=== PATIENT | male | born 1980 | race American Indian/Alaskan Native ===

== ENCOUNTER 2020-12-07 10:12 | Emergency (ER) | payer OTHER, SELFPAY ==
[2020-12-07 10:48] VITALS: BP 123/83; PULSE 93; RESP 16; TEMP 37.1; O2SAT 97
--- NOTE | 2020-12-07 11:00 | ED.DENTAL ---
HPI - Dental/Oral General Chief complaint: Dental/Oral <Felipe Bruce NP - Last Filed: 12/07/20 11:07> Stated complaint: dental pain <Felipe Bruce NP - Last Filed: 12/07/20 11:07> Time Seen by Provider: 12/07/20 10:59 <Felipe Bruce NP - Last Filed: 12/07/20 11:07> Source: patient <Felipe Bruce NP - Last Filed: 12/07/20 11:07> Mode of arrival: ambulatory <Felipe Bruce NP - Last Filed: 12/07/20 11:07> Limitations: no limitations <Felipe Bruce NP - Last Filed: 12/07/20 11:07> History of Present Illness MD Complaint: tooth pain <Felipe Bruce NP - Last Filed: 12/07/20 11:07> Location: Tooth # ([id number] ) <Felipe Bruce NP - Last Filed: 12/07/20 11:07> Severity scale (1-10): 6 <Felipe Bruce NP - Last Filed: 12/07/20 11:07> Relieving factors: nothing <Felipe Bruce NP - Last Filed: 12/07/20 11:07> Context: history of dental caries <Felipe Bruce NP - Last Filed: 12/07/20 11:07> Treatment prior to arrival: none <Felipe Bruce NP - Last Filed: 12/07/20 11:07> Related Data Home medications: Previous Rx's Medication Instructions Recorded ibuprofen 800 mg PO Q8H PRN #30 tab 12/07/20 penicillin V potassium 500 mg PO Q12H 10 Days #20 tab 12/07/20 <Felipe Bruce NP - Last Filed: 12/07/20 11:07> Allergies/adverse reactions: Allergies Allergy/AdvReac Type Severity Reaction Status Date / Time No Known Allergies Allergy Unverified 07/21/20 15:05 <Felipe Bruce NP - Last Filed: 12/07/20 11:07> Review of Systems Review of Systems: Constitutional: No Weight loss, No Fever, No Chills, No Night Sweats, No Fatigue, No Malaise ENT/Mouth: As noted in HPI Eyes: No Eye Pain, No Swelling, No Redness, No Foreign Body, No Discharge, No Vision Changes Cardiovascular: No Chest Pain, No SOB, No Dyspnea on Exertion, No Orthopnea, No Edema, No Palpitations Respiratory: Negative Gastrointestinal: Negative Genitourinary: Negative Musculoskeletal: No joint pain, No Myalgias, No Joint Swelling Skin: No Skin Lesions, No rash Neuro: No Weakness, No Numbness, No Paresthesias, No Loss of Consciousness, No Dizziness, No Headache Psych: No Social Issues Heme/Lymph: Negative Endocrine: Negative <Felipe Bruce NP - Last Filed: 12/07/20 11:07> Yes all other systems are reviewed and are negative <Felipe Bruce NP - Last Filed: 12/07/20 11:07> [facility] Social History Social History: Social History Smoking Status: Current every day smoker Use of substances other than those prescribed or required for medical reasons: No Advance Directives: No Advance Directives Information Provided: No <Felipe Bruce NP - Last Filed: 12/07/20 11:07> Physical Exam Vital Signs: Vital Signs: Last Vital Signs Temp 98.8 F 12/07/20 10:48 Pulse 93 12/07/20 10:48 Resp 16 12/07/20 10:48 BP 123/83 12/07/20 10:48 Pulse Ox 97 12/07/20 10:48 Body Mass Index 20.0 Reviewed <Felipe Bruce NP - Last Filed: 12/07/20 11:07> Vital Signs: Last Vital Signs Temp 98.8 F 12/07/20 10:48 Pulse 93 12/07/20 10:48 Resp 16 12/07/20 10:48 BP 123/83 12/07/20 10:48 Pulse Ox 97 12/07/20 10:48 Body Mass Index 20.0 <Michael Alcazar MD - Last Filed: 12/07/20 11:34> Const: General: cooperative and healthy appearing; No acute distress or intoxicated appearing <Felipe Bruce NP - Last Filed: 12/07/20 11:07> Nutritional Appearance: average body habitus <Felipe Bruce NP - Last Filed: 12/07/20 11:07> Orientation/consciousness: patient oriented x3 <Felipe Bruce NP - Last Filed: 12/07/20 11:07> HENMT: Head: Yes normal to inspection <Felipe Bruce NP - Last Filed: 12/07/20 11:07> Ears: hearing grossly normal bilaterally <Felipe Bruce NP - Last Filed: 12/07/20 11:07> Eyes: General: appearance normal, both eyes and all related structures <Felipe Bruce NP - Last Filed: 12/07/20 11:07> Visual Siddiqui: normal visual siddiqui by confrontation <Felipe Bruce NP - Last Filed: 12/07/20 11:07> Neck: Neck: Yes normal visual inspection, No positive Brudzinski's sign, No positive Kernig's sign and No tender <Felipe Bruce NP - Last Filed: 12/07/20 11:07> Thyroid: Thyroid normal <Felipe Bruce NP - Last Filed: 12/07/20 11:07> Chest: Chest palpation & inspection: normal inspection of the chest <Felipe Bruce NP - Last Filed: 12/07/20 11:07> Resp: Effort & Inspection: normal respiratory effort <Felipe Bruce NP - Last Filed: 12/07/20 11:07> Neuro: General: patient oriented x3 <Felipe Bruce NP - Last Filed: 12/07/20 11:07> Extrem: General: Yes normal to inspection <Felipe Bruce NP - Last Filed: 12/07/20 11:07> Course Course Course Narrative: I have reviewed the chart <Michael Alcazar MD - Last Filed: 12/07/20 11:34> Discharge Plan Discharge Clinical Impression: Dental caries <Felipe Bruce NP - Last Filed: 12/07/20 11:07> Patient Disposition: Home, Self-Care <Felipe Bruce NP - Last Filed: 12/07/20 11:07> Instructions: Toothache (ED) <Felipe Bruce NP - Last Filed: 12/07/20 11:07> Additional Instructions: Soft foods Two on the good side Push fluids Take medication prescribed Topical Orajel [id number] Follow-up with dentist for further evaluation treatment Return if any concerns or worsening symptoms Thank you <Felipe Bruce NP - Last Filed: 02/03/21 11:07> Prescriptions: New penicillin V potassium 500 mg tablet 500 mg PO Q12H 10 Days Qty: 20 RF: 0 ibuprofen 800 mg tablet 800 mg PO Q8H PRN (Reason: pain) Qty: 30 RF: 0 <Felipe Bruce NP - Last Filed: 12/07/20 11:07> Referrals: Shawna West MD [Primary Care Provider] - 1 week ( Call dentist tomorrow) <Felipe Bruce NP - Last Filed: 12/07/20 11:07> Stand Alone Forms: Work/School Release <Felipe Bruce NP - Last Filed: 12/07/20 11:07> Interventions: ED Discharge Assessment Last Done: 12/07/20 11:31 <Felipe Bruce NP - Last Filed: 12/07/20 11:07> Discharge Date/Time: 12/07/20 11:32 <Felipe Bruce NP - Last Filed: 12/07/20 11:07>
== END 2020-12-07 11:32 | disposition home or self-care (01) ==
PROVIDERS: Emergency Provider Emergency Medicine; PCP Internal Medicine
DX: K02.9 Dental caries, unspecified (principal); K08.89 Other specified disorders of teeth and supporting structures; F17.200 Nicotine dependence, unspecified, uncomplicated
CPT/HCPCS: 99283

== ENCOUNTER 2020-12-08 14:22 | Emergency (ER) | payer OTHER, SELFPAY ==
[2020-12-08 15:43] VITALS: BP 100/70; PULSE 82; RESP 16; O2SAT 97; BMI 23.3
--- NOTE | 2020-12-08 15:47 | ED.GENADULT ---
HPI - General Adult General Chief complaint: Dental/Oral Stated complaint: dental pain Time Seen by Provider: 12/08/20 15:10 Source: patient Mode of arrival: ambulatory Limitations: no limitations History of Present Illness HPI narrative: 40 yo male here with right lower dental pain x weeks. Seen yesterday and diagnosed with dental caries/infection. Started penicillin last night and took 2 total doses. Continued pain unrelieved with OTC. No fevers/chills. Also complaining of left wrist swelling bump x month. No injury or trauma. Related Data Previous Rx's Medication Instructions Recorded ibuprofen 800 mg PO Q8H PRN #30 tab 12/07/20 penicillin V potassium 500 mg PO Q12H 10 Days #20 tab 12/07/20 Allergies Allergy/AdvReac Type Severity Reaction Status Date / Time No Known Allergies Allergy Verified 12/08/20 15:47 Review of Systems Review of Systems: Yes all other systems are reviewed and are negative Constitutional: Constitutional: Reports no additional constitutional complaints, Denies body ache(s), Denies chills, Denies fever(s), Denies headache(s) and Denies weakness Eyes: Eyes: Reports no additional eye complaints and Denies change in vision ENT: Reports system reviewed and no additional complaints, except as documented, Denies dizziness, Denies headache(s), Denies nasal congestion, Denies nasal discharge and Denies neck pain Comments: +dental pain Cardiovascular: Cardiovascular: Reports no additional cardiovascular complaints, Denies chest pain, Denies leg edema and Denies dyspnea Respiratory: Respiratory: Reports no additional respiratory complaints, Denies cough and Denies dyspnea Gastrointestinal: Gastrointestinal: Reports no additional gastrointestinal complaints, Denies abdominal pain, Denies diarrhea, Denies nausea and Denies vomiting Genitourinary: Genitourinary: Denies urinary incontinence Musculoskeletal: Musculoskeletal: Reports no additional musculoskeletal complaints, Denies back pain, Denies arthralgias, Denies joint swelling, Denies neck pain, Denies numbness and Denies tingling Integumentary/Breasts: Skin/Breast: Reports system reviewed and no additional complaints, except as docu and Denies rash Neurologic: Reports system reviewed and no additional complaints, except as documented, Denies Abnormal speech present, Denies dizziness, Denies headache(s), Denies numbness, Denies tingling and Denies weakness [facility] Past Medical History Attestation statement: The following information was validated with the patient. Source: old records reviewed and nursing notes reviewed Medical History No known health problems Social History Social History Smoking Status: Current every day smoker Advance Directives: No Advance Directives Information Provided: No Physical Exam Vital Signs: Vital Signs: Last Vital Signs Pulse 82 12/08/20 15:43 Resp 16 12/08/20 15:43 BP 100/70 12/08/20 15:43 Pulse Ox 97 12/08/20 15:43 Body Mass Index 23.3 Const: General: cooperative, healthy appearing, comfortable and no acute distress Orientation/consciousness: patient oriented x3 Limitations: no limitations HENMT: Other: no trismus Head: Yes normal to inspection Ears: hearing grossly normal bilaterally General nose exam: Normal external nose present Face and sinus: Yes normal facial exam Mouth: Normal oral and palatal mucosa present Teeth image: 1. extensive decay, caries broken tooth with surrounding erythema, swelling and tenderness Throat: Yes posterior oropharynx normal and Yes uvula midline Eyes: General: appearance normal, both eyes and all related structures Pupils: Equal, round and reactive pupils present Neck: Neck: Yes normal visual inspection Chest: Chest palpation & inspection: normal inspection of the chest Resp: Effort & Inspection: normal respiratory effort Auscultation: clear to auscultation bilaterally Cardio: Rate: regular rate Rhythm: regular rhythm Peripheral pulses: Peripheral pulses 2+ throughout GI: Inspection: Yes normal to inspection Palpation (GI): Soft to palpation and nontender Auscultation: normal bowel sounds Back/Spine/Pelvis: Thoracic/Lumbar Spine: thoracic and lumbar spine normal to inspection Skin: General skin exam: no rashes or lesions noted Neuro: General: patient oriented x3, no focal motor deficits and normal sensation to monofilament Cranial nerves: Yes Equal, round and reactive pupils present Cognition (Neuro): normal cognition Speech: No Abnormal speech present Gait exam (Neuro): Normal gait present Motor exam (neuro): 5/5 motor strength present throughout Extrem: Other: Left volar wrist ganglion cyst noted General: Yes normal to inspection Course Course Course Narrative: Dental pain, tenderness, local infection continued despite two doses of PCN. No trismus. Local infection with no obvious abscess or fluid collection. Toradol IM with improvement in the ED. Has not seen dentist or called clinic. Given list. Left wrist ganglion cyst. Given ortho referral. Reviewed worrisome signs/symptoms with patient and when to return to ED. Comfortable with discharge home. Discharge Plan Discharge Clinical Impression: Dental caries, Ganglion cyst Patient Disposition: Home, Self-Care Instructions: Toothache (ED) Additional Instructions: Salt water gargles Topical oragel See dental clinic list Prescriptions: No Action penicillin V potassium 500 mg tablet 500 mg PO Q12H 10 Days Qty: 20 RF: 0 ibuprofen 800 mg tablet 800 mg PO Q8H PRN (Reason: pain) Qty: 30 RF: 0 Referrals: Chester Daugherty MD [Physician] - 2 days Stand Alone Forms: Work/School Release
[2020-12-08] MEDS: Ketorolac Tromethamine 60 MG/2 ML VIAL IM (15:59)
== END 2020-12-08 17:02 | disposition home or self-care (01) ==
LOC: HO.ED 16:41
PROVIDERS: Emergency Provider Emergency Medicine
DX: K02.9 Dental caries, unspecified (principal); M67.48 Ganglion, other site; Z79.899 Other long term (current) drug therapy
CPT/HCPCS: 96372; 99283; 99284; J1885

== ENCOUNTER 2020-12-12 14:59 | Emergency (ER) | payer OTHER, SELFPAY ==
--- NOTE | 2020-12-12 16:53 | ED.GENADULT ---
HPI - General Adult General Stated complaint: covid symptoms Time Seen by Provider: 12/12/20 15:27 Source: patient Mode of arrival: ambulatory Limitations: no limitations History of Present Illness HPI narrative: Pt here c/o COVID symptoms x several days, seeking testing. Related Data Previous Rx's Medication Instructions Recorded ibuprofen 800 mg PO Q8H PRN #30 tab 12/07/20 penicillin V potassium 500 mg PO Q12H 10 Days #20 tab 12/07/20 Allergies Allergy/AdvReac Type Severity Reaction Status Date / Time No Known Allergies Allergy Verified 12/08/20 15:47 PENDING SALE TO [facility] Past Medical History Medical History No known health problems Social History Social History Smoking Status: Current every day smoker Advance Directives: No Advance Directives Information Provided: Yes Course Course Course Narrative: After seeing patient, he eloped from the emergency department prior to his test being completed. Well appearing, steady gait. Discharge Plan Discharge Clinical Impression: Viral syndrome Patient Disposition: Elopement Prescriptions: No Action penicillin V potassium 500 mg tablet 500 mg PO Q12H 10 Days Qty: 20 RF: 0 ibuprofen 800 mg tablet 800 mg PO Q8H PRN (Reason: pain) Qty: 30 RF: 0
== END 2020-12-12 17:00 | disposition left against medical advice (07) ==
PROVIDERS: Emergency Provider Emergency Medicine
DX: B34.9 Viral infection, unspecified (principal)

== ENCOUNTER 2021-07-13 09:50 | Emergency (ER) | payer OTHER, SELFPAY ==
[2021-07-13 10:39] VITALS: BP 126/84; PULSE 85; RESP 14; TEMP 37.6; O2SAT 98; BMI 23.3
--- NOTE | 2021-07-13 11:24 | ED.GENADULT ---
HPI - General Adult General Chief complaint: General Medical Stated complaint: SWOLLEN GLANDS Time Seen by Provider: 07/13/21 11:24 Source: patient Mode of arrival: ambulatory Limitations: no limitations History of Present Illness HPI narrative: 41 y/o male presenting to the ER with left sided throat pain for the last 1 week. He reports his entire throat hurts but it is worse on the left. Pain is worse with swallowing and touching his swollen glands in his neck. His voice feels normal and he has no trouble handling secretions. No fever or chills. He feels like the left side of this throat is swollen. No dental pain. MD complaint: sore throat Onset (ago): week(s) (1) Location: mouth Radiation: non-radiation Severity: severe Severity scale (1-10): 9 Quality: stabbing and aching Pain Consistency: constant Relieving factors: none Exacerbating factors: eating Associated symptoms: denies other symptoms Treatments prior to arrival: none Related Data Previous Rx's Medication Instructions Recorded ibuprofen 800 mg tablet 800 mg PO Q8H PRN #30 tab 12/07/20 penicillin V potassium 500 mg 500 mg PO Q12H 10 Days #20 tab 12/07/20 tablet amoxicillin 875 mg-potassium 1 tab PO BID #20 tab 07/13/21 clavulanate 125 mg tablet (Augmentin) ibuprofen 600 mg tablet 600 mg PO Q8H PRN #20 tab 07/13/21 Allergies Allergy/AdvReac Type Severity Reaction Status Date / Time No Known Allergies Allergy Verified 12/08/20 15:47 Review of Systems Review of Systems: Constitutional: No Fever, No Chills ENT/Mouth: + sore throat, No Rhinorrhea, No Swallowing Difficulty Cardiovascular: No Chest Pain, No SOB Respiratory: No Cough, No Sputum, No Wheezing, No dyspnea Gastrointestinal: + Nausea, No Vomiting, No Diarrhea, No abdominal Pain Genitourinary: No Dysuria, No Urinary Frequency, No Hematuria Musculoskeletal: No joint pain, + Myalgias Skin: No Skin Lesions, No rash Neuro: No Weakness, No Numbness, No Dizziness,+ Headache Heme/Lymph: No Bruising, No Lymphadenopathy PMFSH Past Medical History Medical History No known health problems Social History Social History Advance Directives: No Physical Exam Vital Signs: Vital Signs: Last Vital Signs Temp 99.6 F 07/13/21 10:39 Pulse 85 07/13/21 10:39 Resp 14 07/13/21 10:39 BP 126/84 07/13/21 10:39 Pulse Ox 98 07/13/21 10:39 Body Mass Index 23.3 Appearance: Alert. Oriented X3. No acute distress. Eyes: Pupils equal, round and reactive to light. ENT: Pharynx with moist mucus membranes. bilateral tonsillar swelling and erythema, uvula midline. handling secretions normally. Neck: Normal inspection. Left sided lymphadenopathy in the submandibular areas and anterior cervical chains CVS: Normal heart rate and rhythm. Pulses normal. Respiratory: No respiratory distress. Breath sounds normal. Speaking in complete sentences Skin: Skin warm and dry. Normal skin color. Normal skin turgor. No rashes. Extremities: No lower extremity edema. Neuro: Oriented X 3. nonfocal Course Course Course Narrative: 41 y/o male presents with 1 week of sore throat L>R. No evidence of peritonsillar or RP abscess. He is afebrile and appears well. He has LAD in his neck that is tender. Strep is positive. Will treat with 10 days of abx and NSAIDs. Stable for d/c home. Medical Decision Making Lab Data Labs: Lab Results 07/13/21 Range/Units 11:59 S. pyogenes GrpA YULI Positive A (Negative) Critical Care Time Critical Care Time Critical Care Time: No Discharge Plan Discharge Clinical Impression: Acute streptococcal pharyngitis Patient Disposition: Home, Self-Care Instructions: Strep Throat (ED) Additional Instructions: Take the prescribed antibiotic as directed. Use warm salt water gargles several times per day. Take the prescribed anti-inflammatory medication as needed for pain. Recommend over the counter Chloraseptic spray to help with throat pain. Follow up with your doctor as needed. Prescriptions: New amoxicillin-pot clavulanate [Augmentin] 875-125 mg tablet 1 tab PO BID Qty: 20 RF: 0 ibuprofen 600 mg tablet 600 mg PO Q8H PRN (Reason: pain) Qty: 20 RF: 0 No Action penicillin V potassium 500 mg tablet 500 mg PO Q12H 10 Days Qty: 20 RF: 0 ibuprofen 800 mg tablet 800 mg PO Q8H PRN (Reason: pain) Qty: 30 RF: 0 Stand Alone Forms: Work/School Release Interventions: ED Discharge Assessment Last Done: 07/13/21 12:49 Discharge Date/Time: 07/13/21 12:49
[2021-07-13] MEDS: Amoxicillin/Potassium Clav 875 MG TABLET PO (12:29)
[2021-07-13] MEDS: Ibuprofen 800 MG TABLET PO (12:29)
[2021-07-13] MEDS: dexAMETHasone 2 MG TABLET 10 MG PO (12:29)
[2021-07-13 12:32] LABS: Strep A Nucleic Acid Positive (Negative)
== END 2021-07-13 12:49 | disposition home or self-care (01) ==
PROVIDERS: Emergency Provider Emergency Medicine
DX: J02.0 Streptococcal pharyngitis (principal)
CPT/HCPCS: 36415; 87651; 99283; J8540

== ENCOUNTER 2021-08-02 11:59 | Outpatient (REF) | payer OTHER, SELFPAY | END 2021-08-02 12:00 | disposition home or self-care (01) | LOC: HO.LAB 11:59 | PROVIDERS: Visit Provider Internal Medicine | DX: Z20.822 Contact with and (suspected) exposure to COVID-19 (principal) | CPT/HCPCS: C9803; U0003; U0005 ==

== ENCOUNTER 2021-09-28 12:02 | Emergency (ER) | payer OTHER, SELFPAY ==
--- NOTE | ~2021-09-28 | XR_ITS ---
EXAMINATION: XR SHOULDER, LEFT CLINICAL INFORMATION: Left shoulder pain x5 months. COMPARISON: None TECHNIQUE: AP external rotation, Grashey, scapular Y, and axillary views of the left shoulder. FINDINGS: The bones and soft tissues are normal. No fracture. Glenohumeral and acromioclavicular alignment is anatomic with normal joint space. No abnormal soft tissue calcifications. XR/XR shoulder LT min 2V IMPRESSION: Normal left shoulder.
[2021-09-28 12:05] VITALS: BP 135/83; PULSE 89; RESP 18; TEMP 36.8; O2SAT 99; BMI 23.3
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
[2021-09-28] MEDS: Ketorolac Tromethamine 60 MG/2 ML VIAL IM (12:48)
== END 2021-09-28 12:52 | disposition home or self-care (01) ==
PROVIDERS: Emergency Provider Emergency Medicine
DX: M25.512 Pain in left shoulder (principal); Z79.899 Other long term (current) drug therapy
CPT/HCPCS: 73030; 96372; 99283; 99284; J1885

== ENCOUNTER 2021-10-19 08:40 | Emergency (ER) | payer OTHER, SELFPAY ==
[2021-10-19 08:48] VITALS: BP 139/96; PULSE 77; RESP 18; TEMP 37; O2SAT 98; BMI 23.3
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
== END 2021-10-19 09:51 | disposition home or self-care (01) ==
PROVIDERS: Emergency Provider Emergency Medicine
DX: K08.89 Other specified disorders of teeth and supporting structures (principal); K02.9 Dental caries, unspecified; K03.81 Cracked tooth
CPT/HCPCS: 99283

== ENCOUNTER 2023-07-13 16:43 | Emergency (ER) | payer OTHER, SELFPAY ==
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
[2023-07-13 18:35] VITALS: BP 133/101; PULSE 97; RESP 18; TEMP 37.4; O2SAT 99; BMI 22.8
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
[2023-07-13 20:31] VITALS: BP 143/89; PULSE 92; RESP 20; O2SAT 99
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
--- NOTE | 2023-07-13 21:49 | PC.NURSE ---
t/n observed pt ambulating oob. this nurse again encouraged call read use. pt stated that he didnt know how to use urinal. escorted pt back into room. urinal used- call read within reach
== END 2023-07-13 22:10 | disposition home or self-care (01) ==
PROVIDERS: Emergency Provider Emergency Medicine
DX: S06.0XAA Concussion with loss of consciousness status unknown, initial encounter (principal); S60.221A Contusion of right hand, initial encounter; S80.02XA Contusion of left knee, initial encounter; S00.81XA Abrasion of other part of head, initial encounter; S80.212A Abrasion, left knee, initial encounter; Y04.2XXA Assault by strike against or bumped into by another person, initial encounter; R51.9 Headache, unspecified; F17.200 Nicotine dependence, unspecified, uncomplicated; Y93.9 Activity, unspecified; Y92.9 Unspecified place or not applicable; Y99.9 Unspecified external cause status; Z79.899 Other long term (current) drug therapy
CPT/HCPCS: 70450; 70486; 72125; 73110; 73130; 99283; 99284

== ENCOUNTER 2023-07-15 14:43 | Emergency (ER) | payer OTHER, SELFPAY ==
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
[2023-07-15 14:57] VITALS: BP 140/79; PULSE 90; RESP 18; TEMP 36.7; O2SAT 98; BMI 26.6
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
[2023-07-15] MEDS: Ketorolac Tromethamine 15 MG/ML VIAL 30 MG IM (18:05)
[2023-07-15 18:28] LABS: MANUAL DIFF FLAG NO
[2023-07-15 18:41] LABS: Lactic Acid 1.1 mmol/L (0.5-2.0)
[2023-07-15 18:50] LABS: Alanine Aminotransferase 20 U/L (0-40); Albumin Level 4.6 g/dL (3.5-5.0); Alkaline Phosphatase 67 U/L (39-117); Aspartate Amino Transferase 28 U/L (5-37); Bilirubin Total 1.7 mg/dL (0.0-1.0); Blood Urea Nitrogen 4 mg/dL (9-16); C Reactive Protein 0.84 mg/dL (< or = 0.50); Calcium 9.6 mg/dL (8.4-10.2); Carbon Dioxide 26 mmol/L (22-29); Chloride 107 mmol/L (96-108); Creatinine Clr Calc Pharmacy 105.7; Estimated Glomerular Filt Rate > 60; Glucose Random 87 mg/dL (60-115); Magnesium 2.2 mg/dL (1.6-2.6); Potassium 3.5 mmol/L (3.3-5.1); Sodium 142 mmol/L (135-145); Total Protein 7.9 g/dL (6.5-8.0)
[2023-07-15 18:51] LABS: Anion Gap 13 (12-20)
[2023-07-15 18:54] LABS: Basophils Percent Auto 0.3 % (0-2); Eosinophils Absolute Auto 0.1 X10*3/uL (0.0-0.4); Hematocrit 49.5 % (42.0-52.0); Hemoglobin 17.1 g/dl (14.0-18.0); Imm Gran Abs Auto 0.03 X10*3/uL (0.00-0.03); Imm Gran Pct Auto 0.3 % (0.0-0.4); Lymphocytes Absolute Auto 0.9 X10*3/uL (1.2-4.9); Lymphocytes Percent Auto 8.7 % (20-40); Mean Corpuscular HGB Conc 34.5 g/dl (31.0-36.0); Mean Corpuscular Hemoglobin 32.6 pg (27.0-33.0); Mean Corpuscular Volume 94.5 fL (80.0-98.0); Mean Platelet Volume 9.8 fL (9.4-12.4); Monocytes Absolute Auto 0.8 X10*3/uL (0.1-1.2); Monocytes Percent Auto 7.1 % (2-11); Neutrophils Absolute Auto 8.9 x10*3/uL (2.0-8.3); Neutrophils Percent Auto 82.6 % (45-73); Platelet Count 374 X10*3/uL (160-400); Red Blood Count 5.24 X10*6/uL (4.60-5.80); Red Cell Distribution Width 12.4 % (11.0-16.0); White Blood Count 10.8 X10*3/uL (4.8-10.8)
[2023-07-15 19:31] LABS: Erythrocyte Sedimentation Rate 2 MM/HR (0-15)
== END 2023-07-15 20:26 | disposition home or self-care (01) ==
PROVIDERS: Physician Assistant; Emergency Provider Emergency Medicine
DX: S89.92XA Unspecified injury of left lower leg, initial encounter (principal); M25.562 Pain in left knee; Y04.2XXA Assault by strike against or bumped into by another person, initial encounter; Y93.9 Activity, unspecified; Y92.9 Unspecified place or not applicable; Y99.9 Unspecified external cause status; Z79.899 Other long term (current) drug therapy
CPT/HCPCS: 36415; 73564; 80053; 83605; 83735; 85025; 85652; 86140; 87040; 96372; 99283; 99284; J1885

== ENCOUNTER 2023-09-09 10:26 | Emergency (ER) | payer OTHER, SELFPAY ==
[2023-09-09 10:38] VITALS: BP 130/95; PULSE 83; RESP 18; TEMP 36.9; O2SAT 98; BMI 25.0
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
[2023-09-09 11:57] LABS: Appearance Urine Clear; Color Urine Yellow; Glucose Urine UA Negative (Negative); Leukocyte Esterase Urine Trace (Negative); Nitrite Urine Negative (Negative); UMIC TRIGGER UACC YES; Urine Blood Negative (Negative); Urine Ketones Negative (Negative); Urine Protein Negative (Neg-Trace)
[2023-09-09 12:00] LABS: Bacteria Urine None Seen (None Seen); Hyaline Casts Urine 0-2 /LPF (0-2); RBC Urine 0-2 /HPF (0-2); UACC Culture Trigger YES
[2023-09-09] MEDS: Doxycycline Monohydrate 100 MG CAPSULE PO (12:06)
[2023-09-09] MEDS: cefTRIAXone sodium 500 MG, Lidocaine HCl 1 % MPF 1 ML IM (12:06)
[2023-09-09 12:46] LABS: CT PCR DETECTED (Not Detect.); NG PCR NOT DETECTED (Not Detect.)
== END 2023-09-09 12:22 | disposition home or self-care (01) ==
PROVIDERS: Physician Assistant; Emergency Provider Emergency Medicine
DX: A74.9 Chlamydial infection, unspecified (principal); Z20.2 Contact with and (suspected) exposure to infections with a predominantly sexual mode of transmission; F17.200 Nicotine dependence, unspecified, uncomplicated; Z71.6 Tobacco abuse counseling; Z79.899 Other long term (current) drug therapy
CPT/HCPCS: 0353U; 81001; 87086; 96372; 99284; J0696

== ENCOUNTER 2023-11-06 17:14 | Emergency (ER) | payer OTHER, SELFPAY ==
[2023-11-06 17:33] VITALS: BP 160/88; PULSE 100; RESP 18; TEMP 37.3; O2SAT 97; BMI 22.4
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
== END 2023-11-06 21:31 | disposition left against medical advice (07) ==
PROVIDERS: Emergency Provider Emergency Medicine
DX: R07.9 Chest pain, unspecified (principal); R06.02 Shortness of breath; J02.9 Acute pharyngitis, unspecified; Z20.822 Contact with and (suspected) exposure to COVID-19; Z20.828 Contact with and (suspected) exposure to other viral communicable diseases
CPT/HCPCS: 0241U; 80048; 80076; 83690; 84484; 85025; 93005; 99283

== ENCOUNTER → 2023-11-06 17:16 | Outpatient (BNV) | payer OTHER, SELFPAY | PROVIDERS: Emergency Provider Emergency Medicine; Visit Provider Internal Medicine Cardiovascular Disease | DX: R07.9 Chest pain, unspecified (principal) | CPT/HCPCS: 93010 ==

== ENCOUNTER 2023-11-07 03:06 | Emergency (ER) | payer OTHER, SELFPAY ==
[2023-11-07 03:11] VITALS: BP 134/75; PULSE 110; RESP 18; TEMP 37.6; O2SAT 95; BMI 26.3
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
== END 2023-11-07 07:48 | disposition home or self-care (01) ==
PROVIDERS: Emergency Provider Internal Medicine; PCP Student in an Organized Health Care Education/Training Program
DX: J10.1 Influenza due to other identified influenza virus with other respiratory manifestations (principal); R05.9 Cough, unspecified
CPT/HCPCS: 0241U; 71045; 96372; 99284; J1885

== ENCOUNTER 2023-11-07 20:07 | Emergency (ER) | payer OTHER, SELFPAY ==
[2023-11-07 20:24] VITALS: BP 103/80; PULSE 118; RESP 20; TEMP 38.1; O2SAT 97; BMI 25.0
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
[2023-11-07 22:17] VITALS: TEMP 37
== END 2023-11-07 22:23 | disposition home or self-care (01) ==
PROVIDERS: Emergency Provider Emergency Medicine; PCP Student in an Organized Health Care Education/Training Program
DX: J10.1 Influenza due to other identified influenza virus with other respiratory manifestations (principal); R05.9 Cough, unspecified
CPT/HCPCS: 99283

== ENCOUNTER 2023-11-08 07:35 | Emergency (ER) | payer OTHER, SELFPAY ==
[2023-11-08 07:43] VITALS: BP 122/74; PULSE 86; RESP 16; TEMP 37.1; O2SAT 95; BMI 25.0
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
== END 2023-11-08 09:59 | disposition home or self-care (01) ==
PROVIDERS: Emergency Provider Student in an Organized Health Care Education/Training Program
DX: Z20.2 Contact with and (suspected) exposure to infections with a predominantly sexual mode of transmission (principal); Z79.899 Other long term (current) drug therapy
CPT/HCPCS: 0353U; 99282; 99283

== ENCOUNTER 2023-11-22 16:34 | Emergency (ER) | payer OTHER, SELFPAY ==
--- NOTE | ~2023-11-22 | XR_ITS ---
EXAMINATION: XR CHEST CLINICAL INFORMATION: Chest pain COMPARISON: Chest 11/07/2023 TECHNIQUE: 2 views of the chest were obtained. FINDINGS: No significant abnormality is noted involving the heart, lungs, mediastinum, bony thorax or soft tissues. XR/XR chest 2V IMPRESSION: Unremarkable chest chest examination.. No change from previous study 11/07/2023.
[2023-11-22 16:47] VITALS: BP 140/99; PULSE 76; O2SAT 98
--- NOTE | 2023-11-22 16:49 | ECG_ITS ---
Test Reason : CHEST PAIN Blood Pressure : / mmHG Vent. Rate : 084 BPM Atrial Rate : 084 BPM P-R Int : 122 ms QRS Dur : 084 ms QT Int : 366 ms P-R-T Axes : 058 052 034 degrees QTc Int : 432 ms Normal sinus rhythm with sinus arrhythmia Normal ECG When compared with ECG of 06-NOV-2023 17:22, No significant change was found Referred By: Sofía Mullins Electronically Signed By:MAGDY LEYVA
[2023-11-22 17:05] VITALS: BP 132/95; PULSE 76; RESP 16; TEMP 36.5; O2SAT 98; BMI 23.3
[2023-11-22 17:28] LABS: MANUAL DIFF FLAG NO
[2023-11-22 17:29] LABS: Basophils Percent Auto 0.3 % (0-2); Eosinophils Absolute Auto 0.2 X10*3/uL (0.0-0.4); Eosinophils Percent Auto 1.8 % (0-4); Hematocrit 44.6 % (42.0-52.0); Hemoglobin 15.4 g/dl (14.0-18.0); Imm Gran Abs Auto 0.02 X10*3/uL (0.00-0.03); Imm Gran Pct Auto 0.2 % (0.0-0.4); Lymphocytes Absolute Auto 1.9 X10*3/uL (1.2-4.9); Lymphocytes Percent Auto 19.7 % (20-40); Mean Corpuscular HGB Conc 34.5 g/dl (31.0-36.0); Mean Corpuscular Hemoglobin 32.7 pg (27.0-33.0); Mean Corpuscular Volume 94.7 fL (80.0-98.0); Mean Platelet Volume 9.3 fL (9.4-12.4); Monocytes Percent Auto 10.5 % (2-11); Neutrophils Absolute Auto 6.4 x10*3/uL (2.0-8.3); Neutrophils Percent Auto 67.5 % (45-73); Platelet Count 451 X10*3/uL (160-400); Red Blood Count 4.71 X10*6/uL (4.60-5.80); Red Cell Distribution Width 12.1 % (11.0-16.0); White Blood Count 9.4 X10*3/uL (4.8-10.8)
[2023-11-22 17:34] LABS: INTERNATIONAL NORM RATIO 1.1 (0.9-1.1); Prothrombin Time 12.9 SEC (11.1-13.3)
[2023-11-22 17:47] LABS: Alanine Aminotransferase 19 U/L (0-40); Albumin Level 4.4 g/dL (3.5-5.0); Alkaline Phosphatase 62 U/L (39-117); Anion Gap 11 (12-20); Aspartate Amino Transferase 26 U/L (5-37); Bilirubin Total 0.5 mg/dL (0.0-1.0); Blood Urea Nitrogen 12 mg/dL (9-16); Calcium 9.7 mg/dL (8.4-10.2); Carbon Dioxide 28 mmol/L (22-29); Chloride 107 mmol/L (96-108); Creatinine Clr Calc Pharmacy 117.4; Estimated Glomerular Filt Rate > 60; Glucose Random 76 mg/dL (60-115); Lipase 162 U/L (8-78); Magnesium 2.3 mg/dL (1.6-2.6); Potassium 3.7 mmol/L (3.3-5.1); Sodium 142 mmol/L (135-145); Total Protein 7.4 g/dL (6.5-8.0)
[2023-11-22 17:56] LABS: Troponin-I High Sensitivity 4.4 ng/L (<3.5-35.0)
== END 2023-11-22 22:58 | disposition left against medical advice (07) ==
PROVIDERS: Physician Assistant Medical; Emergency Provider Emergency Medicine
DX: R07.9 Chest pain, unspecified (principal)
CPT/HCPCS: 36415; 71046; 80053; 83690; 83735; 84484; 85025; 85610; 93005; 99283

== ENCOUNTER → 2023-11-22 16:49 | Outpatient (BNV) | payer OTHER, SELFPAY | PROVIDERS: Emergency Provider Emergency Medicine; Visit Provider Internal Medicine | DX: R07.9 Chest pain, unspecified (principal) | CPT/HCPCS: 93010 ==

== ENCOUNTER 2023-11-24 02:44 | Emergency (ER) | payer OTHER, SELFPAY ==
--- NOTE | 2023-11-24 | ECG_ITS ---
Test Reason : CHEST PAIN Blood Pressure : / mmHG Vent. Rate : 079 BPM Atrial Rate : 079 BPM P-R Int : 128 ms QRS Dur : 086 ms QT Int : 396 ms P-R-T Axes : 060 046 036 degrees QTc Int : 454 ms Normal sinus rhythm Normal ECG When compared with ECG of 22-NOV-2023 17:43, No significant change was found Referred By: Generic ED Physician Electronically Signed By:MAGDY LEYVA
[2023-11-24 03:03] VITALS: BP 115/71; PULSE 89; RESP 18; TEMP 36.2; O2SAT 96; BMI 21.6
[2023-11-24 03:24] LABS: IDNOW Serial# 08D9AD1C; Strep A Nucleic Acid Negative (Negative)
[2023-11-24 03:32] LABS: COVID-19 Test Negative (Negative); IDNOW Serial# 9DB6401D
[2023-11-24 03:42] LABS: IDNOW Serial# 152EDE1D; Influenza A Negative (Negative); Influenza B2 Negative (Negative)
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
[2023-11-24 04:15] LABS: MANUAL DIFF FLAG NO
[2023-11-24 04:23] LABS: Basophils Percent Auto 0.2 % (0-2); Eosinophils Absolute Auto 0.2 X10*3/uL (0.0-0.4); Eosinophils Percent Auto 2.2 % (0-4); Hematocrit 41.4 % (42.0-52.0); Hemoglobin 14.1 g/dl (14.0-18.0); Imm Gran Abs Auto 0.03 X10*3/uL (0.00-0.03); Imm Gran Pct Auto 0.4 % (0.0-0.4); Lymphocytes Absolute Auto 1.9 X10*3/uL (1.2-4.9); Lymphocytes Percent Auto 23.6 % (20-40); Mean Corpuscular HGB Conc 34.1 g/dl (31.0-36.0); Mean Corpuscular Hemoglobin 31.8 pg (27.0-33.0); Mean Corpuscular Volume 93.5 fL (80.0-98.0); Mean Platelet Volume 9.2 fL (9.4-12.4); Monocytes Absolute Auto 0.5 X10*3/uL (0.1-1.2); Monocytes Percent Auto 6.5 % (2-11); Neutrophils Absolute Auto 5.5 x10*3/uL (2.0-8.3); Neutrophils Percent Auto 67.1 % (45-73); Platelet Count 416 X10*3/uL (160-400); Red Blood Count 4.43 X10*6/uL (4.60-5.80); Red Cell Distribution Width 12.2 % (11.0-16.0); White Blood Count 8.2 X10*3/uL (4.8-10.8)
[2023-11-24 04:30] LABS: Anion Gap 16 (12-20); Blood Urea Nitrogen 8 mg/dL (9-16); Calcium 9.2 mg/dL (8.4-10.2); Carbon Dioxide 24 mmol/L (22-29); Chloride 108 mmol/L (96-108); Estimated Glomerular Filt Rate > 60; Glucose Random 76 mg/dL (60-115); Potassium 3.6 mmol/L (3.3-5.1); Sodium 144 mmol/L (135-145)
[2023-11-24 04:34] VITALS: BP 112/79; PULSE 64; RESP 14; O2SAT 96
[2023-11-24 04:39] LABS: Troponin-I High Sensitivity 3.4 ng/L (<3.5-35.0)
[2023-11-24 06:11] VITALS: BP 114/74; PULSE 83; RESP 14; TEMP 36.9; O2SAT 97
[2023-11-24 07:24] LABS: Lipase 67 U/L (8-78)
== END 2023-11-24 07:47 | disposition home or self-care (01) ==
PROVIDERS: Emergency Provider Emergency Medicine
DX: R07.89 Other chest pain (principal); J02.9 Acute pharyngitis, unspecified; Z11.52 Encounter for screening for COVID-19; Z79.899 Other long term (current) drug therapy
CPT/HCPCS: 36415; 80048; 83690; 84484; 85025; 87502; 87635; 87651; 93005; 99284

== ENCOUNTER → 2023-11-24 03:00 | Outpatient (BNV) | payer OTHER, SELFPAY | PROVIDERS: Emergency Provider Emergency Medicine; Visit Provider Internal Medicine | DX: R07.9 Chest pain, unspecified (principal) | CPT/HCPCS: 93010 ==

== ENCOUNTER 2024-08-06 11:37 | Emergency (ER) | payer OTHER, SELFPAY ==
--- NOTE | ~2024-08-06 | XR_ITS ---
EXAMINATION: XR CHEST CLINICAL INFORMATION: Cough COMPARISON: X-ray 11/22/2023 TECHNIQUE: 2 views of the chest were obtained. FINDINGS: The cardiomediastinal silhouette is within normal limits. The lungs are well expanded. There is no focal consolidation, edema, or effusion. No pneumothorax. No acute osseous abnormality. XR/XR chest 2V IMPRESSION: No focal consolidation. No significant interval change from prior. Electronically signed by: Kirk Mota MD 08/06/2024 02:28 PM EDT
[2024-08-06 11:58] VITALS: BP 140/92; PULSE 95; RESP 16; TEMP 36.8; O2SAT 96; BMI 25.0
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
[2024-08-06 12:26] LABS: IDNOW Serial# 58CA691E; Strep A Nucleic Acid Negative (Negative)
[2024-08-06 12:56] LABS: Influenza A PCR NEGATIVE (Negative); Influenza B PCR NEGATIVE (Negative); Resp Syncy Virus RNA Qual PCR NEGATIVE (Negative); SARS COV2 PCR INHOUSE NEGATIVE (Negative)
[2024-08-06] MEDS: methylPREDNISolone Sod Succ 125 MG/2 ML VIAL 60 MG IM (12:56)
[2024-08-06 14:44] VITALS: BP 128/85; PULSE 90; RESP 16; TEMP 36.9; O2SAT 98
[2024-08-06 14:47] VITALS: BP 128/85; PULSE 90; RESP 16; TEMP 36.9; O2SAT 98
== END 2024-08-06 14:51 | disposition home or self-care (01) ==
PROVIDERS: Physician Assistant; Emergency Provider Student in an Organized Health Care Education/Training Program
DX: J06.9 Acute upper respiratory infection, unspecified (principal); F17.210 Nicotine dependence, cigarettes, uncomplicated; R05.9 Cough, unspecified; R51.9 Headache, unspecified; M79.10 Myalgia, unspecified site; Z03.818 Encounter for observation for suspected exposure to other biological agents ruled out
CPT/HCPCS: 0241U; 71046; 87651; 96372; 99284; J2919

== ENCOUNTER 2024-08-24 09:41 | Inpatient (IN) | payer OTHER, SELFPAY ==
--- NOTE | ~2024-08-24 | CT_ITS ---
EXAMINATION: CT CHEST ANGIOGRAPHY WITH IV CONTRAST CLINICAL INFORMATION: Pleuritic chest pain, Rt cavitary lesion. COMPARISON: XR Chest 2 Views 08/24/2024 and 08/06/2024 . TECHNIQUE: Prior to contrast administration, noncontrast localization images were obtained. Subsequently, multidetector volumetric imaging was performed from the thoracic inlet to the pubic symphysis through the chest, abdomen, and pelvis following the administration of 65 cc Omnipaque 350 intravenous contrast. No contrast reaction reported Sagittal, coronal, and MIP oblique sagittal (through the chest only) reformatted images were obtained on the CT workstation, uploaded to PACS, and reviewed. This CT examination was performed using dose optimization techniques as appropriate, variously including the following: *Automated exposure control *Adjustment of mA and/or kV according to patient size (this includes techniques or standardized protocols for targeted exams where dose is matched to indication/reason for exam; i.e. extremities or head) *Use of iterative reconstruction technique Total exam dose-length product: 185 mGy-cm FINDINGS: QUALITY OF STUDY/CONTRAST BOLUS: Satisfactory. PULMONARY ARTERIES: No central or segmental pulmonary emboli. CORONARY ARTERY CALCIUM: None THORACIC AORTA: No aneurysm or dissection. LUNG: There is a 2.5 x 2.2 x 2.8 cm cavitary mass in the right apex abutting the posterior pleural surface. There is an adjacent 5 mm pleural-based nodule (7:82). No other lung masses are seen. No consolidations. PLEURA: No pleural effusion or pneumothorax. MEDIASTINUM: Normal heart size. No pericardial effusion. There is mediastinal and right hilar lymphadenopathy seen. Some of the larger nodes are in the right hilum measuring 2.0 x 1.8 x 1.7 cm (7:182) as well as in the subcarinal region. A left paratracheal node measures 1.8 cm in short axis dimension (5:15). No evidence of septal bowing or right heart strain. CHEST WALL/AXILLA: No axillary or internal mammary lymphadenopathy. OSSEOUS STRUCTURES: No acute or suspicious osseous abnormality. VISUALIZED ABDOMEN: No significant findings in the upper abdomen. CT/CT angio chest PE protocol IMPRESSION: 1. No evidence of pulmonary emboli. 2. Cavitary mass in the right apex with mediastinal and right hilar lymphadenopathy. Differential diagnosis would include a cavitary pneumonia versus a cavitary neoplasm. VTE: negative. Fleischner guidelines were followed. Electronically signed by: Michael Fam MD 08/24/2024 03:13 PM EDT RP
--- NOTE | ~2024-08-24 | XR_ITS ---
EXAMINATION: XR CHEST 2 VIEW CLINICAL INFORMATION: Chest pain COMPARISON: 08/06/2024 TECHNIQUE: PA and lateral views of the chest obtained. FINDINGS: In the right upper lobe, there is a 2.9 cm thick-walled cavitary nodule. The left lung is clear. No pleural effusions are evident. The cardiomediastinal silhouette is stable. XR/XR chest 2V IMPRESSION: Right upper lobe 0.[address] of the chest with contrast is recommended for further evaluation. Differential considerations include both infectious processes such as abscess, fungal disease, and tuberculosis; and cavitary neoplasm. Electronically signed by: Jensen Moyer MD 08/24/2024 10:32 AM EDT
--- NOTE | 2024-08-24 09:43 | ECG_ITS ---
Test Reason : CHEST PAIN Blood Pressure : / mmHG Vent. Rate : 072 BPM Atrial Rate : 072 BPM P-R Int : 132 ms QRS Dur : 086 ms QT Int : 376 ms P-R-T Axes : 051 036 025 degrees QTc Int : 411 ms Normal sinus rhythm Minimal voltage criteria for LVH, may be normal variant ( Sokolow-Rosado ) Borderline ECG When compared with ECG of 24-NOV-2023 03:00, No significant change was found Referred By: Generic ED Physician Electronically Signed By:Jeramie Birmingham
[2024-08-24 09:47] VITALS: BP 135/88; PULSE 83; RESP 16; TEMP 36.5; O2SAT 98; BMI 23.3
[2024-08-24 10:16] LABS: MANUAL DIFF FLAG NO
[2024-08-24 10:26] LABS: Basophils Percent Auto 0.3 % (0-2); Eosinophils Absolute Auto 0.4 X10*3/uL (0.0-0.4); Eosinophils Percent Auto 3.8 % (0-4); Hematocrit 43.3 % (42.0-52.0); Hemoglobin 14.3 g/dl (14.0-18.0); Imm Gran Abs Auto 0.04 X10*3/uL (0.00-0.03); Imm Gran Pct Auto 0.4 % (0.0-0.4); Lymphocytes Absolute Auto 1.7 X10*3/uL (1.2-4.9); Lymphocytes Percent Auto 17.8 % (20-40); Mean Corpuscular Hemoglobin 31.5 pg (27.0-33.0); Mean Corpuscular Volume 95.4 fL (80.0-98.0); Mean Platelet Volume 9.1 fL (9.4-12.4); Monocytes Absolute Auto 0.8 X10*3/uL (0.1-1.2); Monocytes Percent Auto 8.4 % (2-11); Neutrophils Absolute Auto 6.7 x10*3/uL (2.0-8.3); Neutrophils Percent Auto 69.3 % (45-73); Platelet Count 442 X10*3/uL (160-400); Red Blood Count 4.54 X10*6/uL (4.60-5.80); Red Cell Distribution Width 12.2 % (11.0-16.0); White Blood Count 9.7 X10*3/uL (4.8-10.8)
[2024-08-24 10:36] LABS: Anion Gap 11 (12-20); Blood Urea Nitrogen 10 mg/dL (9-16); Calcium 9.8 mg/dL (8.4-10.2); Carbon Dioxide 28 mmol/L (22-29); Chloride 105 mmol/L (96-108); Estimated Glomerular Filt Rate > 60; Glucose Random 105 mg/dL (60-115); Potassium 3.9 mmol/L (3.3-5.1); Sodium 140 mmol/L (135-145)
[2024-08-24 10:55] LABS: Troponin-I High Sensitivity < 2.7 ng/L (<3.5-35.0)
[2024-08-24 11:08] VITALS: BP 109/77; PULSE 71; RESP 18; TEMP 36.7; O2SAT 96
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
[2024-08-24] MEDS: iohexoL 350 MG/ML 100 ML INFUS..BTL IV (12:52)
[2024-08-24 14:15] VITALS: BP 114/85; PULSE 70; RESP 20; O2SAT 97
[2024-08-24 14:23] LABS: Alanine Aminotransferase 19 U/L (0-40); Albumin Level 4.2 g/dL (3.5-5.0); Alkaline Phosphatase 74 U/L (39-117); Aspartate Amino Transferase 27 U/L (5-37); Bilirubin Direct 0.2 mg/dL (0.0-0.5); Bilirubin Total 0.6 mg/dL (0.0-1.0); C Reactive Protein 0.67 mg/dL (< or = 0.50); Lipase 21 U/L (8-78); Total Protein 7.7 g/dL (6.5-8.0)
[2024-08-24 14:55] LABS: Erythrocyte Sedimentation Rate 23 MM/HR (0-15)
--- NOTE | 2024-08-24 15:34 | PC.NURSE ---
Pt reports chest pains left sided X3 weeks worsening, sharp and aching, worsens with breathing and movement. Also reports intermittent cough, quit smoking 5 days ago. Alert and oriented, breathing even and unlabored. NSR on bedside cardiac montior. Denies other symptoms at this time
[2024-08-24 17:10] LABS: Lactic Acid 0.7 mmol/L (0.5-2.0)
[2024-08-24] MEDS: Piperacillin Sodium/Tazobactam 4.5 GM in 0.9 % Sodium Chloride 100 ML IV (17:14)
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
--- NOTE | 2024-08-24 17:41 | PHA.MEDREC ---
Addendum entered by Lilly Fisher RPh 08/24/24 18:34: Reviewed by [facility] Original Note: Pharmacy Consult ? Medication Reconciliation Pharmacy has completed the medication reconciliation. Spoke to patient and he had on hand a bottle with 2 pills left in it of Benzonate 100mg tabs taking 1 tab BID as needed for cough and states I took one this morning and I can breath better since taking it but claims since taking it hes been getting chest pains that wont subside. He also asked if he has any updates or if anything happens to him to call his friend Melissa @[phone] she lives in [place] and claims its his home girl but can answer questions about him if needed he stated.
[2024-08-24 19:52] VITALS: BP 97/75; PULSE 96; RESP 20; TEMP 36.8; O2SAT 95
[2024-08-24 22:51] VITALS: BP 113/83; PULSE 95; RESP 17; TEMP 36.3; O2SAT 95
[2024-08-24] MEDS: Doxycycline Hyclate 100 MG in 0.9 % Sodium Chloride 250 ML 166.67 MG IV (22:56)
[2024-08-25] MEDS: Piperacillin Sodium/Tazobactam 3.375 GM in 0.9 % Sodium Chloride 50 ML IV ×5 (00:40→23:40)
[2024-08-25] MEDS: 0.9 % Sodium Chloride Flush 3 ML SYRINGE IVFLUSH ×4 (01:08→23:50)
[2024-08-25] MEDS: LORazepam 2 MG/ML VIAL 1 MG IVPUSH (02:10)
--- NOTE | 2024-08-25 02:17 | PC.NURSE ---
patient was getting very agitated and complaining he couldn't sleep due to chest pain. Dr. Borjas notified and ordered a 1x dose IV push Ativan 1mg.
[2024-08-25 03:50] VITALS: BP 109/69; PULSE 82; RESP 18; TEMP 36.2; O2SAT 96
[2024-08-25 08:00] VITALS: BP 106/65; PULSE 84; RESP 12; TEMP 37.3; O2SAT 94
[2024-08-25] MEDS: Doxycycline Hyclate 100 MG in 0.9 % Sodium Chloride 250 ML 166.67 MG IV (08:18)
[2024-08-25] MEDS: Enoxaparin Sodium 40 MG/0.4 ML SYRINGE SUBCUT (08:18)
[2024-08-25 08:29] LABS: MRSA Nasal PCR NEGATIVE (Negative); SA Nasal PCR POSITIVE (Negative)
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
[2024-08-25 15:45] VITALS: BP 119/76; PULSE 91; RESP 14; TEMP 36.5; O2SAT 96
[2024-08-25] MEDS: Acetaminophen 325 MG TABLET 650 MG PO (17:25)
[2024-08-25 19:42] VITALS: BP 132/92; PULSE 88; RESP 18; TEMP 36.7
[2024-08-25] MEDS: traMADoL HCL 50 MG TABLET 25 MG PO (21:48)
--- NOTE | 2024-08-25 21:56 | PC.NURSE ---
patient was complaining of 10/10 pain and saying Tylenol didn't help him earlier and was requesting something different. Dr. Borjas notified and ordered Tramadol 25mg PO Q4H PRN.
[2024-08-25] MEDS: Calcium Carbonate 750 MG TAB.CHEW PO (23:49)
[2024-08-26 02:19] VITALS: BP 123/76; PULSE 82; RESP 18; TEMP 37.2; O2SAT 96
--- NOTE | 2024-08-26 02:27 | ECG_ITS ---
Test Reason : CP Blood Pressure : / mmHG Vent. Rate : 076 BPM Atrial Rate : 076 BPM P-R Int : 134 ms QRS Dur : 088 ms QT Int : 384 ms P-R-T Axes : 057 060 046 degrees QTc Int : 432 ms Normal sinus rhythm Normal ECG When compared with ECG of 26-AUG-2024 02:27, No significant change was found Referred By: Marilou Barth Electronically Signed By:Jeramie Birmingham
[2024-08-26] MEDS: Magnesium Hydrox/Alum Hydrox 30 ML ORAL.SUSP PO (02:39)
--- NOTE | 2024-08-26 02:40 | PC.NURSE ---
Pt c/o chest tightness and pain along with heartburn, tiger text to Dr. Borjas, EKG ordered and done, vitals stable, one time dose of Maalox ordered and administered. Will continue to monitor.
[2024-08-26] MEDS: Piperacillin Sodium/Tazobactam 3.375 GM in 0.9 % Sodium Chloride 50 ML IV ×4 (05:49→23:56)
[2024-08-26 07:52] VITALS: BP 114/66; PULSE 85; RESP 14; TEMP 37.1; O2SAT 95
[2024-08-26] MEDS: 0.9 % Sodium Chloride Flush 3 ML SYRINGE IVFLUSH ×2 (08:11→17:10)
[2024-08-26] MEDS: traMADoL HCL 50 MG TABLET 25 MG PO ×2 (08:11→23:56)
[2024-08-26] MEDS: Enoxaparin Sodium 40 MG/0.4 ML SYRINGE SUBCUT (08:11)
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
--- NOTE | 2024-08-26 14:16 | MHC.CM.PN ---
per rounds pt not ready for dc diagnosis remains pending
[2024-08-26] MEDS: Omeprazole 20 MG CAPSULE.DR PO (14:19)
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
[2024-08-26 15:55] VITALS: BP 130/84; PULSE 85; RESP 12; TEMP 37.1; O2SAT 95
[2024-08-26] MEDS: guaiFENesin DM 200/20/10 ML 10 ML SYRUP PO ×2 (17:10→21:05)
[2024-08-26 19:08] VITALS: BP 106/52; PULSE 98; RESP 16; TEMP 37.2; O2SAT 95
[2024-08-26 20:04] LABS: TS Negative Control Passed; TS Panel A 0; TS Panel B 0; TS Positive Control Passed; TSpotTB Negative (Negative)
[2024-08-26] MEDS: Melatonin 3 MG TABLET 6 MG PO (23:57)
[2024-08-27] MEDS: 0.9 % Sodium Chloride Flush 3 ML SYRINGE IVFLUSH ×4 (00:49→23:55)
[2024-08-27 03:26] VITALS: BP 109/70; PULSE 83; RESP 14; TEMP 36.4; O2SAT 95
[2024-08-27] MEDS: traMADoL HCL 50 MG TABLET 25 MG PO ×4 (03:54→20:58)
[2024-08-27] MEDS: Piperacillin Sodium/Tazobactam 3.375 GM in 0.9 % Sodium Chloride 50 ML IV ×4 (05:48→23:55)
[2024-08-27] MEDS: Omeprazole 20 MG CAPSULE.DR PO (05:49)
[2024-08-27 07:43] VITALS: BP 112/60; PULSE 86; RESP 16; TEMP 36.3; O2SAT 95
[2024-08-27] MEDS: Enoxaparin Sodium 40 MG/0.4 ML SYRINGE SUBCUT (07:56)
[2024-08-27] MEDS: guaiFENesin DM 200/20/10 ML 10 ML SYRUP PO ×4 (07:56→20:59)
[2024-08-27 08:24] LABS: HIV AB/AG Nonreactive (Nonreactive); HIV Num 1 0.08 S/CO (0.00-0.99)
[2024-08-27] MEDS: Acetaminophen 325 MG TABLET 650 MG PO ×2 (09:29→20:59)
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
[2024-08-27 15:25] VITALS: BP 119/75; PULSE 83; RESP 16; TEMP 36; O2SAT 96
[2024-08-27 19:16] VITALS: BP 112/77; PULSE 80; RESP 14; TEMP 37.1; O2SAT 96
[2024-08-27] MEDS: Zolpidem Tartrate 5 MG TABLET PO (22:14)
[2024-08-27] MEDS: Calcium Carbonate 750 MG TAB.CHEW PO (22:14)
[2024-08-28 03:12] VITALS: BP 119/73; PULSE 81; RESP 16; TEMP 37.1; O2SAT 96
[2024-08-28] MEDS: Omeprazole 20 MG CAPSULE.DR PO (05:41)
[2024-08-28] MEDS: Piperacillin Sodium/Tazobactam 3.375 GM in 0.9 % Sodium Chloride 50 ML IV (05:41)
[2024-08-28 07:53] VITALS: BP 113/68; PULSE 76; RESP 16; TEMP 36.4; O2SAT 94
[2024-08-28] MEDS: Enoxaparin Sodium 40 MG/0.4 ML SYRINGE SUBCUT (08:25)
[2024-08-28] MEDS: Amoxicillin/Potassium Clav 875 MG TABLET PO (08:25)
[2024-08-28] MEDS: 0.9 % Sodium Chloride Flush 3 ML SYRINGE IVFLUSH (08:25)
[2024-08-28] MEDS: guaiFENesin DM 200/20/10 ML 10 ML SYRUP PO (08:25)
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
--- NOTE | 2024-08-28 09:56 | MHC.CM.PN ---
Addendum entered by Caterina Griffin 08/28/24 12:31: NEW PT PCP APPT SCHEDULED FOR PT AT [facility] [place] WITH HARSHA HOFFMANN FOR 09/09/24 AT 0915 HOURS PT IS AWARE HE WILL NEED TO CALL HIS INSURANCE COMPANY PRIOR TO THAT DATE TO CHANGE HIS PLAN TO AN [facility], [facility] OR [facility] PT PROVIDED WITH THE NUMBER TO CALL AND UNDERSTANDS IF THE POLICY IS NOT CHANGED, HE WILL NOT BE ABLE TO SEE THIS PROVIDER HE REPORTS BEING AGREEABLE TO POLICY CHANGE AND FOLLOW UP PLAN Original Note: PT TO DC HOME TODAY WITH NO SERVICES
[2024-08-29 11:43] LABS: Strep Pneumo Ag urine Not Detected (Not Detected)
[2024-08-30 02:29] LABS: Legionella Ag Urine Not Detected (Not Detected)
== END 2024-08-28 12:57 | disposition home or self-care (01) | DRG 139 ==
LOC: HO.ED 17:04 → HO.EDOVER 17:35 → HO.S3 19:15
PROVIDERS: Physician Assistant Medical; Admitting Provider Internal Medicine; Emergency Provider Emergency Medicine; Visit Provider Hospitalist
DX: J18.9 Pneumonia, unspecified organism (principal); J98.4 Other disorders of lung; Z87.891 Personal history of nicotine dependence
CPT/HCPCS: 36415; 71046; 71275; 80048; 80076; 83605; 83690; 84484; 85025; 85652; 86140; 86403; 86481; 87040; 87070; 87116; 87118; 87205; 87206; 87389; 87449; 87640; 87641; 87899; 93005; 99285; J1650; J2060; J2543; Q9967

== ENCOUNTER → 2024-08-24 09:43 | Outpatient (BNV) | payer OTHER, SELFPAY | PROVIDERS: Emergency Provider Emergency Medicine; Visit Provider Internal Medicine Cardiovascular Disease | DX: R07.9 Chest pain, unspecified (principal) | CPT/HCPCS: 93010 ==

== ENCOUNTER 2024-08-24 17:31 | Outpatient (BNV) | payer OTHER, SELFPAY | END 2024-08-26 02:27 | PROVIDERS: Admitting Provider Internal Medicine; Emergency Provider Emergency Medicine; Visit Provider Internal Medicine Cardiovascular Disease | DX: R07.9 Chest pain, unspecified (principal) | CPT/HCPCS: 93010 ==

== ENCOUNTER → 2024-08-24 17:31 | Outpatient (BNV) | payer OTHER, SELFPAY | PROVIDERS: Admitting Provider Internal Medicine; Emergency Provider Emergency Medicine; Visit Provider Internal Medicine | DX: J98.4 Other disorders of lung (principal); Z87.891 Personal history of nicotine dependence | CPT/HCPCS: 99222; 99232; 99239 ==

== ENCOUNTER → 2024-08-24 17:31 | Outpatient (BNV) | payer OTHER, SELFPAY | PROVIDERS: Admitting Provider Internal Medicine; Emergency Provider Emergency Medicine; Visit Provider Internal Medicine | DX: J98.4 Other disorders of lung (principal) | CPT/HCPCS: 99222 ==

== ENCOUNTER 2024-10-17 20:26 | Emergency (ER) | payer OTHER, SELFPAY ==
--- NOTE | 2024-10-17 | ECG_ITS ---
Test Reason : cp Blood Pressure : / mmHG Vent. Rate : 107 BPM Atrial Rate : 107 BPM P-R Int : 118 ms QRS Dur : 084 ms QT Int : 336 ms P-R-T Axes : 057 045 042 degrees QTc Int : 448 ms Sinus tachycardia Moderate voltage criteria for LVH, may be normal variant ( Sokolow-Rosado , Jose Antonio product ) Borderline ECG When compared with ECG of 26-AUG-2024 02:27, No significant change was found Referred By: Generic ED Physician Electronically Signed By:NICOLE CALDEORN MD
--- NOTE | ~2024-10-17 | XR_ITS ---
EXAMINATION: XR CHEST CLINICAL INFORMATION: cough COMPARISON: CT angiogram of the chest 08/24/2024. Chest radiograph 08/24/2024. TECHNIQUE: 2 views of the chest were obtained. FINDINGS: Airspace opacity is present in the right lower pulmonary lobe this region demonstrates a sharp lateral margin which may represent atelectasis of the major fissure. No effusions or pneumothoraces noted. They density is present in the right upper lung zone may correspond to residual density related to the previous cavitary lesion in this region noted on the 08/24/2024 examination. Cardiac silhouette is normal in size. Punctate densities project over the right upper abdominal quadrant could relate to prior cholecystectomy. Findings are unchanged compared to 08/24/2024. No suspicious skeletal abnormalities. XR/XR chest 2V IMPRESSION: *Right lower lobe atelectasis and/or consolidation. Findings are new compared to 08/24/2024. *The previously noted right upper lobe cavitary lesion (chest radiograph 08/24/2024) is no longer visualized. Vague density is present in this region on the current examination and may represent residual scarring related to this prior lesion. Electronically signed by: Chan Omalley MD 10/18/2024 12:16 AM [facility]
[2024-10-17 20:33] VITALS: BP 115/79; PULSE 96; RESP 18; TEMP 36.4; O2SAT 93; BMI 20.6
--- NOTE | 2024-10-17 20:46 | MHC.EDTECH ---
Patient brought into triage area,EKG taken per order and signed by provider,labs and sars/flu/rsv obtained and sent to lab
[2024-10-17 20:51] LABS: MANUAL DIFF FLAG NO
[2024-10-17 20:53] LABS: Basophils Percent Auto 0.3 % (0-2); Eosinophils Absolute Auto 0.2 X10*3/uL (0.0-0.4); Eosinophils Percent Auto 1.2 % (0-4); Hematocrit 42.4 % (42.0-52.0); Hemoglobin 14.7 g/dl (14.0-18.0); Imm Gran Abs Auto 0.05 X10*3/uL (0.00-0.03); Imm Gran Pct Auto 0.4 % (0.0-0.4); Lymphocytes Absolute Auto 2.1 X10*3/uL (1.2-4.9); Lymphocytes Percent Auto 16.1 % (20-40); Mean Corpuscular HGB Conc 34.7 g/dl (31.0-36.0); Mean Corpuscular Hemoglobin 31.4 pg (27.0-33.0); Mean Corpuscular Volume 90.6 fL (80.0-98.0); Mean Platelet Volume 8.8 fL (9.4-12.4); Monocytes Absolute Auto 0.8 X10*3/uL (0.1-1.2); Monocytes Percent Auto 5.8 % (2-11); Neutrophils Absolute Auto 9.9 x10*3/uL (2.0-8.3); Neutrophils Percent Auto 76.2 % (45-73); Platelet Count 493 X10*3/uL (160-400); Red Blood Count 4.68 X10*6/uL (4.60-5.80); Red Cell Distribution Width 12.1 % (11.0-16.0); White Blood Count 12.9 X10*3/uL (4.8-10.8)
--- NOTE | 2024-10-17 21:04 | PC.NURSE ---
pt to ED from home. multiple complaints - chest pain x2-3 days non radiating. Pt gestures to his whole abd and chest and says it hurts all over . He is vague about when the symptoms started but reports at least a couple of days. pt also states that he has been coughing up blood for months every morning and today there was a large blood clot that he coughed up. Pt states that he has had SOB for awhile - when asked to elaborate he says for about 30 minutes whenever he goes outside in the cold. He denies N/V/D. He endorses some small amount of alcohol use this evening. Denies drug use. Sinus tach on tele. labs and ekg done. 20g iv left ac. waiting for ed provider
[2024-10-17 21:06] LABS: Alanine Aminotransferase 21 U/L (0-40); Albumin Level 4.2 g/dL (3.5-5.0); Alkaline Phosphatase 66 U/L (39-117); Anion Gap 15 (12-20); Aspartate Amino Transferase 29 U/L (5-37); Bilirubin Total 0.3 mg/dL (0.0-1.0); Blood Urea Nitrogen 9 mg/dL (9-16); Calcium 8.7 mg/dL (8.4-10.2); Carbon Dioxide 23 mmol/L (22-29); Chloride 110 mmol/L (96-108); Creatinine Clr Calc Pharmacy 93.2; Estimated Glomerular Filt Rate > 60; Glucose Random 105 mg/dL (60-115); Potassium 3.5 mmol/L (3.3-5.1); Sodium 144 mmol/L (135-145); Total Protein 7.8 g/dL (6.5-8.0)
[2024-10-17 21:13] LABS: Troponin-I High Sensitivity 4.4 ng/L (<3.5-35.0)
[2024-10-17 21:28] LABS: Influenza A PCR NEGATIVE (Negative); Influenza B PCR NEGATIVE (Negative); Resp Syncy Virus RNA Qual PCR NEGATIVE (Negative); SARS COV2 PCR INHOUSE NEGATIVE (Negative)
[2024-10-17 21:51] VITALS: BP 123/88; PULSE 83; RESP 18; TEMP 37.1; O2SAT 96
[2024-10-17 22:59] LABS: Troponin-I High Sensitivity 3.9 ng/L (<3.5-35.0)
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
[2024-10-17 23:20] VITALS: BP 128/93; PULSE 104; RESP 16; TEMP 37.9; O2SAT 95
[2024-10-17 23:39] LABS: D Dimer High Sensitivity < 150 NG/ML
[2024-10-17] MEDS: cefTRIAXone sodium 2 GM VIAL IVPUSH (23:41)
[2024-10-17] MEDS: Ketorolac Tromethamine 15 MG/ML VIAL IVPUSH (23:43)
[2024-10-17] MEDS: 0.9 % Sodium Chloride 1,000 ML 999 ML IV (23:43)
[2024-10-17] MEDS: Acetaminophen 325 MG TABLET 975 MG PO (23:43)
--- NOTE | 2024-10-18 00:08 | PC.NURSE ---
this rn assumed care of pt @ 2300 sepsis alert at called @ 2318 per [place] weight based IVF not required due to stable BPs. propellant charge zone assembler made aware pt medicated according to mar
[2024-10-18 00:23] VITALS: BP 127/88; PULSE 94; RESP 24; TEMP 37.2; O2SAT 95
[2024-10-18 00:23] LABS: Influenza A PCR NEGATIVE (Negative); Influenza B PCR NEGATIVE (Negative); Resp Syncy Virus RNA Qual PCR NEGATIVE (Negative); SARS COV2 PCR INHOUSE NEGATIVE (Negative)
[2024-10-18] MEDS: Amoxicillin/Potassium Clav 875 MG TABLET PO (00:35)
[2024-10-18 00:52] VITALS: BP 125/89; PULSE 100; RESP 16; TEMP 36.9; O2SAT 96
[2024-10-18 01:02] VITALS: BP 137/90; PULSE 96; RESP 20; TEMP 37.3; O2SAT 96
[2024-10-18] MEDS: Ondansetron ODT 4 MG TAB.RAPDIS TRANSLINGU (01:02)
--- NOTE | 2024-10-18 01:16 | PC.NURSE ---
pt placed up for discharge iv fluids completed @ 0048 pt states ride has arrived and needs to leave. this rn made hemodialysis charge nurse aware per hemodialysis charge nurse pt okay to discharge as long as two bp documented post ivf completion. VS documented
[2024-10-18 01:19] VITALS: BP 137/90; PULSE 96; RESP 20; TEMP 37.3; O2SAT 96
== END 2024-10-18 01:21 | disposition home or self-care (01) ==
PROVIDERS: Physician Assistant Medical; Emergency Provider Emergency Medicine
DX: J18.9 Pneumonia, unspecified organism (principal); Z03.818 Encounter for observation for suspected exposure to other biological agents ruled out; R05.9 Cough, unspecified; R07.9 Chest pain, unspecified; Z87.891 Personal history of nicotine dependence
CPT/HCPCS: 0241U; 36415; 71046; 80053; 83605; 84484; 85025; 85379; 87040; 93005; 96361; 96374; 96375; 99284; 99285; J0696; J1885

== ENCOUNTER → 2024-10-17 20:32 | Outpatient (BNV) | payer OTHER, SELFPAY | PROVIDERS: Emergency Provider Emergency Medicine; Visit Provider Internal Medicine Cardiovascular Disease | DX: R07.9 Chest pain, unspecified (principal) | CPT/HCPCS: 93010 ==

== ENCOUNTER 2024-10-26 17:23 | Inpatient (IN) | payer OTHER, SELFPAY ==
[2024-10-26] VITALS (20 sets, daily range): BP systolic 121–150; BP diastolic 71–104; PULSE 100–132; RESP 20–37; TEMP 36.9–38.4; O2SAT 94–99; BMI 22.0
--- NOTE | 2024-10-26 | ECG_ITS ---
Test Reason : TACHYCARDIA Blood Pressure : / mmHG Vent. Rate : 124 BPM Atrial Rate : 124 BPM P-R Int : 112 ms QRS Dur : 080 ms QT Int : 290 ms P-R-T Axes : 000 138 138 degrees QTc Int : 416 ms Suspect limb leads reversal Sinus tachycardia Right axis deviation Abnormal ECG When compared with ECG of 17-OCT-2024 20:32, QRS axis Shifted right Please repeat after fixing the leads. Referred By: Generic ED Physician Electronically Signed By:Jeramie [place]
--- NOTE | ~2024-10-26 | XR_ITS ---
EXAMINATION: XR CHEST CLINICAL INFORMATION: pna/lobar colapse COMPARISON: None available. TECHNIQUE: 2 views of the chest were obtained. FINDINGS: The cardiac, hilar, and mediastinal contours are normal. Redemonstration of right lower lobar collapse. No change in this finding. There is a suprahilar oval mass in the right lung measuring approximately 3.1 x 2.4 cm. The left lung appears clear. No definite left effusion. Cannot exclude right effusion. No pneumothorax. There is no focal osseous or soft tissue abnormality. XR/XR chest 2V IMPRESSION: 1. Persistent right lower lobar collapse. 2. Oval masslike opacity right upper lobe region measuring 3.1 x 2.4 cm. Electronically signed by: Christiano Guardado MD 10/29/2024 09:19 AM [facility]
--- NOTE | ~2024-10-26 | CT_ITS ---
EXAMINATION: CT ANGIOGRAM OF THE CHEST WITH AND WITHOUT CONTRAST (CT PULMONARY ANGIOGRAM FOR PE) CLINICAL INFORMATION: hemoptysis COMPARISON: CTPA 08/24/2024 TECHNIQUE: Prior to contrast administration, noncontrast localization images were obtained. Subsequently, multidetector volumetric imaging was performed from the thoracic inlet to below the diaphragms following the administration of 65 mL Omnipaque 350 intravenous contrast. No contrast reaction reported. Sagittal, coronal, and MIP oblique sagittal reformatted images were obtained on the CT workstation, uploaded to PACS, and reviewed. Total exam dose-length product 264 mGy-cm FINDINGS: QUALITY OF STUDY/CONTRAST BOLUS: Satisfactory. PULMONARY ARTERIES: No central or segmental pulmonary emboli. THORACIC AORTA: No aneurysm or dissection. LUNG: The previously cavitary lesion in the right upper lobe is now solid measuring 2.4 x 2 cm. Collapse of the right lower lobe. Endobronchial material filling the right lower lobe bronchus. PLEURA: No pleural effusion or pneumothorax. MEDIASTINUM: The heart is normal in size. Subcarinal lymph node has increased in size now measuring 3.6 x 6.62 m, and exerting mass effect on the esophagus and left main stem bronchus. Progressive mediastinal and hilar lymphadenopathy, greater on the right. CHEST WALL/AXILLA: No axillary or internal mammary lymphadenopathy. OSSEOUS STRUCTURES: No acute or suspicious osseous abnormality. UPPER ABDOMEN: Unremarkable. No reflux of contrast into the hepatic veins to suggest elevated right heart pressures. CT/CT angio chest PE protocol IMPRESSION: 1. No pulmonary embolus. 2. Collapse of the right lower lobe with endobronchial material filling the right lower lobe bronchus. Correlate for aspiration, although an endobronchial tumor could have a similar appearance. 3. Progressive mediastinal and hilar lymphadenopathy. 4. The previously cavitary lesion in the right upper lobe is now solid measuring 2.4 x 2 cm. VTE: negative. Electronically signed by: Davis Varghese MD 10/26/2024 08:49 PM [facility]
--- NOTE | ~2024-10-26 | XR_ITS ---
EXAMINATION: XR CHEST CLINICAL INFORMATION: hemoptysis COMPARISON: CTA chest August 24, 2024, chest radiograph October 17, 2024 TECHNIQUE: Frontal view of the chest was obtained. FINDINGS: The previously noted cavitary right upper lobe lesion is not well visualized on this study, and appears replaced by a vague density similar to prior exam.] For lobe atelectasis. No pleural effusion. The heart is normal in size. No pneumothorax. XR/XR chest 1V IMPRESSION: The previously noted cavitary right upper lobe lesion is not well visualized on this study, and appears replaced by a vague density similar to prior exam. Electronically signed by: Davis Vargehse MD 10/26/2024 07:50 PM EST
--- NOTE | ~2024-10-26 | CT_ITS ---
EXAM: CT NECK SOFT TISSUE WITH IV CONTRAST COMPARISON: CT cervical spine from 07/13/2023. INDICATION: Right neck mass TECHNIQUE: Axial CT imaging of the soft tissues of the neck was acquired following uneventful intravenous administration of 60 mL of Omnipaque 350. All CT exams at this location are performed using dose optimization techniques as appropriate to a performed exam including at least one of the following: * Automated exposure control * Adjustment of the mA and/or kV according to patient size (this includes techniques or standardized protocols for targeted exams where dose is matched to indication / reason for exam; i/e/ extremities or head) * Use of iterative reconstructive technique DLP: 364 mGy-cm FINDINGS: Enlarged lymph nodes are seen in the bilateral level 2 anterior cervical chains. Largest lymph node on the right measures 1.9 x 1.6 cm, previously measuring 1.5 x 1.1 cm. Largest lymph node on the left measures 2.0 x 1.6 cm, previously measuring 1.9 x 1.2 cm. The skin and subcutaneous fat of the neck is normal in appearance. The musculature of the neck is symmetric. The vasculature of the neck demonstrates normal course and caliber. The salivary glands and thyroid gland are normal in appearance. The mucosa of the aerodigestive tract is normal in appearance. The imaged intracranial structures are unremarkable. The skull base foramina are symmetric. The osseous structures are unremarkable. There is a subpleural mass in the right upper lobe measuring 2.4 x 1.[address] cm[address] refer to CT of the chest performed on the same day for further details CT/CT soft tissue neck w IV con IMPRESSION: 1. Enlarged lymph nodes in the bilateral level 2 anterior cervical chains. Largest lymph node on the right measures 1.9 x 1.6 cm, previously measuring 1.5 x 1.1 cm. Largest lymph node on the left measures 2.0 x 1.6 cm, previously measuring 1.9 x 1.2 cm. 2. Subpleural mass in the right upper lobe measuring 2.4 x 1.9 cm. Electronically signed by: Davidson Brady MD 10/26/2024 09:19 PM [facility]
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
[2024-10-26] MEDS: 0.9 % Sodium Chloride 1,800 ML 1800 ML IV (18:26)
[2024-10-26] MEDS: Piperacillin Sodium/Tazobactam 3.375 GM in 0.9 % Sodium Chloride 50 ML IV (18:27)
[2024-10-26] MEDS: Acetaminophen 1,000 MG/100 ML PIGGYBACK 400 MG IV (18:34)
[2024-10-26 18:35] LABS: MANUAL DIFF FLAG NO
[2024-10-26 18:37] LABS: Basophils Percent Auto 0.2 % (0-2); Eosinophils Percent Auto 0.1 % (0-4); Hematocrit 41.7 % (42.0-52.0); Hemoglobin 14.6 g/dl (14.0-18.0); Imm Gran Abs Auto 0.15 X10*3/uL (0.00-0.03); Imm Gran Pct Auto 0.7 % (0.0-0.4); Lymphocytes Absolute Auto 0.8 X10*3/uL (1.2-4.9); Lymphocytes Percent Auto 3.3 % (20-40); Mean Corpuscular Hemoglobin 31.4 pg (27.0-33.0); Mean Corpuscular Volume 89.7 fL (80.0-98.0); Mean Platelet Volume 8.6 fL (9.4-12.4); Monocytes Absolute Auto 1.5 X10*3/uL (0.1-1.2); Monocytes Percent Auto 6.6 % (2-11); Neutrophils Percent Auto 89.1 % (45-73); Platelet Count 472 X10*3/uL (160-400); Red Blood Count 4.65 X10*6/uL (4.60-5.80); Red Cell Distribution Width 12.5 % (11.0-16.0); White Blood Count 22.4 X10*3/uL (4.8-10.8)
[2024-10-26 18:48] LABS: INTERNATIONAL NORM RATIO 1.3 (0.9-1.1); Prothrombin Time 15.2 SEC (10.9-12.4)
[2024-10-26 18:51] LABS: Alanine Aminotransferase 15 U/L (0-40); Alkaline Phosphatase 83 U/L (39-117); Anion Gap 11 (12-20); Aspartate Amino Transferase 26 U/L (5-37); Bilirubin Total 0.8 mg/dL (0.0-1.0); Blood Urea Nitrogen 8 mg/dL (9-16); Carbon Dioxide 24 mmol/L (22-29); Chloride 103 mmol/L (96-108); Creatinine Clr Calc Pharmacy 100.8; Estimated Glomerular Filt Rate > 60; Glucose Random 115 mg/dL (60-115); Potassium 4.4 mmol/L (3.3-5.1); Sodium 134 mmol/L (135-145); Total Protein 7.9 g/dL (6.5-8.0)
[2024-10-26 19:07] LABS: IDNOW Serial# 58CA691E; Strep A Nucleic Acid Positive (Negative)
[2024-10-26 19:14] LABS: Influenza A PCR NEGATIVE (Negative); Influenza B PCR NEGATIVE (Negative); Resp Syncy Virus RNA Qual PCR NEGATIVE (Negative); SARS COV2 PCR INHOUSE NEGATIVE (Negative)
[2024-10-26] MEDS: vancomycin HCL 1,500 MG in 0.9 % Sodium Chloride 500 ML 333.33 MG IV (19:28)
[2024-10-26] MEDS: iohexoL 350 MG/ML 100 ML INFUS..BTL IV (19:33)
--- NOTE | 2024-10-26 19:35 | PC.NURSE ---
Patient returned from radiology for imaging. Vancomycin hung and infusing as ordered. Patient is coughing regularly, tachycardic 110s-120s on grain receiver. Sepsis protocol in place. Sepsis alert signs hung at bedside. Care ongoing.
[2024-10-26 20:22] LABS: Appearance Urine Clear; Color Urine Yellow; Glucose Urine UA Negative (Negative); Leukocyte Esterase Urine Negative (Negative); Nitrite Urine Negative (Negative); Specific Gravity - Urine >= 1.030 (1.005-1.025); Urine Blood Negative (Negative); Urine Ketones Negative (Negative); Urine Protein Negative (Neg-Trace)
[2024-10-26 20:25] LABS: Bacteria Urine None Seen (None Seen); Hyaline Casts Urine 0-2 /LPF (0-2); RBC Urine 0-2 /HPF (0-2); Squamous Epithelial Cell Urine 0-2 /HPF (0-2); WBC Urine 0-5 /HPF (0-5)
[2024-10-26] MEDS: Ketorolac Tromethamine 30 MG/ML VIAL IVPUSH (21:47)
--- NOTE | 2024-10-26 21:59 | PC.NURSE ---
LEONEL Olivera at bedside for evaluation. Plan for admission. Oxygen flowing at 4 LPM via nasal cannula. Remains tachycardic on monitor. Alert & oriented.
--- NOTE | 2024-10-26 22:15 | PHA.MEDREC ---
Addendum entered by Dave Goldsmith RPh 10/26/24 22:17: Reviewed by [facility]. Original Note: Pharmacy Consult ? Medication Reconciliation Pharmacy has completed the medication reconciliation. Patient states he isn't taking any medications. took off Amoxicillin-Clavulanate 875-125 mg, last filled 10/18/24 for 14 days.
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
[2024-10-26 22:33] LABS: Procalcitonin 0.13 ng/mL
[2024-10-26] MEDS: Melatonin 3 MG TABLET 6 MG PO (23:00)
--- NOTE | 2024-10-26 23:02 | PHA.PROG ---
Admission Date/Time: October 26, 2024 22:22 Indication: Respiratory Weight in k kg Serum Creatinine - Last 168 Hours 10/26/24 18:25 Creatinine 0.81 Estimated CrCl and GFR - Last 168 Hours 10/26/24 18:25 Estim Creat Clear Calc 100.8 Estimated GFR > 60 Vancomycin Loading Dose: 1500 Current Vancomycin Dosing Regimen: 750mg q8h Vancomycin Monitoring using AUC goal of 400 - 600 range with trough as surrogate marker: 571, predicted trough 18.7 Date and Time for next Vancomycin Level to be drawn: 10/27 @ 1700 Pharmacist Comments on Vancomycin Plan: Vancomycin dosing will take advantage of [employer] as a clinical decision support tool that uses Bayesian modeling to calculate individual patient's pharmacokinetic parameters and forecast the patient's drug concentration time course with the target goal AUC 24 range of 400 - 600 mg/L/hr.
--- NOTE | 2024-10-26 23:53 | PC.NURSE ---
Patient called assistance to bedside. Sitting upright, coughing up multiple clots of blood. Spitting clots into emesis bag. LEONEL Benoit notified, who notified . Dr. Rodriguez came to bedside to evaluate and speak with the patient. Plan for admission to med/telemetry.
[2024-10-27] VITALS (8 sets, daily range): BP systolic 90–138; BP diastolic 58–85; PULSE 87–120; RESP 16–20; TEMP 36.5–38.1; O2SAT 91–100; BMI 21.3
[2024-10-27] MEDS: Piperacillin Sodium/Tazobactam 3.375 GM in 0.9 % Sodium Chloride 50 ML IV ×3 (00:17→11:15)
[2024-10-27] MEDS: 0.9 % Sodium Chloride Flush 3 ML SYRINGE IVFLUSH ×4 (00:17→21:55)
--- NOTE | 2024-10-27 01:37 | PC.NURSE ---
Patient requesting medication for persistent cough. Dr. Rodriguez aware and ordering Robitussion-Codeine to help with cough and discomfort. Report given to Nya AGUILAR. Nya aware of request & incoming medication orders.
[2024-10-27] MEDS: guaiFEN/Codeine SF 200/20/10ML 10 ML LIQUID 5 ML PO ×2 (03:01→08:43)
[2024-10-27] MEDS: vancomycin HCL 750 MG in 0.9 % Sodium Chloride 250 ML 265 MG IV ×2 (03:01→11:14)
[2024-10-27] MEDS: Ketorolac Tromethamine 30 MG/ML VIAL IVPUSH ×2 (05:55→14:09)
[2024-10-27 06:27] LABS: Hematocrit 34.6 % (42.0-52.0); Mean Corpuscular HGB Conc 34.7 g/dl (31.0-36.0); Mean Corpuscular Hemoglobin 31.4 pg (27.0-33.0); Mean Corpuscular Volume 90.6 fL (80.0-98.0); Platelet Count 407 X10*3/uL (160-400); Red Blood Count 3.82 X10*6/uL (4.60-5.80); Red Cell Distribution Width 12.7 % (11.0-16.0); White Blood Count 20.4 X10*3/uL (4.8-10.8)
[2024-10-27 06:43] LABS: Anion Gap 12 (12-20); Blood Urea Nitrogen 10 mg/dL (9-16); Calcium 8.2 mg/dL (8.4-10.2); Carbon Dioxide 21 mmol/L (22-29); Chloride 108 mmol/L (96-108); Creatinine Clr Calc Pharmacy 106.6; Estimated Glomerular Filt Rate > 60; Glucose Random 109 mg/dL (60-115); Sodium 137 mmol/L (135-145)
[2024-10-27] MEDS: Acetaminophen 325 MG TABLET 650 MG PO ×2 (08:44→23:54)
[2024-10-27 09:25] LABS: Lactate Dehydrogenase 244 U/L (118-273)
--- NOTE | 2024-10-27 10:28 | MHC.CM.PN ---
Pt said he is staying with his cousin, he does not have a PCP, an appt. was made for him aftert last hosp stay in Aug., but he did not go. He does not have home health services or DME. CM will follow up with pt. to determine if he has transport home at [place], as pt. falling asleep at time of assessment. CM to follow for DC needs.
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
--- NOTE | 2024-10-27 12:16 | P.PNIM_ITS ---
Subjective Subjective Date of Service: 10/27/24 Interval History: c/o cough, dyspnea febrile to 100.5 overnight c/o chills, sweats Review of Systems Review of Systems: Yes all other systems are reviewed and are negative Physical Exam 2 Vital Signs: Vital Signs: Last Vital Signs Temp 97.7 F 10/27/24 11:07 Pulse 87 10/27/24 11:07 Resp 20 10/27/24 11:07 BP 110/65 10/27/24 11:07 Pulse Ox 98 10/27/24 11:07 O2 Del Method Nasal Cannula 10/27/24 11:07 O2 Flow Rate 4 10/27/24 11:07 Oxygen Flow Rate 4 10/26/24 21:51 BMI result Body Mass Index 21.3 Gen: in no acute distress HEENT: sclera anicteric, moist mucus membranes Neck: tender anterior cervical lymph nodes bilaterally Lungs: dimimished R side Heart: regular rate and rhythm, no murmurs Abd: soft, non-tender, non-distended Ext: no edema Skin: warm/well-perfused Neuro: alert and oriented x3, no focal findings Psych: appropriate affect Objective Data Active Medications Acetaminophen (Acetaminophen 325 Mg Tablet) 650 mg PO Q6H PRN PRN Reason: Pain, Mild 1-3,fever,headache Last Admin: 10/27/24 08:44 Dose: 650 mg Documented By: VILMA Calcium Carbonate (Calcium Carbonate 750 Mg Tab.Chew) 750 mg PO Q4H PRN PRN Reason: Heartburn Guaifenesin/Codeine Phosphate (Guaifen/Codeine Sf 200/20/10ml 10 Ml Liquid) 5 ml PO Q6H PRN PRN Reason: Cough Last Admin: 10/27/24 08:43 Dose: 5 ml Documented By: VILMA Piperacillin Sod/Tazobactam (Sod 3.375 gm/ Sodium Chloride) 50 mls @ 100 mls/hr IV Q6H [facility] Last Infusion: 10/27/24 11:47 Dose: Infused Documented By: VILMA Vancomycin HCl 750 mg/ Sodium (Chloride) 265 mls @ 265 mls/hr IV Q8H [facility] Last Admin: 10/27/24 11:14 Dose: 265 mls/hr Documented By: VILMA Influenza Virus Vaccine (Flu Vacc [id number](6mos Up)/Pf 0.5 Ml Syringe) 0.5 ml IM .ONCE ONE Stop: 10/30/24 08:26 Ketorolac Tromethamine (Ketorolac Tromethamine 30 Mg/Ml Vial) 30 mg IVPUSH Q6H PRN PRN Reason: Pain, Moderate(Pain Scale 4-6) Stop: 10/31/24 22:21 Last Admin: 10/27/24 05:55 Dose: 30 mg Documented By: ERROL Magnesium Hydroxide (Milk Of Magnesia 30 Ml Oral.Susp) 30 ml PO DAILY PRN PRN Reason: Constipation Melatonin (Melatonin 3 Mg Tablet) 6 mg PO BEDTIME PRN PRN Reason: Insomnia Last Admin: 10/26/24 23:00 Dose: 6 mg Documented By: MARTINEZ Ondansetron HCl (Ondansetron Hcl 4 Mg/2 Ml Vial) 4 mg IVPUSH Q8H PRN PRN Reason: Nausea and Vomiting Pharmacy Consult (Consult Rx Vancomycin Dosing) 1 each MISCELLANE DAILY PRN PRN Reason: Consult order Sodium Chloride (0.9 % Sodium Chloride Flush 3 Ml Syringe) [facility] Last Admin: 10/27/24 08:44 Dose: 3 ml Documented By: VILMA Labs 10/27/24 06:04 10/27/24 06:04 Labs: Laboratory Results - last 24 hr 10/26/24 10/26/24 10/26/24 18:25 18:29 18:53 MCV 89.7 MCH 31.4 MCHC 35.0 RDW 12.5 Plt Count 472 H MPV 8.6 L Immature Gran % (Auto) 0.7 H Neut % (Auto) 89.1 H Lymph % (Auto) 3.3 L [place] % (Auto) 6.6 Eos % (Auto) 0.1 Baso % (Auto) 0.2 Lymph # (Auto) 0.8 L [place] # (Auto) 1.5 H Eos # (Auto) 0.0 Baso # (Auto) 0.0 Abs Immat Gran (auto) 0.15 H Absolute Neuts (auto) 20.0 H Absolute Nucleated RBC 0.000 Nucleated RBC % (auto) 0.0 PT 15.2 H INR 1.3 H Anion Gap 11 L Estim Creat Clear Calc 100.8 Estimated GFR > 60 Random Glucose 115 Lactic Acid Calcium 9.0 Total Bilirubin 0.8 AST 26 ALT 15 Alkaline Phosphatase 83 Lactate Dehydrogenase Troponin I High Sens 15.0 D Total Protein 7.9 Albumin 4.0 Procalcitonin 0.13 Urine Color Urine Appearance Urine pH Ur Specific [place] Urine Protein Urine Glucose (UA) Urine Ketones Urine Blood Urine Nitrite Ur Leukocyte Esterase Urine RBC Urine WBC Ur Squamous Epith Cells Urine Bacteria Hyaline Casts Influenza Type A (PCR) NEGATIVE Influenza Type B (PCR) NEGATIVE RSV RNA Qual (PCR) NEGATIVE SARS-CoV-2 RNA (RT-PCR) NEGATIVE S. pyogenes GrpA YULI Positive A 10/26/24 10/26/24 10/27/24 19:01 20:16 06:04 MCV 90.6 MCH 31.4 MCHC 34.7 RDW 12.7 Plt Count 407 H MPV 9.0 L Immature Gran % (Auto) Neut % (Auto) Lymph % (Auto) [place] % (Auto) Eos % (Auto) Baso % (Auto) Lymph # (Auto) [place] # (Auto) Eos # (Auto) Baso # (Auto) Abs Immat Gran (auto) Absolute Neuts (auto) Absolute Nucleated RBC 0.000 Nucleated RBC % (auto) 0.0 PT INR Anion Gap 12 Estim Creat Clear Calc 106.6 Estimated GFR > 60 Random Glucose 109 Lactic Acid 1.0 Calcium 8.2 L D Total Bilirubin AST ALT Alkaline Phosphatase Lactate Dehydrogenase 244 Troponin I High Sens Total Protein Albumin Procalcitonin Urine Color Yellow Urine Appearance Clear Urine pH 6.0 Ur Specific [place] >= 1.030 H Urine Protein Negative Urine Glucose (UA) Negative Urine Ketones Negative Urine Blood Negative Urine Nitrite Negative Ur Leukocyte Esterase Negative Urine RBC 0-2 Urine WBC 0-5 Ur Squamous Epith Cells 0-2 Urine Bacteria None Seen Hyaline Casts 0-2 Influenza Type A (PCR) Influenza Type B (PCR) RSV RNA Qual (PCR) SARS-CoV-2 RNA (RT-PCR) S. pyogenes GrpA YULI Assessment and Plan (1) Pulmonary abscess: Status: Acute Plan d2, 44yo M with recent pulmonary MAC with RUL cavitating mass, 15 pack-year smoking hx, presenting with fever, cough, and hemoptysis, along with neck pain and sore throat. Recently treated with amoxicillin-clavulalante for RUL cavitary pneumonia, started re-treatment after recent ED visit 10/17/24. Admitted for hypoxia and RLL collapse/obstruction AHRF and sepsis due to pneumonia, RLL collapse/obstruction - Pulm consulted, ordered CPT + NAC - ID consult pending, continue vancomycin + pip-mika - HIV pending though was negative in Aug 2024 - follow routine + AFB blood cultures - hx MRSA positivity, remains on anti-MRSA coverage - wean O2 as tolerated Group A strep pharyngitis - on ABX as above VTE ppx - SCDs, hold enoxaparin given hemoptysis dispo - eventual home In my clinical judgment, the patient requires continued inpatient hospitalization for the following reasons: hypoxia, IV ABX Total time managing care of this patient today: 45 minutes. Quality Stroke Does the patient have a stroke diagnosis?: No VTE Prior VTE?: No VTE Risk Level:: Medical - moderate - high VTE Device Contraindication: N/A - Device Ordered VTE Drug Contraindication: Treatment Not Indicated
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
[2024-10-27] MEDS: cefTRIAXone sodium 2 GM VIAL IVPUSH (14:08)
[2024-10-27 17:37] LABS: Vancomycin Trough 12.7 mcg/mL (10.0-20.0)
[2024-10-27] MEDS: Acetylcysteine 10 % 400 MG/4 ML VIAL INHALE (19:35)
[2024-10-27] MEDS: Albuterol Sulfate (0.083%) 2.5 MG/3 ML VIAL.NEB INHALE (19:35)
[2024-10-27] MEDS: Melatonin 3 MG TABLET 6 MG PO (23:54)
[2024-10-28] VITALS (10 sets, daily range): BP systolic 91–119; BP diastolic 60–81; PULSE 94–111; RESP 16–20; TEMP 36.7–37.8; O2SAT 96–100
[2024-10-28] MEDS: guaiFEN/Codeine SF 200/20/10ML 10 ML LIQUID 5 ML PO ×4 (00:01→23:04)
--- NOTE | 2024-10-28 06:11 | PC.NURSE ---
Patient very upset in the evening about NPO status for tentative bronchoscopy as evidenced by swearing at staff when educated on diet after asking for food. Discussed plan with covering Dr. Rodriguez who gave verbal order during rounding on unit that pt could eat a pudding and some [id number] as pt requested, as long as NPO at midnight. Pt was agreeable to this plan, has been NPO since midnight. Febrile x1, MD made aware and prn tylenol given with +effect (see provider notification for full details). Plan of care continues.
[2024-10-28] MEDS: Ketorolac Tromethamine 30 MG/ML VIAL IVPUSH ×3 (06:43→19:45)
[2024-10-28 07:18] LABS: Hematocrit 34.5 % (42.0-52.0); Mean Corpuscular HGB Conc 34.8 g/dl (31.0-36.0); Mean Corpuscular Hemoglobin 31.5 pg (27.0-33.0); Mean Corpuscular Volume 90.6 fL (80.0-98.0); Mean Platelet Volume 8.9 fL (9.4-12.4); Platelet Count 421 X10*3/uL (160-400); Red Blood Count 3.81 X10*6/uL (4.60-5.80); Red Cell Distribution Width 12.5 % (11.0-16.0); White Blood Count 17.7 X10*3/uL (4.8-10.8)
[2024-10-28 07:44] LABS: Alanine Aminotransferase 9 U/L (0-40); Albumin Level 3.1 g/dL (3.5-5.0); Alkaline Phosphatase 65 U/L (39-117); Anion Gap 13 (12-20); Aspartate Amino Transferase 24 U/L (5-37); Bilirubin Total 0.6 mg/dL (0.0-1.0); Blood Urea Nitrogen 11 mg/dL (9-16); Calcium 8.4 mg/dL (8.4-10.2); Carbon Dioxide 23 mmol/L (22-29); Chloride 106 mmol/L (96-108); Creatinine Clr Calc Pharmacy 106.6; Estimated Glomerular Filt Rate > 60; Glucose Random 106 mg/dL (60-115); Potassium 3.6 mmol/L (3.3-5.1); Sodium 138 mmol/L (135-145); Total Protein 6.5 g/dL (6.5-8.0)
[2024-10-28] MEDS: Albuterol Sulfate (0.083%) 2.5 MG/3 ML VIAL.NEB INHALE ×2 (08:18→19:50)
[2024-10-28] MEDS: Acetylcysteine 10 % 400 MG/4 ML VIAL INHALE ×2 (08:18→19:50)
[2024-10-28 08:57] LABS: Procalcitonin 2.26 ng/mL
[2024-10-28] MEDS: 0.9 % Sodium Chloride Flush 3 ML SYRINGE IVFLUSH ×3 (09:54→19:50)
[2024-10-28] MEDS: Acetaminophen 325 MG TABLET 650 MG PO ×3 (10:01→23:05)
--- NOTE | 2024-10-28 12:28 | HO.PM.IMPN ---
Subjective Subjective Date of Service: 10/28/24 Interval History: coughing short of breath fever has resolved ongoing sore throat Review of Systems Review of Systems: Yes all other systems are reviewed and are negative Physical Exam Vital Signs: Vital Signs: Last Vital Signs Temp 98.9 F 10/28/24 11:01 Pulse 105 H 10/28/24 11:01 Resp 20 10/28/24 11:01 BP 97/62 10/28/24 11:01 Pulse Ox 96 10/28/24 11:01 O2 Del Method Room Air 10/28/24 11:01 O2 Flow Rate 4 10/28/24 07:13 Oxygen Flow Rate 4 10/26/24 21:51 BMI result Body Mass Index 21.3 Gen: in no acute distress HEENT: sclera anicteric, moist mucus membranes Neck: tender anterior cervical lymph nodes bilaterally Lungs: dimimished R side Heart: regular rate and rhythm, no murmurs Abd: soft, non-tender, non-distended Ext: no edema Skin: warm/well-perfused Neuro: alert and oriented x3, no focal findings Psych: appropriate affect Objective Data Active Medications Acetaminophen (Acetaminophen 325 Mg Tablet) 650 mg PO Q6H PRN PRN Reason: Pain, Mild 1-3,fever,headache Last Admin: 10/28/24 10:01 Dose: 650 mg Documented By: MARGRET Acetylcysteine (Acetylcysteine 10 % 400 Mg/4 Ml Vial) 400 mg [facility] Last Admin: 10/28/24 08:18 Dose: 400 mg Documented By: FIGUEROA Albuterol Sulfate (Albuterol Sulfate (0.083%) 2.5 Mg/3 Ml Vial.[facility]) 2.5 mg [facility] Last Admin: 10/28/24 08:18 Dose: 2.5 mg Documented By: FIGUEROA Calcium Carbonate (Calcium Carbonate 750 Mg Tab.Chew) 750 mg PO Q4H PRN PRN Reason: Heartburn Ceftriaxone Sodium (Ceftriaxone Sodium 2 Gm Vial) 2 gm IVPUSH Q24H [facility] Last Admin: 10/27/24 14:08 Dose: 2 gm Documented By: VILMA Guaifenesin/Codeine Phosphate (Guaifen/Codeine Sf 200/20/10ml 10 Ml Liquid) 5 ml PO Q6H PRN PRN Reason: Cough Last Admin: 10/28/24 10:01 Dose: 5 ml Documented By: MARGRET Influenza Virus Vaccine (Flu Vacc [id number](6mos Up)/Pf 0.5 Ml Syringe) 0.5 ml IM .ONCE ONE Stop: 10/30/24 08:26 Ketorolac Tromethamine (Ketorolac Tromethamine 30 Mg/Ml Vial) 30 mg IVPUSH Q6H PRN PRN Reason: Pain, Moderate(Pain Scale 4-6) Stop: 10/31/24 22:21 Last Admin: 10/28/24 06:43 Dose: 30 mg Documented By: LICO Magnesium Hydroxide (Milk Of Magnesia 30 Ml Oral.Susp) 30 ml PO DAILY PRN PRN Reason: Constipation Melatonin (Melatonin 3 Mg Tablet) 6 mg PO BEDTIME PRN PRN Reason: Insomnia Last Admin: 10/27/24 23:54 Dose: 6 mg Documented By: LICO Ondansetron HCl (Ondansetron Hcl 4 Mg/2 Ml Vial) 4 mg IVPUSH Q8H PRN PRN Reason: Nausea and Vomiting Sodium Chloride (0.9 % Sodium Chloride Flush 3 Ml Syringe) 3 ml IVFLUSH [facility] Last Admin: 10/28/24 09:54 Dose: 3 ml Documented By: MARGRET Labs 10/28/24 07:10 10/28/24 07:10 Labs: Laboratory Results - last 24 hr 10/27/24 10/28/24 17:13 07:10 MCV 90.6 MCH 31.5 MCHC 34.8 RDW 12.5 Plt Count 421 H MPV 8.9 L Absolute Nucleated RBC 0.000 Nucleated RBC % (auto) 0.0 Anion Gap 13 Estim Creat Clear Calc 106.6 Estimated GFR > 60 Random Glucose 106 Calcium 8.4 Total Bilirubin 0.6 AST 24 ALT 9 Alkaline Phosphatase 65 Total Protein 6.5 Albumin 3.1 L Procalcitonin 2.26 Vancomycin Trough 12.7 Microbiology Microbiology Results: Microbiology 10/27/24 23:52 Gram Stain - Final Sputum - Expectorated 10/26/24 18:25 Blood Culture - Preliminary Blood - Venous No growth after 24 hours. 10/26/24 18:24 Blood Culture - Preliminary Blood - Venous No growth after 24 hours. Assessment and Plan (1) Pulmonary abscess: Status: Acute Plan d3 for 44yo M with recent pulmonary BRIAN with RUL cavitating mass, 15 pack-year smoking hx, presenting with fever, cough, and hemoptysis, along with neck pain and sore throat. Recently treated with amoxicillin-clavulalante for RUL cavitary pneumonia, started re-treatment after recent ED visit 10/17/24. Admitted for hypoxia and RLL collapse/obstruction. Prior cavitary lesion is now solid. AHRF and sepsis due to pneumonia, RLL collapse/obstruction - Pulm consulted, ordered CPT + NAC. Repeat CXR tomorrow AM to see if bronchoscopy indicated. - ID consulted, changed vancomycin and piperacillin-tazobactam to ceftriaxone 10/27 - HIV pending though was negative in Aug 2024 - follow routine blood culture, trend PCT - wean O2 as tolerated Group A strep pharyngitis/lymphadenitis - covered by ceftriaxone as above VTE ppx - SCDs, hold enoxaparin given hemoptysis dispo - eventual home In my clinical judgment, the patient requires continued inpatient hospitalization for the following reasons: hypoxia, IV ABX, possible need for bronchoscopy Total time managing care of this patient today: 45 minutes. Quality Stroke Does the patient have a stroke diagnosis?: No VTE Prior VTE?: No VTE Risk Level:: Medical - moderate - high VTE Device Contraindication: N/A - Device Ordered VTE Drug Contraindication: Treatment Not Indicated
[2024-10-28] MEDS: cefTRIAXone sodium 2 GM VIAL IVPUSH (13:36)
[2024-10-28] MEDS: Melatonin 3 MG TABLET 6 MG PO (23:06)
[2024-10-29] VITALS (9 sets, daily range): BP systolic 101–121; BP diastolic 58–83; PULSE 86–113; RESP 16–20; TEMP 36.1–37.2; O2SAT 92–98
[2024-10-29] MEDS: Ketorolac Tromethamine 30 MG/ML VIAL IVPUSH ×2 (03:11→21:11)
[2024-10-29 06:16] LABS: Hematocrit 35.9 % (42.0-52.0); Hemoglobin 11.9 g/dl (14.0-18.0); Mean Corpuscular HGB Conc 33.1 g/dl (31.0-36.0); Mean Corpuscular Hemoglobin 30.6 pg (27.0-33.0); Mean Corpuscular Volume 92.3 fL (80.0-98.0); Mean Platelet Volume 9.3 fL (9.4-12.4); Platelet Count 466 X10*3/uL (160-400); Red Blood Count 3.89 X10*6/uL (4.60-5.80); Red Cell Distribution Width 12.6 % (11.0-16.0); White Blood Count 14.8 X10*3/uL (4.8-10.8)
[2024-10-29 06:32] LABS: Creatinine Clr Calc Pharmacy 109.6; Estimated Glomerular Filt Rate > 60
[2024-10-29] MEDS: Acetylcysteine 10 % 400 MG/4 ML VIAL INHALE ×2 (07:29→19:51)
[2024-10-29] MEDS: Albuterol Sulfate (0.083%) 2.5 MG/3 ML VIAL.NEB INHALE ×2 (07:29→19:51)
--- NOTE | 2024-10-29 08:15 | PC.RT ---
RT taught pt how to use flutter valve / acapella. Pt has good effort, with a strong, dry and non-productive cough. Instructed to use 10 times an hour. Will check in and assure use as scheduled TID.
[2024-10-29] MEDS: guaiFEN/Codeine SF 200/20/10ML 10 ML LIQUID 5 ML PO ×2 (12:17→21:10)
[2024-10-29] MEDS: 0.9 % Sodium Chloride Flush 3 ML SYRINGE IVFLUSH ×2 (12:31→14:20)
[2024-10-29] MEDS: oxyCODONE HCl Immed Release 5 MG TABLET 10 MG PO ×2 (12:46→21:14)
[2024-10-29 14:14] LABS: HIV AB/AG Nonreactive (Nonreactive); HIV Num 1 0.05 S/CO (0.00-0.99)
[2024-10-29] MEDS: cefTRIAXone sodium 2 GM VIAL IVPUSH (14:20)
--- NOTE | 2024-10-29 14:55 | P.PNPL_ITS ---
Subjective Subjective Date of Service: 10/29/24 Interval history: Reports improved dyspnea and cough. Though, still has small volume of hemoptysis. Objective Data Labs 10/29/24 05:48 10/29/24 05:48 Labs: Laboratory Results - last 24 hr 10/27/24 10/29/24 06:04 05:48 WBC 14.8 H RBC 3.89 L Hgb 11.9 L Hct 35.9 L MCV 92.3 MCH 30.6 MCHC 33.1 RDW 12.6 Plt Count 466 H MPV 9.3 L Absolute Nucleated RBC 0.000 Nucleated RBC % (auto) 0.0 Creatinine 0.72 Estim Creat Clear Calc 109.6 Estimated GFR > 60 HIV 1&2 Ab/P24 Ag 4thGn Nonreactive Microbiology Microbiology Results: Microbiology 10/27/24 23:52 Sputum - Expectorated Gram Stain - Final 10/27/24 23:52 Sputum - Expectorated Sputum Culture - Preliminary Culture in progress. 10/26/24 18:25 Blood - Venous Blood Culture - Preliminary No growth after 48 hours. 10/26/24 18:24 Blood - Venous Blood Culture - Preliminary No growth after 48 hours. Physical Exam 2 Vital Signs: Vital Signs: Last Vital Signs Temp 98.9 F 10/29/24 10:59 Pulse 113 H 10/29/24 10:59 Resp 20 10/29/24 10:59 BP 121/71 10/29/24 10:59 Pulse Ox 95 10/29/24 10:59 O2 Del Method Room Air 10/29/24 10:59 O2 Flow Rate 4 10/29/24 06:58 Oxygen Flow Rate 4 10/26/24 21:51 BMI result Body Mass Index 21.3 Const: General: no acute distress, alert and awake Eyes: Sclerae: sclerae normal EOM: EOMs intact bilaterally Neck: Neck: Yes no lymphadenopathy, Yes trachea midline and Yes supple Resp: Effort & Inspection: normal respiratory effort and no respiratory distress Auscultation: clear to auscultation bilaterally Cardio: Rate: tachycardic Rhythm: regular rhythm Heart sounds: no gallops, no murmurs and no rubs GI: Palpation (GI): Soft to palpation and Other GI palpation findings present ( Nontender) Auscultation: normal bowel sounds Extrem: General: Yes no pedal edema, No clubbing and No cyanosis Procedures Date of Service Date of Service: 10/29/24 Assessment and Plan Assessment and plan (1) Acute respiratory failure with hypoxia: Status: Acute (2) Pulmonary atelectasis: Status: Acute (3) Pulmonary abscess: Status: Acute Plan Impression: 42-year-old gentleman admitted with pneumonic in pharyngitis symptoms MSSA/strep. No significant changes in x-ray, but clinically improving. Recommendation: Agree with current antibiotic regimen. Would consider total off four-week of antibiotics. Will require outpatient pulmonary follow-up. Time Spent With Patient Time: Total time managing care of this patient today ____ minutes. Progress Note: Quality Stroke Does the patient have a stroke diagnosis?: No
--- NOTE | 2024-10-29 17:13 | HO.PM.IMPN ---
Subjective Subjective Date of Service: 10/29/24 Interval History: Notes overall improvement since admission. Appreciate pulmonary input Review of Systems Denies chest pain Denies shortness of breath Denies Nausea vomiting diarrhea Denies fever chills Physical Exam Vital Signs: Vital Signs: Last Vital Signs Temp 98.2 F 10/29/24 16:00 Pulse 102 H 10/29/24 16:00 Resp 19 10/29/24 16:00 BP 121/83 10/29/24 16:00 Pulse Ox 92 10/29/24 16:00 O2 Del Method Room Air 10/29/24 16:00 O2 Flow Rate 4 10/29/24 06:58 Oxygen Flow Rate 4 10/26/24 21:51 BMI result Body Mass Index 21.3 Const: Other: No acute distress Resp: Other: Diminished but clears no rales rhonchi or wheezing Cardio: Other: No S4; positive S1-S2; no S3 murmurs rubs or gallops GI: Other: Soft nontender nondistended normoactive bowel sounds Extrem: Other: No edema bilaterally Objective Data Active Medications Acetaminophen (Acetaminophen 325 Mg Tablet) 650 mg PO Q6H PRN PRN Reason: Pain, Mild 1-3,fever,headache Last Admin: 10/28/24 23:05 Dose: 650 mg Documented By: MAHAMED Acetylcysteine (Acetylcysteine 10 % 400 Mg/4 Ml Vial) 400 mg [facility] Last Admin: 10/29/24 07:29 Dose: 400 mg Documented By: RC Albuterol Sulfate (Albuterol Sulfate (0.083%) 2.5 Mg/3 Ml Vial.[facility]) 2.5 mg [facility] Last Admin: 10/29/24 07:29 Dose: 2.5 mg Documented By: RC Calcium Carbonate (Calcium Carbonate 750 Mg Tab.Chew) 750 mg PO Q4H PRN PRN Reason: Heartburn Ceftriaxone Sodium (Ceftriaxone Sodium 2 Gm Vial) 2 gm IVPUSH Q24H [facility] Last Admin: 10/29/24 14:20 Dose: 2 gm Documented By: ASHWINI Guaifenesin/Codeine Phosphate (Guaifen/Codeine Sf 200/20/10ml 10 Ml Liquid) 5 ml PO Q6H PRN PRN Reason: Cough Last Admin: 10/29/24 12:17 Dose: 5 ml Documented By: ASHWINI Influenza Virus Vaccine (Flu Vacc [id number](6mos Up)/Pf 0.5 Ml Syringe) 0.5 ml IM .ONCE ONE Stop: 10/30/24 08:26 Ketorolac Tromethamine (Ketorolac Tromethamine 30 Mg/Ml Vial) 30 mg IVPUSH Q6H PRN PRN Reason: Pain, Moderate(Pain Scale 4-6) Stop: 10/31/24 22:21 Last Admin: 10/29/24 03:11 Dose: 30 mg Documented By: MAHAMED Magnesium Hydroxide (Milk Of Magnesia 30 Ml Oral.Susp) 30 ml PO DAILY PRN PRN Reason: Constipation Melatonin (Melatonin 3 Mg Tablet) 6 mg PO BEDTIME PRN PRN Reason: Insomnia Last Admin: 10/28/24 23:06 Dose: 6 mg Documented By: MAHAMED Ondansetron HCl (Ondansetron Hcl 4 Mg/2 Ml Vial) 4 mg IVPUSH Q8H PRN PRN Reason: Nausea and Vomiting Oxycodone HCl (Oxycodone Hcl Immed Release 5 Mg Tablet) 10 mg PO Q4H PRN PRN Reason: Pain, Moderate(Pain Scale 4-6) Last Admin: 10/29/24 12:46 Dose: 10 mg Documented By: ASHWINI Sodium Chloride (0.9 % Sodium Chloride Flush 3 Ml Syringe) 3 ml IVFLUSH [facility] Last Admin: 10/29/24 14:20 Dose: 3 ml Documented By: ASHWINI Labs 10/29/24 05:48 10/29/24 05:48 Labs: Laboratory Results - last 24 hr 10/27/24 10/29/24 06:04 05:48 MCV 92.3 MCH 30.6 MCHC 33.1 RDW 12.6 Plt Count 466 H MPV 9.3 L Absolute Nucleated RBC 0.000 Nucleated RBC % (auto) 0.0 Estim Creat Clear Calc 109.6 Estimated GFR > 60 HIV 1&2 Ab/P24 Ag 4thGn Nonreactive Microbiology Microbiology Results: Microbiology 10/27/24 23:52 Gram Stain - Final Sputum - Expectorated Sputum Culture - Preliminary Culture in progress. 10/26/24 18:25 Blood Culture - Preliminary Blood - Venous No growth after 48 hours. 10/26/24 18:24 Blood Culture - Preliminary Blood - Venous No growth after 48 hours. Assessment and Plan (1) Acute respiratory failure with hypoxia: Status: Acute (2) Pneumonia: Status: Inactive Plan d3 for 44yo M with recent pulmonary BRIAN with RUL cavitating mass, 15 pack-year smoking hx, presenting with fever, cough, and hemoptysis, along with neck pain and sore throat. Recently treated with amoxicillin-clavulalante for RUL cavitary pneumonia, started re-treatment after recent ED visit 10/17/24. Admitted for hypoxia and RLL collapse/obstruction. Prior cavitary lesion is now solid. 1. Acute hypoxic respiratory failure/ pneumonia, RLL collapse/obstruction -chest x-ray without acute changes; pulmonary recommends no changes at this time -ceftriaxone 2 g IV daily (3 ) -as per ID; switch to Ceftin when appropriate 2.Group A strep pharyngitis/lymphadenitis - covered by ceftriaxone as above Pneumatics Full code Requires ongoing hospitalization for IV antibiotics to treat pneumonia Quality Stroke Does the patient have a stroke diagnosis?: No VTE Prior VTE?: No VTE Risk Level:: Medical - moderate - high VTE Device Contraindication: N/A - Device Ordered VTE Drug Contraindication: Treatment Not Indicated
[2024-10-29] MEDS: ondansetron HCL 4 MG/2 ML VIAL IVPUSH (21:10)
[2024-10-29] MEDS: Acetaminophen 325 MG TABLET 650 MG PO (21:10)
[2024-10-29] MEDS: Melatonin 3 MG TABLET 6 MG PO (21:19)
[2024-10-30] VITALS (8 sets, daily range): BP systolic 114–121; BP diastolic 64–85; PULSE 97–109; RESP 16–20; TEMP 36.3–37.7; O2SAT 94–96
[2024-10-30] MEDS: Calcium Carbonate 750 MG TAB.CHEW PO
[2024-10-30] MEDS: guaiFEN/Codeine SF 200/20/10ML 10 ML LIQUID 5 ML PO (05:54)
--- NOTE | 2024-10-30 06:00 | PC.NURSE ---
This RN administered IV toradol for pain scale of 4-6 despite his pain intensity rating an 8 out of 10. Patient stated that 10mg of oxycodone and the iv medication he received earlier worked well for him. After pain medication was administered, patient stated that both pain medications were effective.
[2024-10-30 06:45] LABS: MANUAL DIFF FLAG NO
[2024-10-30 07:05] LABS: Alanine Aminotransferase 33 U/L (0-40); Albumin Level 3.1 g/dL (3.5-5.0); Alkaline Phosphatase 80 U/L (39-117); Anion Gap 12 (12-20); Aspartate Amino Transferase 36 U/L (5-37); Bilirubin Total 0.2 mg/dL (0.0-1.0); Blood Urea Nitrogen 10 mg/dL (9-16); Calcium 8.6 mg/dL (8.4-10.2); Carbon Dioxide 24 mmol/L (22-29); Chloride 105 mmol/L (96-108); Estimated Glomerular Filt Rate > 60; Glucose Fasting 106 mg/dL (60-99); Potassium 3.9 mmol/L (3.3-5.1); Sodium 137 mmol/L (135-145); Total Protein 6.5 g/dL (6.5-8.0)
[2024-10-30 07:09] LABS: Basophils Percent Auto 0.3 % (0-2); Eosinophils Absolute Auto 0.4 X10*3/uL (0.0-0.4); Eosinophils Percent Auto 3.5 % (0-4); Hemoglobin 12.2 g/dl (14.0-18.0); Imm Gran Abs Auto 0.13 X10*3/uL (0.00-0.03); Imm Gran Pct Auto 1.1 % (0.0-0.4); Lymphocytes Absolute Auto 1.7 X10*3/uL (1.2-4.9); Lymphocytes Percent Auto 14.7 % (20-40); Mean Corpuscular HGB Conc 33.9 g/dl (31.0-36.0); Mean Corpuscular Volume 91.4 fL (80.0-98.0); Mean Platelet Volume 9.1 fL (9.4-12.4); Monocytes Absolute Auto 1.1 X10*3/uL (0.1-1.2); Monocytes Percent Auto 9.8 % (2-11); Neutrophils Absolute Auto 8.1 x10*3/uL (2.0-8.3); Neutrophils Percent Auto 70.6 % (45-73); Platelet Count 476 X10*3/uL (160-400); Red Blood Count 3.94 X10*6/uL (4.60-5.80); Red Cell Distribution Width 12.5 % (11.0-16.0); White Blood Count 11.5 X10*3/uL (4.8-10.8)
[2024-10-30] MEDS: Acetylcysteine 10 % 400 MG/4 ML VIAL INHALE ×2 (08:24→19:44)
[2024-10-30] MEDS: Albuterol Sulfate (0.083%) 2.5 MG/3 ML VIAL.NEB INHALE ×2 (08:27→19:44)
[2024-10-30] MEDS: oxyCODONE HCl Immed Release 5 MG TABLET 10 MG PO ×2 (11:31→20:48)
[2024-10-30] MEDS: Benzonatate 100 MG CAPSULE 200 MG PO ×2 (11:31→20:48)
--- NOTE | 2024-10-30 13:08 | MHC.CM.PN ---
EMR REVIEWED, PT W/ASP PNA W/SEPSIS, PT REMAINS ON IV ABX, NO PLAN FOR DC AT THIS TIME, CM WILL CONT TO FOLLOW DC NEEDS.
[2024-10-30] MEDS: cefTRIAXone sodium 2 GM VIAL IVPUSH (14:57)
--- NOTE | 2024-10-30 16:02 | P.PNIM_ITS ---
Subjective Subjective Date of Service: 10/30/24 Interval History: Continues to improve; now with productive cough Review of Systems Denies chest pain Denies shortness of breath Denies Nausea vomiting diarrhea Denies fever chills Physical Exam 2 Vital Signs: Vital Signs: Last Vital Signs Temp 99.8 F 10/30/24 15:32 Pulse 101 H 10/30/24 15:32 Resp 20 10/30/24 15:32 BP 118/85 10/30/24 15:32 Pulse Ox 94 10/30/24 15:32 O2 Del Method Room Air 10/30/24 15:32 O2 Flow Rate 4 10/29/24 06:58 Oxygen Flow Rate 4 10/26/24 21:51 BMI result Body Mass Index 21.3 Const: Other: No acute distress Resp: Other: Improved aeration at bases. Continues with scattered expiratory wheezes and rhonchi Cardio: Other: No S4; positive S1-S2; no S3 murmurs rubs or gallops GI: Other: Soft nontender nondistended normoactive bowel sounds Extrem: Other: No edema bilaterally Objective Data Active Medications Acetaminophen (Acetaminophen 325 Mg Tablet) 650 mg PO Q6H PRN PRN Reason: Pain, Mild 1-3,fever,headache Last Admin: 10/29/24 21:10 Dose: 650 mg Documented By: ERROL Acetylcysteine (Acetylcysteine 10 % 400 Mg/4 Ml Vial) 400 mg [facility] Last Admin: 10/30/24 08:24 Dose: 400 mg Documented By: RUSSELL Albuterol Sulfate (Albuterol Sulfate (0.083%) 2.5 Mg/[address]) 2.5 mg [facility] Last Admin: 10/30/24 08:27 Dose: 2.5 mg Documented By: RUSSELL Benzonatate (Benzonatate 100 Mg Capsule) 200 mg PO TID PRN PRN Reason: Cough Last Admin: 10/30/24 11:31 Dose: 200 mg Documented By: SCOTTIE Calcium Carbonate (Calcium Carbonate 750 Mg Tab.Chew) 750 mg PO Q4H PRN PRN Reason: Heartburn Last Admin: 10/30/24 00:00 Dose: 750 mg Documented By: ERROL Ceftriaxone Sodium (Ceftriaxone Sodium 2 Gm Vial) 2 gm IVPUSH Q24H [facility] Last Admin: 10/30/24 14:57 Dose: 2 gm Documented By: SCOTTIE Guaifenesin/Codeine Phosphate (Guaifen/Codeine Sf 200/20/10ml 10 Ml Liquid) 5 ml PO Q6H PRN PRN Reason: Cough Last Admin: 10/30/24 05:54 Dose: 5 ml Documented By: ERROL Ketorolac Tromethamine (Ketorolac Tromethamine 30 Mg/Ml Vial) 30 mg IVPUSH Q6H PRN PRN Reason: Pain, Moderate(Pain Scale 4-6) Stop: 10/31/24 22:21 Last Admin: 10/29/24 21:11 Dose: 30 mg Documented By: ERROL Magnesium Hydroxide (Milk Of Magnesia 30 Ml Oral.Susp) 30 ml PO DAILY PRN PRN Reason: Constipation Melatonin (Melatonin 3 Mg Tablet) 6 mg PO BEDTIME PRN PRN Reason: Insomnia Last Admin: 10/29/24 21:19 Dose: 6 mg Documented By: ERROL Ondansetron HCl (Ondansetron Hcl 4 Mg/2 Ml Vial) 4 mg IVPUSH Q8H PRN PRN Reason: Nausea and Vomiting Last Admin: 10/29/24 21:10 Dose: 4 mg Documented By: ERROL Oxycodone HCl (Oxycodone Hcl Immed Release 5 Mg Tablet) 10 mg PO Q4H PRN PRN Reason: Pain, Moderate(Pain Scale 4-6) Last Admin: 10/30/24 11:31 Dose: 10 mg Documented By: SCOTTIE Sodium Chloride (0.9 % Sodium Chloride Flush 3 Ml Syringe) 3 ml IVFLUSH QSHIFT [facility] Last Admin: 10/30/24 11:35 Dose: Not Given Documented By: SCOTTIE Non-Admin Reason: Previously Administered Labs 10/30/24 06:37 10/30/24 06:37 Labs: Laboratory Results - last 24 hr 10/30/24 06:37 MCV 91.4 MCH 31.0 MCHC 33.9 RDW 12.5 Plt Count 476 H MPV 9.1 L Immature Gran % (Auto) 1.1 H Neut % (Auto) 70.6 Lymph % (Auto) 14.7 L Faulkner % (Auto) 9.8 Eos % (Auto) 3.5 Baso % (Auto) 0.3 Lymph # (Auto) 1.7 Faulkner # (Auto) 1.1 Eos # (Auto) 0.4 Baso # (Auto) 0.0 Abs Immat Gran (auto) 0.13 H Absolute Neuts (auto) 8.1 Absolute Nucleated RBC 0.000 Nucleated RBC % (auto) 0.0 Anion Gap 12 Estim Creat Clear Calc 116.0 Estimated GFR > 60 Fasting Glucose 106 H Calcium 8.6 Total Bilirubin 0.2 AST 36 ALT 33 Alkaline Phosphatase 80 Total Protein 6.5 Albumin 3.1 L Microbiology Microbiology Results: Microbiology 10/27/24 23:52 Gram Stain - Final Sputum - Expectorated Sputum Culture - Final Assessment and Plan (1) Acute respiratory failure with hypoxia: Status: Acute (2) Aspiration pneumonia: Status: Acute Plan d3 for 44yo M with recent pulmonary BRIAN with RUL cavitating mass, 15 pack-year smoking hx, presenting with fever, cough, and hemoptysis, along with neck pain and sore throat. Recently treated with amoxicillin-clavulalante for RUL cavitary pneumonia, started re-treatment after recent ED visit 10/17/24. Admitted for hypoxia and RLL collapse/obstruction. Prior cavitary lesion is now solid. 1. Acute hypoxic respiratory failure/ pneumonia, RLL collapse/obstruction -ceftriaxone 2 g IV daily (4 ) -slowly improving -as per ID; switch to Ceftin when appropriate 2.Group A strep pharyngitis/lymphadenitis - covered by ceftriaxone as above Pneumatics Full code Requires ongoing hospitalization for IV antibiotics to treat pneumonia Quality Stroke Does the patient have a stroke diagnosis?: No VTE Prior VTE?: No VTE Risk Level:: Medical - moderate - high VTE Device Contraindication: N/A - Device Ordered VTE Drug Contraindication: Treatment Not Indicated
[2024-10-30] MEDS: Melatonin 3 MG TABLET 6 MG PO (20:48)
[2024-10-30] MEDS: 0.9 % Sodium Chloride Flush 3 ML SYRINGE IVFLUSH (20:52)
[2024-10-31 04:00] VITALS: BP 113/73; PULSE 94; RESP 17; TEMP 37; O2SAT 95
[2024-10-31] MEDS: oxyCODONE HCl Immed Release 5 MG TABLET 10 MG PO ×3 (04:39→13:35)
[2024-10-31 07:20] LABS: Creatinine Clr Calc Pharmacy 93.9; Estimated Glomerular Filt Rate > 60
[2024-10-31 08:00] VITALS: BP 106/71; PULSE 93; RESP 18; TEMP 36.4; O2SAT 97
[2024-10-31] MEDS: Benzonatate 100 MG CAPSULE 200 MG PO (08:24)
[2024-10-31] MEDS: 0.9 % Sodium Chloride Flush 3 ML SYRINGE IVFLUSH (08:25)
[2024-10-31] MEDS: Albuterol Sulfate (0.083%) 2.5 MG/3 ML VIAL.NEB INHALE (08:45)
[2024-10-31] MEDS: Acetylcysteine 10 % 400 MG/4 ML VIAL INHALE (08:46)
[2024-10-31 08:47] VITALS: PULSE 91; RESP 17; O2SAT 98
[2024-10-31 11:14] VITALS: BP 107/74; PULSE 98; RESP 18; TEMP 36.7; O2SAT 97
--- NOTE | 2024-10-31 13:24 | PM.DS ---
DS: Providers Provider Date of Service: 10/31/24 Date of admission: 10/26/24 22:22 Date of discharge: 10/31/24 Primary care physician: None Physician Consults: 10/26/24 22:47 Consult to Infectious Diseases Routine Consulting Provider: [facility] Reason for consultation: Recurrent pneumonia, previous MAC+ Consult to Pulmonology Routine Consulting Provider: [facility] Reason for consultation: ?Bronchoscopy tomorrow DS: Diagnosis Discharge Diagnosis (1) Acute respiratory failure with hypoxia: Status: Acute (2) Aspiration pneumonia: Status: Acute DS: Summary Hospital Course Hospital Course: 44-year-old male with a PMH significant for 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 Patient reports symptoms are so severe that he can barely walk a few steps without having to rest. Also complains of chest pain and tightness associated with cough and deep inspiration. Reports that his chest ?feels like a truck hit me?. Patient also has been experiencing swelling to the right side of his neck, sore throat, and difficulty swallowing. Reports having 5-6 episodes of vomiting a few nights ago while trying to sleep. Symptoms have significantly worsened since then. Patient has a complicated recent PMH where he was recently admitted to the hospital on 08/24/2024 and treated for right upper lobe lesion likely cavitary pneumonia. Had negative workup at that time for TB but sputum was positive for mycobacterium avium complex. Patient tested negative for HIV. Was seen by ID and discharged on 14 day course of Augmentin. Patient then re-presented to the hospital 9 days ago for similar symptoms and discharged on Augmentin times 14 days. Patient reports was compliant with all medications. ED Course In the ED pt was febrile up to 101.2, tachycardic up to 132, tachypneic up to 37, and hypertensive as high as 149/89, desatting to 86% on RA. Labs were significant for testing positive for strep, leukocytosis 22.4, and mild hyponatremia of 134, otherwise grossly unremarkable and baseline for patient. Negative for COVID, flu, RSV. UA negative for UTI. CXR showed previous cavitary right upper lobe lesion not well visualized and apparently replaced by vague density. Soft tissue neck CT found enlarged lymph nodes and subpleural mass in right upper lobe measuring 2.4 x 1.9 cm. Chest CTA negative for pulmonary embolus, but showed collapse of the right lower lobe with endobronchial material filling the right lower lobe bronchus concerning for aspiration vs endobronchial tumor. Also showed progressive mediastinal and hilar lymphadenopathy and previously cavitary lesion in RUL now solid. Pt was treated with IVF, acetaminophen, ketorolac, vancomycin, and Zosyn. Pt will be admitted to the hospital for treatment and further evaluation of acute hypoxic respiratory failure secondary to sepsis in the setting of strep throat versus aspiration pneumonia. Hospital Course Patient admitted to telemetry where monitor failed to demonstrate any acute dysrhythmias. Patient was seen in consultation by Infectious Disease who recommended IV ceftriaxone 2 g daily until proved/no O2 requirement then complete a 10 day course of Ceftin as outpatient. Patient was also seen in consultation by pulmonology who felt medical management was appropriate at this time. ID did not feel this was related to past MAC. He will be discharged home to clean it complete a 10 day course of Ceftin and follow up with PCP next available Time Attestation Discharge Coordination Time (in mins): 35 Quality: Safe Use of Opioids Does Pt have an Active Cancer Diagnosis on the Problem List?: No Quality: Stroke Does the patient have a stroke diagnosis?: No Physical Exam Vital Signs: Vital Signs: Last Vital Signs Temp 98.1 F 10/31/24 11:14 Pulse 98 10/31/24 11:14 Resp 18 10/31/24 11:14 BP 107/74 10/31/24 11:14 Pulse Ox 97 10/31/24 11:14 O2 Del Method Room Air 10/31/24 11:14 O2 Flow Rate 4 10/29/24 06:58 Oxygen Flow Rate 4 10/26/24 21:51 BMI result Body Mass Index 21.3 Const: Other: No acute distress Resp: Other: Improved aeration at bases. Continues with scattered expiratory wheezes and rhonchi Cardio: Other: No S4; positive S1-S2; no S3 murmurs rubs or gallops GI: Other: Soft nontender nondistended normoactive bowel sounds Extrem: Other: No edema bilaterally DS: Data Data Completed and Pending Labs on day of discharge: Laboratory Results - last 24 hr 10/31/24 06:48 Hold Purple Top SEE NOTE Creatinine 0.84 Estim Creat Clear Calc 93.9 Estimated GFR > 60 Preliminary micro results at discharge 10/26/24 18:25 Blood Culture - Preliminary Blood - Venous No growth after 48 hours. 10/26/24 18:24 Blood Culture - Preliminary Blood - Venous No growth after 48 hours. Discharge Plan Discharge Anticipated Discharge Date/Time: 10/31/24 13:18 Patient Disposition: Home, Self-Care Discharge Diagnosis: Aspiration pneumonia Referrals: Physician,None [Primary Care Provider] - 1 Week Discharge Medications: New benzonatate 100 mg Capsule 200 mg PO TID PRN (Reason: Cough) Qty: 30 1RF cefuroxime axetil 500 mg tablet 500 mg PO BID 10 Days Qty: 20 0RF oxycodone 10 mg tablet 10 mg PO Q6H PRN (Reason: pain) Qty: 20 0RF Rx Instructions: Partial Fill upon patient request. Discharge Orders: Discharge Order (Routine); Ordered 10/31/24 Ordered By: Papi Ramirez Diet: Advance to usual diet Activity on Discharge: As tolerated Stand Alone Forms: Patient Portal Discharge page Print Language: Cypriot Care Plan Goals: Complete a 10 day course of Ceftin 500 mg twice daily. Use Tessalon Perles 3 times a day as needed for cough. Oxycodone as needed for pain Health Concerns: You need to follow up with your PCP next available Plan of Treatment: Continue to use Acapella device at home Assessment: See discharge summary
[2024-10-31] MEDS: cefTRIAXone sodium 2 GM VIAL IVPUSH (13:34)
--- NOTE | 2024-10-31 13:41 | MHC.CM.PN ---
Pt has been medically cleared for DC, he will go home via private transport, plan is self care.
== END 2024-10-31 15:18 | disposition home or self-care (01) | DRG 720 ==
LOC: HO.ED 21:53 → HO.EDOVER 22:30 → HO.IMC 10-27 00:13
PROVIDERS: Family Medicine; Physician Assistant; Admitting Provider Student in an Organized Health Care Education/Training Program; Emergency Provider Emergency Medicine; Visit Provider Hospitalist
DX: A41.9 Sepsis, unspecified organism (principal); J96.01 Acute respiratory failure with hypoxia; J69.0 Pneumonitis due to inhalation of food and vomit; J98.19 Other pulmonary collapse; E87.1 Hypo-osmolality and hyponatremia; J02.0 Streptococcal pharyngitis; Z86.14 Personal history of Methicillin resistant Staphylococcus aureus infection; Z87.891 Personal history of nicotine dependence; Z79.899 Other long term (current) drug therapy
CPT/HCPCS: 0241U; 36415; 70491; 71045; 71046; 71275; 80048; 80053; 80202; 81001; 82565; 83605; 83615; 84145; 84484; 85025; 85027; 85610; 87040; 87070; 87116; 87205; 87389; 87651; 93005; 94640; 99285; J0131; J0696; J1885; J2405; J2543; J3370; J3371; Q9967

== ENCOUNTER → 2024-10-26 17:51 | Outpatient (BNV) | payer OTHER, SELFPAY | PROVIDERS: Admitting Provider Student in an Organized Health Care Education/Training Program; Emergency Provider Emergency Medicine; Visit Provider Internal Medicine Cardiovascular Disease | DX: R00.0 Tachycardia, unspecified (principal); R94.31 Abnormal electrocardiogram [ECG] [EKG] | CPT/HCPCS: 93010 ==

== ENCOUNTER 2024-10-26 22:22 | Outpatient (BNV) | payer OTHER, SELFPAY | END 2024-10-29 08:00 | PROVIDERS: Admitting Provider Student in an Organized Health Care Education/Training Program; Emergency Provider Emergency Medicine; Visit Provider Radiology Diagnostic Radiology | DX: J98.4 Other disorders of lung (principal) | CPT/HCPCS: 71046 ==

== ENCOUNTER → 2024-10-26 22:22 | Outpatient (BNV) | payer OTHER, SELFPAY | PROVIDERS: Admitting Provider Student in an Organized Health Care Education/Training Program; Emergency Provider Emergency Medicine; Visit Provider Internal Medicine | DX: J96.01 Acute respiratory failure with hypoxia (principal); J02.0 Streptococcal pharyngitis; J85.2 Abscess of lung without pneumonia | CPT/HCPCS: 99222 ==

== ENCOUNTER → 2024-10-26 22:22 | Outpatient (BNV) | payer OTHER, SELFPAY | PROVIDERS: Admitting Provider Student in an Organized Health Care Education/Training Program; Emergency Provider Emergency Medicine; Visit Provider Family Medicine | DX: J96.01 Acute respiratory failure with hypoxia (principal); J69.0 Pneumonitis due to inhalation of food and vomit | CPT/HCPCS: 99239 ==

== ENCOUNTER → 2024-10-26 22:22 | Outpatient (BNV) | payer OTHER, SELFPAY | PROVIDERS: Admitting Provider Student in an Organized Health Care Education/Training Program; Emergency Provider Emergency Medicine; Visit Provider Internal Medicine Pulmonary Disease | DX: J96.01 Acute respiratory failure with hypoxia (principal); J98.11 Atelectasis; J85.2 Abscess of lung without pneumonia | CPT/HCPCS: 99222; 99232 ==

== ENCOUNTER 2024-11-04 21:29 | Inpatient (IN) | payer OTHER, SELFPAY ==
[2024-11-04] VITALS (18 sets, daily range): BP systolic 107–157; BP diastolic 65–103; PULSE 80–120; RESP 13–30; TEMP 36.4–37.3; O2SAT 81–99; BMI 22.7
--- NOTE | 2024-11-04 | ECG_ITS ---
Test Reason : SOB Blood Pressure : / mmHG Vent. Rate : 085 BPM Atrial Rate : 085 BPM P-R Int : 136 ms QRS Dur : 084 ms QT Int : 380 ms P-R-T Axes : 053 032 031 degrees QTc Int : 452 ms Sinus rhythm with marked sinus arrhythmia Otherwise normal ECG When compared with ECG of 26-OCT-2024 17:51, QRS axis Shifted left Referred By: Generic ED Physician Electronically Signed By:NICOLE CALDERON MD
--- NOTE | ~2024-11-04 | XR_ITS ---
CLINICAL HISTORY: Intubated Right CVC placement 1 view chest x-ray Comparison: CT/SR - CT CHEST W IV CON - 11/22/24 16:[address] - CT CHEST W IV CON - 11/22/24 16:04 EST Findings: Near-complete opacification of the right hemithorax. Known small right-sided pneumothorax. Cardiomediastinal silhouette is partly obscured. No acute fracture. Known nonspecific metallic artifact in the lower right anterior chest wall. IMPRESSION: 1. Endotracheal tube tip is roughly 3 cm from the carinal bifurcation. 2. Right central line tip projects over the expected location of the superior vena cava. This document has been electronically signed by: Melissa Leung DO on 11/22/2024 20:58:05
--- NOTE | ~2024-11-04 | CT_ITS ---
CLINICAL HISTORY: Please Assess R Lung Pathology, ?Hemothorax CT CHEST WITH CONTRAST Comparison: CT/SR - CT CHEST W IV CON - 11/14/24 16:04 EST Findings: The heart size is normal. Normal caliber thoracic aorta. Again seen is a soft tissue density in the right mainstem bronchus extending into the bifurcation and distal trachea. Again seen is a soft tissue density splaying the davion measures 4.7 x 4.6 x 5.6 cm. A distinct fascial plane between the mediastinal mass and right mainstem bronchus is not seen. Redemonstration of aortopulmonary window lymphadenopathy that measures 2.9 x 2.6 cm. The thyroid gland is homogeneous. Redemonstration of a moderate to large right pleural effusion with multifocal compressive atelectatic changes throughout the right lung. There is active contrast extravasation posteriorly that appears with in the pleural space axial images 18- 40 series 3. Adjacent soft tissue densities are suggestive of a hematoma, axial images 31-46 series 3. There is a right-sided pneumothorax with a volume of roughly 71 mL. The visualized upper abdomen is unremarkable. No grossly destructive osseous lesion. IMPRESSION: 1. Active contrast extravasation in the right hemithorax appears to be within the pleural space is consistent with an active bleed. Likely adjacent hematoma formation in the mid to lower right hemithorax posteriorly. 2. Roughly 30 percent right-sided pneumothorax. 3. Additional findings as above. This document has been electronically signed by: Melissa Leung DO on 11/22/2024 17:22:26
--- NOTE | ~2024-11-04 | XR_ITS ---
CLINICAL HISTORY: sob 1 view chest x-ray Comparison: CR - XR CHEST 1V - 11/10/24 04:58 EST Findings: Consolidation within the right lower lung, slightly improved since the prior study. The left lung remains clear. The endotracheal tube and nasogastric tube has been removed. Heart size is normal. No acute fracture. IMPRESSION: Consolidation within the right lower lung with slight interval improvement. Soft tissue fullness within the subcarina and narrowing of the right mainstem bronchus without change. This document has been electronically signed by: Ashley Tolliver MD on 11/11/2024 16:21:43
--- NOTE | ~2024-11-04 | XR_ITS ---
CLINICAL HISTORY: hypoxemia 1 view chest x-ray Comparison: CR/SR - XR CHEST 1V - 11/09/24 08:48 EST Findings: Bibasilar patchy opacities, improved on the left and worsened on the right. Persistent small right layering effusion. No pneumothorax. ETT tip terminates 4cm above davion. Enteric tube courses below the diaphragm, tip not seen. Heart size is normal. No acute fracture. IMPRESSION: 1. ETT tip terminates 4cm above davion. 2. Bibasilar patchy opacities, improved on the left and worsened on the right. 3. Persistent small right layering effusion. This document has been electronically signed by: Riaz Dodson MD on 11/10/2024 06:09:31
--- NOTE | ~2024-11-04 | CT_ITS ---
CLINICAL HISTORY: infection, recent M. avium CT chest with contrast Comparison: Comparison is made to chest radiograph examination dated 11/04/2024 and prior report from CT angiography examination of the chest dated 10/26/2024. Findings: Normal heart,size. No significant pericardial effusion. No thoracic aorta aneurysm. The left lung is clear. There is right-sided volume loss with mild endoluminal irregularity near the proximal aspect of the right mainstem bronchus on axial image number 177 of series 5. The right mainstem bronchus appears obliterated distally. There appears to be a lobulated slightly low-attenuation density over the expected location of the subcarinal region, measuring up to 4.1 x 4.7 cm in maximum axial dimensions on image number 28 of series 3. There is low attenuation material throughout the right lower lobe with visualization of the superimposed pulmonary arterial vasculature in this region. Slightly higher attenuation material identified throughout the majority of the right upper lobe with minimal sparing of the right lung apex. A superimposed 2.5 cm low-attenuation area is identified of the posterior aspect of the right upper lobe on axial image number 16 of series 3. Mild ground-glass opacities are present within the right middle lobe. Limited view of the upper abdomen is normal. No acute fractures. Impression: 1. Mild endoluminal irregularity identified of the proximal aspect of the right mainstem bronchus with obliteration of the right mainstem bronchus more distally. There appears to be a slightly low-attenuation 4.1 x 4.7 cm density in the subcarinal region. These findings are concerning for tumor/malignancy until proven otherwise. Recommend bronchoscopy for further evaluation. 2. Right-sided volume loss present with rightward shift of the mediastinum. There is low-attenuation material diffusely throughout the right lower lobe which may represent sequela of pneumonia and/or postobstructive atelectasis. Slightly higher attenuation material is identified throughout the majority of the right upper lobe with minimal sparing of the right lung apex, suggesting atelectasis. There is a superimposed 2.5 cm low-attenuation density of the posterior aspect of the right upper lobe which may represent a focal area of pneumonia, a developing abscess, or tumor. 3. Mild ill-defined ground-glass opacities identified within the right middle lobe which may represent atelectasis and/or infectious/inflammatory infiltrates. Four. Clear left lung. This document has been electronically signed by: Lizandro Pulliam MD on 11/04/2024 23:41:42
--- NOTE | ~2024-11-04 | XR_ITS ---
EXAMINATION: XR CHEST CLINICAL INFORMATION: intubated COMPARISON: Chest 11/08/2024 TECHNIQUE: Frontal view of the chest was obtained. FINDINGS: There is interval expansion of the right lung with moderate opacity right lower lobe. Small underlying right pleural effusion is noted. The left lung is expanded and clear. There is no pneumothorax. Position of the endotracheal tube in the distal stomach, tip of endotracheal tube 3 cm above the davion are stable. Heart size and the great vessels are normal caliber. No bony abnormality seen. XR/XR chest 1V IMPRESSION: Stable lines and catheters. There is interval expansion of right lung with a right lower lobe consolidation with residual right pleural effusion is noted. Left lung is clear. Electronically signed by: Bertrand Segal MD 11/09/2024 09:24 AM [facility]
--- NOTE | ~2024-11-04 | CT_ITS ---
CLINICAL HISTORY: 44-year-old man with a right lung abscess on CT. Pulmonary service requests aspiration of the abscess. PROCEDURES: 1. Limited preprocedure CT of the chest. Permanent images saved in PACS. 2. CT-guided aspiration of the right lung abscess. 3. CT-guided right chest tube placement. 3. Limited post procedure CT of the chest. Permanent images saved in PACS. CLINICIANS: Jomar Polo PA-C Preprocedural imaging reviewed with Dr. Chavez MEDICATIONS: -Versed 1.5 mg, Fentanyl 75 mcg, and lidocaine 1% 10 mL SQ -Antibiotics: None -For additional details, please see nursing flowsheet. COMPLICATIONS: None ESTIMATED BLOOD LOSS: < 5 ml CONTRAST: None SPECIMENS: A sample of the lung abscess fluid and the pleural fluid was sent for analysis. MODERATE SEDATION TIME: 37 min PROCEDURE NOTE: The procedure, risks, benefits, and alternatives were carefully explained to the patient and written informed consent was obtained. The patient was placed prone on the CT table. A timeout was performed. A limited CT of the chest was performed to localize the peripheral right lung abscess and choose appropriate needle entry and trajectory. The patient was prepped and draped in usual sterile fashion. The skin and subcutaneous tissues were anesthetized with lidocaine. Under CT guidance, a 5 Divehi Yueh needle/catheter was advanced into the right lung fluid collection. 3 cc of thick bloody/purulent fluid was immediately aspirated. This was sent for microbiology. The needle was then removed. Next, a new 5 Divehi Yueh needle/catheter was advanced into the right pleural space under CT guidance. A 0.0035 J wire was inserted through the the trocar needle and coiled in the pleural space. The trocar needle was then removed over the wire. The tract was then serially dilated. Over the wire, an 8 fr all-purpose drainage catheter was advanced and coiled into the fluid collection under CT guidance. The wire was then removed. A sample of pleural fluid was sent for analysis. The catheter was secured to the skin with a 2-0 nylon suture. The catheter was then connected to a closed drainage system. No air leak was observed. A limited postprocedure CT was then obtained. The patient was stable after the procedure and was transferred to the post anesthesia care unit. The procedure was done under moderate sedation with a dedicated nurse for monitoring of vital signs. CT/CT drain lung RT Impression: 1) CT-guided aspiration of the right lung abscess. 2) CT guided right chest tube. This procedure was performed by Jomar Polo PA-C and supervised by Dr. Chavez. Electronically signed by: Christiano Guardado MD 11/19/2024 11:24 AM [facility] [place]
--- NOTE | ~2024-11-04 | XR_ITS ---
CLINICAL HISTORY: f up on post bronch ? ptrx 1 view chest x-ray Comparison: 11/06/2024 Findings: Portions of the exam are obscured by overlying material. Endotracheal tube is 4.2 cm above the davion. Overall appearance of the chest including near-complete opacification of the right hemithorax, is not significantly changed. IMPRESSION: 1. No significant change from prior study. This document has been electronically signed by: Jensen Sheth MD on 11/07/2024 06:34:55
--- NOTE | ~2024-11-04 | XR_ITS ---
CLINICAL HISTORY: Please Assess R L Pathology 1 view chest x-ray Comparison: 11/21/2024 03:43 AM EST: CR: XR CHEST 1V (02:43 AM ROD STRAIGHTENER) Findings: The right hemithorax is largely opacified and there is shift of the cardiomediastinal structures to the right indicating atelectasis. Effusion and pneumonia are not excluded. It is uncertain whether the lucency at the right lung apex represents a small amount of aerated lung versus a small pneumothorax. Right-sided chest tube has been removed. Heart size is normal. No acute fracture. IMPRESSION: 1. The right hemithorax is largely opacified and there is shift of the cardiomediastinal structures to the right indicating atelectasis. Effusion and pneumonia are not excluded. 2. Right-sided chest tube has been removed. 3. It is uncertain whether the lucency at the right lung apex represents a small amount of aerated lung versus a small pneumothorax. This document has been electronically signed by: Dustin Santana MD on 11/22/2024 11:55:53
--- NOTE | ~2024-11-04 | XR_ITS ---
CLINICAL HISTORY: chest pain sob 1 view chest x-ray. Comparison: CR/PA/SR - XR CHEST 2V - 10/29/24 08:17 EST Findings: There is right-sided volume loss with rightward deviation of the mediastinum and trachea. Ldmw-[id number] ill-defined opacities are identified throughout the right lung. No pneumothorax or significant pleural effusion identified. There is incomplete visualization of the right mainstem bronchus, possibly occluded. No focal consolidation visualized within the left lung. Heart size normal. Impression: 1. Right-sided volume loss present with rightward shift of the mediastinum and trachea. There are [id number]-my-llmcprzb ill-defined opacities throughout the right lung which may represent atelectasis given the volume loss. This is of uncertain etiology. The right mainstem bronchus is incompletely visualized on this exam. May consider contrast-enhanced chest CT examination for further evaluation. This document has been electronically signed by: Lizandro Pulliam MD on 11/04/2024 22:07:44
--- NOTE | ~2024-11-04 | XR_ITS ---
EXAMINATION: XR CHEST CLINICAL INFORMATION: s/p right lung abscess aspiration and chest tube COMPARISON: Numerous reason priors, most recently 11/17/2024. CT-guided right chest tube placement/abscess drainage 11/18/2024. TECHNIQUE: AP portable view of the chest was obtained. FINDINGS: A right superior pleural catheter has been placed, which enters posteriorly between the fourth and fifth ribs, with pigtail formed within the right apex. There is a small to moderate size right hydropneumothorax, with pleural separation measuring 2.7 cm in the apex. Atelectatic lung is noted involving the right upper lobe. Persistent mediastinal shift to the right. Left lung appears clear. No gross soft tissue or bony abnormalities. XR/XR chest 1V IMPRESSION: 1. Placement of a pleural catheter, with pigtail formed in the right apex. 2. Small moderate size right sided hydropneumothorax. 3. Persistent right mediastinal shift. Electronically signed by: Christiano Gaurdado MD 11/19/2024 11:13 AM [facility]
--- NOTE | ~2024-11-04 | XR_ITS ---
CLINICAL HISTORY: ogt 1 view chest x-ray Comparison: CR - XR CHEST 1V - 11/07/24 06:01 EST Findings: No pneumothorax. There is complete opacification of the right hemithorax with shift of the mediastinum rightward. No acute fracture. There is an enteric tube coursing into the stomach, tip not included on this study. IMPRESSION: 1. Enteric tube coursing into the stomach, tip not included on this study. 2. Complete opacification of the right hemithorax. This document has been electronically signed by: Souleymane Nino MD on 11/08/2024 01:51:29
--- NOTE | ~2024-11-04 | XR_ITS ---
EXAMINATION: XR CHEST CLINICAL INFORMATION: desaturation , lung tumor COMPARISON: CT chest 11/04/2024 TECHNIQUE: Frontal view of the chest was obtained. FINDINGS: There is complete opacification right hemithorax with ipsilateral mediastinal shift. The endotracheal tube is 8.7 cm above the davion. There is a right central venous catheter with its tip in mid SVC. Heart size and the great vessels are normal caliber. No gross bony abnormality seen. XR/XR chest 1V IMPRESSION: Complete opacification right hemithorax from a common is a pleural effusion and lung atelectasis. There is ipsilateral mediastinal shift. Position of endotracheal tube and right central venous catheter are stable. Electronically signed by: Bertrand Segal MD 11/06/2024 03:39 PM [facility]
--- NOTE | ~2024-11-04 | XR_ITS ---
EXAMINATION: XR CHEST CLINICAL INFORMATION: dyspnea COMPARISON: CT chest 11/14/2024. TECHNIQUE: AP portable view of the chest was obtained. FINDINGS: Since the prior exam, complete opacification of the right hemithorax has developed, with mediastinal shift to the right suggesting right lung collapse. Previously effusion was present, and is still likely present. There is abrupt cut off of the right mainstem bronchus. There is bowing of the trachea to the right. The cardiac silhouette and mediastinal contours are obscured on the right side. The left lung appears clear. There is no pneumothorax. There is no left effusion. No suspicious osseous or chest wall soft tissue abnormalities. XR/XR chest 1V IMPRESSION: No significant change in complete right hemithorax opacification with complete right lung collapse and associated effusion. Abrupt cut off of the right mainstem bronchus. Chest x-ray findings appear quite similar to the recent CT examination. Electronically signed by: Christiano Guardado MD 11/16/2024 09:36 AM [facility]
--- NOTE | ~2024-11-04 | CT_ITS ---
CLINICAL HISTORY: persistent hypoxia, lung mass CT chest with contrast Comparison: CT - CT CHEST W IV CON - 11/14/24 16:03 EST CR - XR CHEST 1V - 11/11/24 15:43 EST CR - XR CHEST 1V - 11/10/24 04:[address]/SR - CT CHEST W IV CON - 11/04/24 22:58 EST Findings: Interval development of complete opacification of the right lung; previously there are small portions of the right lung which remain aerated. Soft tissue attenuation material in the right mainstem bronchus which protrudes into the trachea, also seen on the prior study (series 6, image 39). There is fluid attenuation within the airways on the right is well. Atelectatic/consolidated right lung demonstrates fluid attenuation portion in the right upper lobe, measuring 2.3 x 2.9 x 2.6 cm, previously measuring 2.3 x 2.2 x 2.5 cm. Right lung is heterogeneous in attenuation with decreased enhancement; decreased enhancement is greater than on the prior study. Small right pleural effusion, greater than on the prior study. The mediastinum is shifted rightward due to atelectasis/volume loss on the right. The low attenuating lesion in the posterior mediastinum at the right aspect is again seen, although not as well delineated as on the prior study, currently measuring 4.9 x 4.6 x 5.0 cm, similar to the prior study. Interval development of a mild amount of ground-glass opacity in the left lung, predominantly in the left lower lobe. Unremarkable heart and vasculature. No pneumothorax. No left pleural effusion. No acute osseous or soft tissue abnormality. No osseous destruction of the right ribs. No acute pathology in the imaged portion of the upper abdomen. Impression: Interval development of complete opacification of the right lung which is likely a combination of atelectasis and pneumonia. Interval increase in size of the fluid attenuation lesion in the right upper lobe, currently measuring 2.9 cm, previously measuring 2.5 cm, likely indicating a lung abscess. Small right pleural effusion, increased. Lesion in the posterior mediastinum at the right aspect concerning for malignancy, measuring up to 5.0 cm, similar to the prior study. Secretions versus mass in the right mainstem bronchus. New ground-glass opacity in the left lung, likely infectious/inflammatory. This document has been electronically signed by: Dulce Thomas MD on 11/14/2024 17:21:43
--- NOTE | ~2024-11-04 | XR_ITS ---
CLINICAL HISTORY: hypoxia 1 view chest x-ray Comparison: CR/IL/SR - XR CHEST 1V - 11/19/24 09:33 EST Findings: Right apical chest tube is again identified. Increasing size of a right-sided pneumothorax now measuring at least 5.7 cm in size from the chest wall. The right lung appears collapsed along the right hilum and right basilar portion. Likely right pleural effusion as well. Continued rightward mediastinal shift with extensive volume loss of the right hemithorax. Numerous metallic wires are seen projected over the right upper chest. Left lung is clear. IMPRESSION: Increase in size of the right pneumothorax with right apical chest tube in place. Please see above for full details. This document has been electronically signed by: Selvin Mckeon MD on 11/21/2024 04:13:45
--- NOTE | ~2024-11-04 | XR_ITS ---
EXAMINATION: XR CHEST CLINICAL INFORMATION: re-assess effusion COMPARISON: Prior day's chest x-ray. CT chest 11/14/2024. TECHNIQUE: AP portable view of the chest was obtained. FINDINGS: There has been no significant interval change. Complete opacification of the right hemithorax is stable, with mediastinal shift to the right suggesting right lung collapse. Previously effusion was present, and is still likely present. There is abrupt cut off of the right mainstem bronchus. There is bowing of the trachea to the right. Left lung remains clear without effusion or pneumothorax. The cardiac silhouette and mediastinal contours are obscured on the right side. No acute soft tissue or bone abnormalities. XR/XR chest 1V IMPRESSION: No significant change. Electronically signed by: Christiano Guardado MD 11/17/2024 09:46 AM EST
--- NOTE | ~2024-11-04 | XR_ITS ---
CLINICAL HISTORY: ET tube placement Chest Radiograph Comparison: CR/SR - XR CHEST 1V - 11/06/24 15:[address]/SR - CT CHEST W IV CON - 11/04/24 22:58 EST CR - XR CHEST 1V - 11/04/24 21:38 EST CR/MO/SR - XR CHEST 2V - 10/29/24 08:[address]/SR - CT ANGIO CHEST PE PROTOCOL - 10/26/24 19:13 EST CR/SR - XR CHEST 1V - 10/26/24 17:56 EST Findings: The endotracheal tube terminates 2.6 cm above the davion. No cardiomegaly. The mediastinum is shifted rightward due to right hemithorax volume loss, similar to the prior study. No left pneumothorax. New lucency in the right upper lung zone; lung markings are not definitively visualized. The right lung is otherwise opacified, also present on the prior study. The left lung is clear. No pleural effusion. Normal upper abdomen. No acute fracture. Impression: New lucency in the right upper lung zone could be secondary to a small pneumothorax. Clearing of the lung parenchyma at the right lung apex is considered less likely. Attention on follow up is recommended. Otherwise opacified right lung secondary to pneumonia and atelectasis. This document has been electronically signed by: Dulce Thomas MD on 11/06/2024 20:30:39
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
[2024-11-04 22:02] LABS: MANUAL DIFF FLAG NO
[2024-11-04 22:07] LABS: Basophils Absolute Auto 0.1 X10*3/uL (0.0-0.2); Basophils Percent Auto 0.3 % (0-2); Eosinophils Absolute Auto 0.2 X10*3/uL (0.0-0.4); Eosinophils Percent Auto 1.2 % (0-4); Hematocrit 39.2 % (42.0-52.0); Hemoglobin 13.3 g/dl (14.0-18.0); Imm Gran Abs Auto 0.32 X10*3/uL (0.00-0.03); Imm Gran Pct Auto 2.1 % (0.0-0.4); Lymphocytes Absolute Auto 1.9 X10*3/uL (1.2-4.9); Lymphocytes Percent Auto 12.4 % (20-40); Mean Corpuscular HGB Conc 33.9 g/dl (31.0-36.0); Mean Corpuscular Hemoglobin 30.6 pg (27.0-33.0); Mean Corpuscular Volume 90.3 fL (80.0-98.0); Mean Platelet Volume 8.6 fL (9.4-12.4); Monocytes Absolute Auto 0.9 X10*3/uL (0.1-1.2); Monocytes Percent Auto 5.9 % (2-11); Neutrophils Absolute Auto 11.9 x10*3/uL (2.0-8.3); Neutrophils Percent Auto 78.1 % (45-73); Platelet Count 736 X10*3/uL (160-400); Red Blood Count 4.34 X10*6/uL (4.60-5.80); Red Cell Distribution Width 12.3 % (11.0-16.0); White Blood Count 15.3 X10*3/uL (4.8-10.8)
[2024-11-04] MEDS: 0.9 % Sodium Chloride 1,857 ML 1857 ML IV (22:14)
[2024-11-04 22:24] LABS: VBG Base Excess 3.7 mmol/L; VBG HCO3 28 mmol/L (22-26); VBG pCO2 44 mmHg; VBG pH 7.41 (7.32-7.43); VBG pO2 42 mmHg
[2024-11-04 22:29] LABS: Venous Blood Gas Refer to POC result
[2024-11-04] MEDS: cefTRIAXone sodium 2 GM VIAL IVPUSH (22:42)
[2024-11-04 22:45] LABS: Influenza A PCR NEGATIVE (Negative); Influenza B PCR NEGATIVE (Negative); Resp Syncy Virus RNA Qual PCR NEGATIVE (Negative); SARS COV2 PCR INHOUSE NEGATIVE (Negative)
[2024-11-04 22:46] LABS: Lactic Acid 1.6 mmol/L (0.5-2.0)
[2024-11-04 22:47] LABS: Alanine Aminotransferase 37 U/L (0-40); Albumin Level 3.7 g/dL (3.5-5.0); Alkaline Phosphatase 73 U/L (39-117); Anion Gap 14 (12-20); Aspartate Amino Transferase 40 U/L (5-37); Bilirubin Total 0.3 mg/dL (0.0-1.0); Blood Urea Nitrogen 5 mg/dL (9-16); Calcium 9.4 mg/dL (8.4-10.2); Carbon Dioxide 24 mmol/L (22-29); Chloride 106 mmol/L (96-108); Creatinine Clr Calc Pharmacy 121.3; Estimated Glomerular Filt Rate > 60; Glucose Random 120 mg/dL (60-115); Magnesium 2.2 mg/dL (1.6-2.6); Potassium 3.6 mmol/L (3.3-5.1); Sodium 140 mmol/L (135-145); Total Protein 8.3 g/dL (6.5-8.0)
[2024-11-04] MEDS: Morphine Sulfate 4 MG/ML CARTRIDGE IVPUSH (22:49)
[2024-11-04 22:54] LABS: Troponin-I High Sensitivity 21.1 ng/L (<3.5-35.0)
[2024-11-04] MEDS: iohexoL 350 MG/ML 100 ML INFUS..BTL 85 ML IV (23:07)
[2024-11-04] MEDS: Albuterol Sulfate 7.5 MG, Albuterol Sulfate (0.083%) 2.5 MG 10 MG INHALE (23:21)
[2024-11-05] VITALS (17 sets, daily range): BP systolic 106–153; BP diastolic 62–97; PULSE 67–110; RESP 16–27; TEMP 36.4–37; O2SAT 90–99; BMI 22.7
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
[2024-11-05] MEDS: methylPREDNISolone Sod Succ 125 MG/2 ML VIAL IVPUSH (00:15)
--- NOTE | 2024-11-05 00:27 | PC.NURSE ---
Called night pharmacy. Unable to remove additional ordered antibiotics due to lack of verification from pharmacy department. Provider (LEONEL Kemp) aware of this. Care ongoing by this RN.
[2024-11-05] MEDS: Acetaminophen 325 MG TABLET 650 MG PO ×2 (00:44→19:47)
[2024-11-05] MEDS: Benzonatate 100 MG CAPSULE PO ×2 (00:45→19:48)
[2024-11-05] MEDS: Piperacillin Sodium/Tazobactam 4.5 GM in 0.9 % Sodium Chloride 100 ML IV ×4 (00:46→18:35)
[2024-11-05] MEDS: 0.9 % Sodium Chloride Flush 3 ML SYRINGE IVFLUSH ×4 (00:46→20:01)
[2024-11-05] MEDS: Enoxaparin Sodium 40 MG/0.4 ML SYRINGE SUBCUT (00:46)
[2024-11-05] MEDS: vancomycin HCL 1,500 MG in 0.9 % Sodium Chloride 500 ML 333.33 MG IV ×2 (01:40→23:12)
--- NOTE | 2024-11-05 02:06 | PC.NURSE ---
Late nurse's note entry by this RN: Patient arrived earlier this shift via EMS due to dyspnea & hypoxia (oxygen saturation 80-85% on room air). Recently admitted and discharged for aspiration pneumonia, hemoptysis. Patient is known to this RN. 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 Recently taking PO antibiotics (patient doesn't recall name of medication) and stated that he completed as ordered. Patient is not febrile at this time. IV access established to bilateral AC (both 18g IV accesses). Left AC established by EMS, Right AC established by Dulce AGUILAR. Sepsis protocol was initiated by LEONEL Kemp. Patient currently on high flow oxygen placed by Respiratory Therapist (Raghav Barclay) due to hypoxia on room air and standard nasal cannula. Reports chest wall pain with cough, which has been persistent. Was given Tessalon earlier this shift with improvement. Patient is able to rest intermittently. IV antibiotics given as ordered. Awaiting admission bed assignment. Pain being managed as ordered with Morphine & Tylenol. Vancomycin infusing at this time. Care ongoing by this RN.
[2024-11-05] MEDS: Morphine Sulfate 4 MG/ML CARTRIDGE IVPUSH ×6 (03:27→23:56)
[2024-11-05] MEDS: Albuterol Sulfate 7.5 MG, Albuterol Sulfate (0.083%) 2.5 MG 10 MG INHALE (07:03)
[2024-11-05 09:09] LABS: Adenovirus PCR Not Detected (Not Detect.); Bordetella parapertussis PCR Not Detected (Not Detect.); Bordetella pertussis PCR Not Detected (Not Detect.); Chlamydia pneumoniae PCR Not Detected (Not Detect.); Coronavirus 229E PCR Not Detected (Not Detect.); Coronavirus HKU1 PCR Not Detected (Not Detect.); Coronavirus NL63 PCR Not Detected (Not Detect.); Coronavirus OC43 PCR Not Detected (Not Detect.); Human metapneumovirus PCR Not Detected (Not Detect.); Influenza A PCR Not Detected (Not Detect.); Influenza B PCR Not Detected (Not Detect.); Mycoplasma pneumoniae PCR Not Detected (Not Detect.); Parainfluenza 1 PCR Not Detected (Not Detect.); Parainfluenza 2 PCR Not Detected (Not Detect.); Parainfluenza 3 PCR Not Detected (Not Detect.); Parainfluenza 4 PCR Not Detected (Not Detect.); RSV PCR Not Detected (Not Detect.); Rhino/Enterovirus PCR Not Detected (Not Detect.)
[2024-11-05] MEDS: Ketorolac Tromethamine 30 MG/ML VIAL IVPUSH (09:28)
[2024-11-05 09:30] LABS: SARS-CoV-2 PCR Not Detected (Not Detect.)
[2024-11-05 09:55] LABS: Basophils Percent Auto 0.2 % (0-2); Hematocrit 39.2 % (42.0-52.0); Hemoglobin 13.2 g/dl (14.0-18.0); Imm Gran Abs Auto 0.25 X10*3/uL (0.00-0.03); Imm Gran Pct Auto 1.7 % (0.0-0.4); Lymphocytes Absolute Auto 0.6 X10*3/uL (1.2-4.9); Lymphocytes Percent Auto 3.9 % (20-40); MANUAL DIFF FLAG SCAN; Mean Corpuscular HGB Conc 33.7 g/dl (31.0-36.0); Mean Corpuscular Hemoglobin 30.8 pg (27.0-33.0); Mean Corpuscular Volume 91.4 fL (80.0-98.0); Mean Platelet Volume 8.8 fL (9.4-12.4); Monocytes Absolute Auto 0.1 X10*3/uL (0.1-1.2); Monocytes Percent Auto 0.6 % (2-11); Neutrophils Absolute Auto 13.5 x10*3/uL (2.0-8.3); Neutrophils Percent Auto 93.6 % (45-73); Platelet Count 749 X10*3/uL (160-400); Red Blood Count 4.29 X10*6/uL (4.60-5.80); Red Cell Distribution Width 12.6 % (11.0-16.0); SCAN SMEAR FLAG 1; White Blood Count 14.5 X10*3/uL (4.8-10.8)
[2024-11-05 10:16] LABS: Creatinine Clr Calc Pharmacy 99.6; Estimated Glomerular Filt Rate > 60
[2024-11-05 10:19] LABS: Anion Gap 14 (12-20); Blood Urea Nitrogen 8 mg/dL (9-16); Calcium 8.9 mg/dL (8.4-10.2); Carbon Dioxide 18 mmol/L (22-29); Chloride 109 mmol/L (96-108); Creatinine Clr Calc Pharmacy 97.3; Estimated Glomerular Filt Rate > 60; Glucose Random 263 mg/dL (60-115); Potassium 4.3 mmol/L (3.3-5.1); Sodium 137 mmol/L (135-145)
--- NOTE | 2024-11-05 10:28 | PHA.PROG ---
Admission Date/Time: November 04, 2024 23:47 Indication:SEPSIS Weight in k.9 kg Serum Creatinine - Last 168 Hours 11/04/24 11/05/24 11/05/24 21:51 09:28 09:28 Creatinine 0.69 0.86 0.84 Estimated CrCl and GFR - Last 168 Hours 11/04/24 11/05/24 11/05/24 21:51 09:28 09:28 Estim Creat Clear Calc 121.3 97.3 99.6 Estimated GFR > 60 > 60 11/05/24 09:28 Estim Creat Clear Calc Estimated GFR > 60 Vancomycin Loading Dose: 1500 Current Vancomycin Dosing Regimen: 1500 Q 24H Vancomycin Monitoring using AUC goal of 400 - 600 range with trough as surrogate marker: 577 Date and Time for next Vancomycin Level to be drawn: 11/06 @ 2100 Pharmacist Comments on Vancomycin Plan: Vancomycin dosing will take advantage of [employer] as a clinical decision support tool that uses Bayesian modeling to calculate individual patient's pharmacokinetic parameters and forecast the patient's drug concentration time course with the target goal AUC 24 range of 400 - 600 mg/L/hr.
--- NOTE | 2024-11-05 10:32 | MHC.CM.PN ---
EMR REVIEWED, PT READMITTED W/DYSPNEA AND C/O CHEST PAIN, CM MET W/PT WHO REPORTS NOTHING HAS CHANGED SINCE DC 3 DAYS AGO, PT STILL LIVES W/COUSIN, IS INDEP W/CARE, DENIES USE OF DME/SERVICES AND GOAL FOR DC IS HOME WHEN MEDICALLY CLEARED. PT DENIES HAVING A PCP, 2 ADMITS AGOO CM SET PT UP W/NEW PCP APPT HOWEVER PT DID NOT SHOW UP FOR APPT, PT DECLINES ASSISTANCE W/ANOTHER APPT AT THIS TIME HOWEVER IS ON HI-FLOW O2 AND CM WILL REVISIT, PT DECLINES HCP AT THIS TIME.
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
[2024-11-05 12:11] LABS: SLIDE REVIEW VERIFIED
--- NOTE | 2024-11-05 13:32 | PHA.MEDREC ---
Pharmacy Consult ? Medication Reconciliation Pharmacy has completed the medication reconciliation. Spoke with patient at bedside to confirm medicaitons
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
[2024-11-06] VITALS (34 sets, daily range): BP systolic 71–158; BP diastolic 31–119; PULSE 63–130; RESP 16–29; TEMP 35–36.8; O2SAT 84–99
[2024-11-06] MEDS: LORazepam 2 MG/ML VIAL 1 MG IVPUSH (01:00)
[2024-11-06] MEDS: Piperacillin Sodium/Tazobactam 4.5 GM in 0.9 % Sodium Chloride 100 ML IV ×4 (01:24→23:59)
[2024-11-06] MEDS: Morphine Sulfate 4 MG/ML CARTRIDGE IVPUSH ×2 (05:04→09:34)
[2024-11-06 07:24] LABS: Creatinine Clr Calc Pharmacy 114.6; Estimated Glomerular Filt Rate > 60
--- NOTE | 2024-11-06 07:52 | MHC.SHP ---
Pre-Procedural Eval Section A - 24 Hr Update-Section A only Date of Service: 11/06/24 The patient is an INPATIENT: Yes Section B - Complete if H&P > 30 days Chief Complaint: Dyspnea Allergies: Allergies Allergy/AdvReac Type Severity Reaction Status Date / Time No Known Allergies Allergy Verified 11/04/24 21:43 Plan I have reviewed the history and physical and performed a pertinent physical examination on my patient. No changes have occurred unless specified. Time Spent With Patient Time: Total time managing care of this patient today ____ minutes.
[2024-11-06 08:21] LABS: Hematocrit 35.3 % (42.0-52.0); Hemoglobin 11.6 g/dl (14.0-18.0); Mean Corpuscular HGB Conc 32.9 g/dl (31.0-36.0); Mean Corpuscular Hemoglobin 30.5 pg (27.0-33.0); Mean Corpuscular Volume 92.9 fL (80.0-98.0); Mean Platelet Volume 9.4 fL (9.4-12.4); Platelet Count 684 X10*3/uL (160-400); Red Cell Distribution Width 12.8 % (11.0-16.0); White Blood Count 21.9 X10*3/uL (4.8-10.8)
[2024-11-06] MEDS: 0.9 % Sodium Chloride Flush 3 ML SYRINGE IVFLUSH (08:47)
[2024-11-06 08:56] LABS: Blood Urea Nitrogen 8 mg/dL (9-16); Calcium 8.3 mg/dL (8.4-10.2); Glucose Random 93 mg/dL (60-115)
[2024-11-06 09:16] LABS: Anion Gap 12 (12-20); Carbon Dioxide 21 mmol/L (22-29); Chloride 111 mmol/L (96-108); Sodium 140 mmol/L (135-145)
[2024-11-06] MEDS: Benzonatate 100 MG CAPSULE PO (09:34)
--- NOTE | 2024-11-06 11:31 | MHC.CM.PN ---
Per rounds, pt is not ready for DC, he is requiring high flow supplemental O2. CM to follow for DC needs.
--- NOTE | 2024-11-06 14:13 | PC.NURSE ---
pt brought now to OR at 1413 on 15L non-rebreather
--- NOTE | 2024-11-06 14:25 | PC.NURSE ---
pt brought down to OR at 1413. per respiratory placed on non-rebreather
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
[2024-11-06] MEDS: Rocuronium Bromide 50 MG/5 ML VIAL IVPUSH ×3 (16:13→17:02)
[2024-11-06] MEDS: Midazolam HCl/NS 50 MG/50 ML PLAST..BAG IVCONT ×2 (16:15→21:34)
[2024-11-06] MEDS: propofoL 1,000 MG/100 ML VIAL 18.57 MG IVCONT ×2 (16:15→19:16)
[2024-11-06] MEDS: fentaNYL citrate/NS 1,000 MCG/100 ML PLAST..BAG 10 MCG IVCONT (16:19)
[2024-11-06] MEDS: Cisatracurium Besylate 100 MG in 0.9 % Sodium Chloride 40 ML IVCONT (17:36)
--- NOTE | 2024-11-06 17:47 | PC.NURSE ---
Pt arrived from PACU via bed at 1615. Patient intubated w/ propofol & versed gtts administering upon arrival. Patient moving extremities, reaching for ETT - MD at bedside - Versed gtt increased to 5mg/hr VO Dr Chapin and Fentanyl gtt ordered and started at 100mcg/hr VO Dr Chapin. Patient O2 sat maintaining mid 80's - RT and MD at bedside - vent settings adjusted multiple times by MD and RT. Current vent settings: ACVC+ 26/260/6/100%. Ector 50 IVP ordered and administered x3. Nimbex gtt ordered and started per EMAR. Scant blood streaked inline secretions - MD aware. Current vitals: HR 113, sinus, RR 26, 109/59 (75), 84% on 100% Fio2. Partial bath provided, repositioned to right side with hover mat assistance, air loss pump and heel boots in place, barrier cream applied to bilateral buttocks. High fall risk precautions in place. Care ongoing.
[2024-11-06] MEDS: Tranexamic Acid 1,000 MG in 0.9 % Sodium Chloride 50 ML 360 MG IV (18:14)
[2024-11-06 18:28] LABS: Hematocrit 35.2 % (42.0-52.0); Hemoglobin 11.5 g/dl (14.0-18.0); Mean Corpuscular HGB Conc 32.7 g/dl (31.0-36.0); Mean Corpuscular Hemoglobin 30.4 pg (27.0-33.0); Mean Corpuscular Volume 93.1 fL (80.0-98.0); Platelet Count 645 X10*3/uL (160-400); Red Blood Count 3.78 X10*6/uL (4.60-5.80); Red Cell Distribution Width 12.9 % (11.0-16.0); White Blood Count 23.6 X10*3/uL (4.8-10.8)
[2024-11-06 18:29] LABS: INTERNATIONAL NORM RATIO 1.4 (0.9-1.1); Lactic Acid 1.3 mmol/L (0.5-2.0); Prothrombin Time 16.4 SEC (10.9-12.4)
[2024-11-06 18:35] LABS: Alanine Aminotransferase 15 U/L (0-40); Alkaline Phosphatase 58 U/L (39-117); Anion Gap 10 (12-20); Aspartate Amino Transferase 21 U/L (5-37); Bilirubin Total 0.2 mg/dL (0.0-1.0); Blood Urea Nitrogen 8 mg/dL (9-16); Calcium 7.7 mg/dL (8.4-10.2); Carbon Dioxide 25 mmol/L (22-29); Chloride 106 mmol/L (96-108); Creatinine Clr Calc Pharmacy 121.3; Estimated Glomerular Filt Rate > 60; Glucose Random 147 mg/dL (60-115); Potassium 3.6 mmol/L (3.3-5.1); Sodium 137 mmol/L (135-145); Total Protein 6.9 g/dL (6.5-8.0)
--- NOTE | 2024-11-06 19:18 | W.PM.CCHP ---
Procedures Date of Service Date of Service: 11/06/24 Bronchoscopy Consent for Procedure: Emergent-no informed consent obtained Indication: atelectasis Procedure: large mass noted in distal trachea and right main brochus, mass from trachea cleared and left main and segmental bronchus were cleared from bloody secretions. Saturations improved from 84 pre procedure to 96 post procedure Route: endotracheal tube Complications: none Intubation Consent for Procedure: Emergent-no informed consent obtained Time out performed: No Sedative: propofol Paralytic: other (Nimbex) Laryngoscope: fiber optic video scope ET tube size: 8.5 ET tube uncuffed: Yes Tube secured depth (cm): 23 Tube secured location: teeth Tube placement confirmation: visualized tube passing through cords Patient tolerated procedure: well Intubation complications: none
[2024-11-06] MEDS: Norepinephrine Bitartrate/D5W 8 MG/250 ML PLAST..BAG 23.21 MG IVCONT (19:40)
[2024-11-06 20:36] LABS: Hematocrit 36.9 % (42.0-52.0); Hemoglobin 12.3 g/dl (14.0-18.0); Mean Corpuscular HGB Conc 33.3 g/dl (31.0-36.0); Mean Corpuscular Hemoglobin 30.5 pg (27.0-33.0); Mean Corpuscular Volume 91.6 fL (80.0-98.0); Mean Platelet Volume 8.8 fL (9.4-12.4); Platelet Count 787 X10*3/uL (160-400); Red Blood Count 4.03 X10*6/uL (4.60-5.80); Red Cell Distribution Width 12.9 % (11.0-16.0); White Blood Count 27.4 X10*3/uL (4.8-10.8)
--- NOTE | 2024-11-06 20:50 | W.PM.CCHP ---
Procedures Date of Service Date of Service: 11/07/24 Intubation Intubation Comments: Earlier on the patient underwent bronchoscopy by who confirmed there is a mass in the right mainstem, there is near complete collapse of the right lung. It is also bleeding noted from the area. Bronchoscope beats of showed no complications however the balloon of the endotracheal tube might have been punctured which cause a significant air leak lowering the patient's O2 sat to the mid 70s. Patient remains sedated on propofol. Using a bougie, this was passed with the in the existing endotracheal tube, all tube was pulled out, new to placed in (7.5, secure that 25 of the lip initially but after reviewing the x-ray was moved back 2 cm currently at 23 at the lip. No complications. Post procedural x-ray does note a small possible pneumothorax of the right apex. Consent for Procedure: Emergent-no informed consent obtained Time out performed: Yes Sedative: propofol (gtt) Assist device used: Bougie ET tube size: 7.5 ET tube uncuffed: Yes Tube secured depth (cm): 23 Tube secured location: lips Tube placement confirmation: visualized tube passing through cords, equal breath sounds bilaterally, no breath sounds over epigastrium and confirmation by capnometry Patient tolerated procedure: well and no complications Intubation complications: none and other (There could be a tiny right apical pneumothorax perhaps post bronchoscopy, will follow up with Radiology and repeat study as needed)
[2024-11-06 20:51] LABS: Alanine Aminotransferase 15 U/L (0-40); Albumin Level 3.3 g/dL (3.5-5.0); Alkaline Phosphatase 64 U/L (39-117); Anion Gap 13 (12-20); Aspartate Amino Transferase 20 U/L (5-37); Bilirubin Total 0.3 mg/dL (0.0-1.0); Blood Urea Nitrogen 9 mg/dL (9-16); Calcium 8.2 mg/dL (8.4-10.2); Carbon Dioxide 23 mmol/L (22-29); Chloride 105 mmol/L (96-108); Estimated Glomerular Filt Rate > 60; Glucose Random 156 mg/dL (60-115); Potassium 4.2 mmol/L (3.3-5.1); Sodium 137 mmol/L (135-145); Total Protein 7.3 g/dL (6.5-8.0)
[2024-11-06] MEDS: Tranexamic Acid 1,000 MG in 0.9 % Sodium Chloride 250 ML 260 MG IV (20:53)
[2024-11-06 21:33] LABS: Vancomycin Random 2.1 mcg/mL (15-20)
[2024-11-06] MEDS: Chlorhexidine Gluc Oral Rinse 15 ML MOUTHWASH BUCCAL (21:34)
[2024-11-06] MEDS: vancomycin HCL 1,000 MG in 0.9 % Sodium Chloride 250 ML 270 MG IV (22:31)
[2024-11-07] VITALS (39 sets, daily range): BP systolic 93–132; BP diastolic 59–80; PULSE 62–90; RESP 16–18; TEMP 35–38.2; O2SAT 92–98
[2024-11-07] MEDS: propofoL 1,000 MG/100 ML VIAL 18.57 MG IVCONT (00:30)
[2024-11-07] MEDS: Cisatracurium Besylate 100 MG in 0.9 % Sodium Chloride 40 ML IVCONT ×2 (00:51→14:55)
[2024-11-07] MEDS: Pantoprazole Sodium 40 MG/10 ML VIAL IVPUSH (05:18)
[2024-11-07] MEDS: Piperacillin Sodium/Tazobactam 4.5 GM in 0.9 % Sodium Chloride 100 ML IV ×4 (05:18→23:36)
[2024-11-07] MEDS: propofoL 1,000 MG/100 ML VIAL 14.86 MG IVCONT ×3 (05:26→18:41)
[2024-11-07 06:08] LABS: MANUAL DIFF FLAG NO
[2024-11-07] MEDS: vancomycin HCL 1,000 MG in 0.9 % Sodium Chloride 250 ML 270 MG IV ×2 (06:09→15:18)
[2024-11-07 06:10] LABS: Venous Blood Gas Refer to POC result
[2024-11-07 06:10] LABS: Basophils Percent Auto 0.2 % (0-2); Eosinophils Absolute Auto 0.1 X10*3/uL (0.0-0.4); Eosinophils Percent Auto 0.5 % (0-4); Hematocrit 30.5 % (42.0-52.0); Hemoglobin 10.1 g/dl (14.0-18.0); Imm Gran Abs Auto 0.19 X10*3/uL (0.00-0.03); Lymphocytes Absolute Auto 1.8 X10*3/uL (1.2-4.9); Lymphocytes Percent Auto 9.5 % (20-40); Mean Corpuscular HGB Conc 33.1 g/dl (31.0-36.0); Mean Corpuscular Hemoglobin 30.3 pg (27.0-33.0); Mean Corpuscular Volume 91.6 fL (80.0-98.0); Mean Platelet Volume 8.8 fL (9.4-12.4); Monocytes Absolute Auto 1.1 X10*3/uL (0.1-1.2); Neutrophils Absolute Auto 15.6 x10*3/uL (2.0-8.3); Neutrophils Percent Auto 82.8 % (45-73); Platelet Count 571 X10*3/uL (160-400); Red Blood Count 3.33 X10*6/uL (4.60-5.80); Red Cell Distribution Width 12.6 % (11.0-16.0); White Blood Count 18.8 X10*3/uL (4.8-10.8)
[2024-11-07 06:15] LABS: VBG Base Excess 7.5 mmol/L; VBG HCO3 33 mmol/L (22-26); VBG pCO2 50 mmHg; VBG pH 7.41 (7.32-7.43); VBG pO2 74 mmHg
[2024-11-07] MEDS: Midazolam HCl/NS 50 MG/50 ML PLAST..BAG IVCONT ×2 (06:18→15:20)
[2024-11-07 06:24] LABS: Alanine Aminotransferase 12 U/L (0-40); Alkaline Phosphatase 54 U/L (39-117); Anion Gap 10 (12-20); Aspartate Amino Transferase 21 U/L (5-37); Bilirubin Total 0.3 mg/dL (0.0-1.0); Blood Urea Nitrogen 9 mg/dL (9-16); Calcium 8.7 mg/dL (8.4-10.2); Carbon Dioxide 27 mmol/L (22-29); Chloride 111 mmol/L (96-108); Creatinine Clr Calc Pharmacy 128.7; Estimated Glomerular Filt Rate > 60; Glucose Random 88 mg/dL (60-115); Magnesium 2.4 mg/dL (1.6-2.6); Phosphorus 4.1 mg/dL (2.7-4.5); Potassium 3.8 mmol/L (3.3-5.1); Sodium 144 mmol/L (135-145); Total Protein 6.5 g/dL (6.5-8.0)
[2024-11-07] MEDS: 0.9 % Sodium Chloride Flush 3 ML SYRINGE IVFLUSH ×3 (08:48→18:08)
[2024-11-07] MEDS: Chlorhexidine Gluc Oral Rinse 15 ML MOUTHWASH BUCCAL ×3 (08:48→21:18)
[2024-11-07] MEDS: fentaNYL citrate/NS 1,000 MCG/100 ML PLAST..BAG 10 MCG IVCONT ×3 (10:00→20:01)
--- NOTE | 2024-11-07 11:40 | PM.OP ---
Brief Operative Note Date of Service: 11/06/24 Pre-op diagnosis: OLIVIA airway obstruction Post-op diagnosis: other (Lung cancer proximal OLIVIA) Procedure: Bronchoscopy with biopsies and washings Implants: Surgeon: Noman Caldwell MD Anesthesia: GETA Was an Program Aide used for this Procedure?: No Estimated blood loss (mL): 2 Pathology: other (OLIVIA mass) Condition: critical Disposition: ICU Complications (if any): The patient was intubated knowing that he probably was not going to be able to be extubated. Transfered to the ICU
--- NOTE | 2024-11-07 13:52 | P.PNCC_ITS ---
Subjective Subjective Date of Service: 11/07/24 Critical Care Time (minutes): 35 Comment: Slowly improving vent setting, down to 70% oxygen this morning When propofol for sedation, fentanyl for analgesia Physical Exam 2 Vital Signs: Vital Signs: Last Vital Signs Temp 99.5 F 11/07/24 13:00 Pulse 87 11/07/24 13:00 Resp 16 11/07/24 13:00 BP 97/61 11/07/24 13:00 Pulse Ox 92 11/07/24 13:00 O2 Del Method Mechanical Ventil ation 11/07/24 13:00 O2 Flow Rate 55 11/06/24 00:00 FiO2 60 11/07/24 13:00 BMI result Body Mass Index 22.7 General: in acute distress, ill appearing and tired appearing Nutritional Appearance: well nourished and overweight Eyes: appearance normal, both eyes and all related structures; Alignment and Position: alignment normal and position normal Neck: No lymphadenopathy, no thyromegaly Resp: bilateral air entry equal, decreased breath sounds right lung area, crackles sudden left lung Cardio: Regular rate, regular rhythm; Heart sounds: S1 normal heart sound present and S2 normal heart sound present GI: soft, nontender, no guarding, no hepatosplenomegaly : bladder normal to inspection, bladder normal to palpation, no renal angle tenderness Skin: no rashes or lesions noted and elasticity normal Neuro: Sedated, no focal deficits Objective Data Labs 11/07/24 06:02 11/07/24 06:02 Labs: Laboratory Results - last 24 hr 11/06/24 11/06/24 11/06/24 18:04 20:22 20:23 WBC 23.6 H 27.4 H RBC 3.78 L 4.03 L Hgb 11.5 L 12.3 L Hct 35.2 L 36.9 L MCV 93.1 91.6 MCH 30.4 30.5 MCHC 32.7 33.3 RDW 12.9 12.9 Plt Count 645 H 787 H MPV 9.0 L 8.8 L Immature Gran % (Auto) Neut % (Auto) Lymph % (Auto) [place] % (Auto) Eos % (Auto) Baso % (Auto) Lymph # (Auto) [place] # (Auto) Eos # (Auto) Baso # (Auto) Abs Immat Gran (auto) Absolute Neuts (auto) Absolute Nucleated RBC 0.000 0.000 Nucleated RBC % (auto) 0.0 0.0 Hold Purple Top PT 16.4 H INR 1.4 H VBG pH VBG pCO2 VBG pO2 VBG HCO3 VBG O2 Saturation VBG Base Excess Sodium 137 137 Potassium 3.6 4.2 Chloride 106 105 Carbon Dioxide 25 23 Anion Gap 10 L 13 BUN 8 L 9 Creatinine 0.69 0.82 Estim Creat Clear Calc 121.3 102.0 Estimated GFR > 60 > 60 Random Glucose 147 H 156 H Lactic Acid 1.3 Calcium 7.7 L D 8.2 L D Phosphorus Magnesium Total Bilirubin 0.2 0.3 AST 21 20 ALT 15 15 Alkaline Phosphatase 58 64 Total Protein 6.9 7.3 Albumin 3.0 L 3.3 L Random Vancomycin Blood Type O Positive Antibody Screen NEGATIVE 11/06/24 11/07/24 11/07/24 21:01 06:02 06:02 WBC 18.8 H Cancelled RBC 3.33 L Hgb Hct MCV MCH MCHC RDW Plt Count MPV Immature Gran % (Auto) Neut % (Auto) Lymph % (Auto) [place] % (Auto) Eos % (Auto) Baso % (Auto) Lymph # (Auto) [place] # (Auto) Eos # (Auto) Baso # (Auto) Abs Immat Gran (auto) Absolute Neuts (auto) Absolute Nucleated RBC Nucleated RBC % (auto) Hold Purple Top SEE NOTE PT INR VBG pH VBG pCO2 VBG pO2 VBG HCO3 VBG O2 Saturation VBG Base Excess Sodium Potassium Chloride Carbon Dioxide Anion Gap BUN Creatinine Estim Creat Clear Calc Estimated GFR Random Glucose Lactic Acid Calcium Phosphorus Magnesium Total Bilirubin AST ALT Alkaline Phosphatase Total Protein Albumin Random Vancomycin 2.1 L Blood Type Antibody Screen 11/07/24 11/07/24 11/07/24 06:02 06:02 06:02 WBC RBC Cancelled Hgb 10.1 L Cancelled Hct 30.5 L Cancelled MCV 91.6 MCH MCHC RDW Plt Count MPV Immature Gran % (Auto) Neut % (Auto) Lymph % (Auto) [place] % (Auto) Eos % (Auto) Baso % (Auto) Lymph # (Auto) [place] # (Auto) Eos # (Auto) Baso # (Auto) Abs Immat Gran (auto) Absolute Neuts (auto) Absolute Nucleated RBC Nucleated RBC % (auto) Hold Purple Top PT INR VBG pH VBG pCO2 VBG pO2 VBG HCO3 VBG O2 Saturation VBG Base Excess Sodium Potassium Chloride Carbon Dioxide Anion Gap BUN Creatinine Estim Creat Clear Calc Estimated GFR Random Glucose Lactic Acid Calcium Phosphorus Magnesium Total Bilirubin AST ALT Alkaline Phosphatase Total Protein Albumin Random Vancomycin Blood Type Antibody Screen 11/07/24 11/07/24 11/07/24 06:02 06:02 06:02 WBC RBC Hgb Hct MCV Cancelled MCH 30.3 Cancelled MCHC 33.1 Cancelled RDW 12.6 Plt Count MPV Immature Gran % (Auto) Neut % (Auto) Lymph % (Auto) [place] % (Auto) Eos % (Auto) Baso % (Auto) Lymph # (Auto) [place] # (Auto) Eos # (Auto) Baso # (Auto) Abs Immat Gran (auto) Absolute Neuts (auto) Absolute Nucleated RBC Nucleated RBC % (auto) Hold Purple Top PT INR VBG pH VBG pCO2 VBG pO2 VBG HCO3 VBG O2 Saturation VBG Base Excess Sodium Potassium Chloride Carbon Dioxide Anion Gap BUN Creatinine Estim Creat Clear Calc Estimated GFR Random Glucose Lactic Acid Calcium Phosphorus Magnesium Total Bilirubin AST ALT Alkaline Phosphatase Total Protein Albumin Random Vancomycin Blood Type Antibody Screen 11/07/24 11/07/24 11/07/24 06:02 06:02 06:02 WBC RBC Hgb Hct MCV MCH MCHC RDW Cancelled Plt Count 571 H D Cancelled MPV 8.8 L Cancelled Immature Gran % (Auto) 1.0 H Neut % (Auto) 82.8 H Lymph % (Auto) 9.5 L [place] % (Auto) 6.0 Eos % (Auto) 0.5 Baso % (Auto) 0.2 Lymph # (Auto) 1.8 [place] # (Auto) 1.1 Eos # (Auto) 0.1 Baso # (Auto) 0.0 Abs Immat Gran (auto) 0.19 H Absolute Neuts (auto) 15.6 H Absolute Nucleated RBC 0.000 Nucleated RBC % (auto) Hold Purple Top PT INR VBG pH VBG pCO2 VBG pO2 VBG HCO3 VBG O2 Saturation VBG Base Excess Sodium Potassium Chloride Carbon Dioxide Anion Gap BUN Creatinine Estim Creat Clear Calc Estimated GFR Random Glucose Lactic Acid Calcium Phosphorus Magnesium Total Bilirubin AST ALT Alkaline Phosphatase Total Protein Albumin Random Vancomycin Blood Type Antibody Screen 11/07/24 11/07/24 11/07/24 06:02 06:02 06:02 WBC RBC Hgb Hct MCV MCH MCHC RDW Plt Count MPV Immature Gran % (Auto) Neut % (Auto) Lymph % (Auto) [place] % (Auto) Eos % (Auto) Baso % (Auto) Lymph # (Auto) [place] # (Auto) Eos # (Auto) Baso # (Auto) Abs Immat Gran (auto) Absolute Neuts (auto) Absolute Nucleated RBC Cancelled Nucleated RBC % (auto) 0.0 Cancelled Hold Purple Top PT INR VBG pH VBG pCO2 VBG pO2 VBG HCO3 VBG O2 Saturation VBG Base Excess Sodium Cancelled 144 Potassium Cancelled Chloride Carbon Dioxide Anion Gap BUN Creatinine Estim Creat Clear Calc Estimated GFR Random Glucose Lactic Acid Calcium Phosphorus Magnesium Total Bilirubin AST ALT Alkaline Phosphatase Total Protein Albumin Random Vancomycin Blood Type Antibody Screen 11/07/24 11/07/24 11/07/24 06:02 06:02 06:02 WBC RBC Hgb Hct MCV MCH MCHC RDW Plt Count MPV Immature Gran % (Auto) Neut % (Auto) Lymph % (Auto) [place] % (Auto) Eos % (Auto) Baso % (Auto) Lymph # (Auto) [place] # (Auto) Eos # (Auto) Baso # (Auto) Abs Immat Gran (auto) Absolute Neuts (auto) Absolute Nucleated RBC Nucleated RBC % (auto) Hold Purple Top PT INR VBG pH VBG pCO2 VBG pO2 VBG HCO3 VBG O2 Saturation VBG Base Excess Sodium Potassium 3.8 Chloride Cancelled 111 H Carbon Dioxide Cancelled 27 Anion Gap Cancelled BUN Creatinine Estim Creat Clear Calc Estimated GFR Random Glucose Lactic Acid Calcium Phosphorus Magnesium Total Bilirubin AST ALT Alkaline Phosphatase Total Protein Albumin Random Vancomycin Blood Type Antibody Screen 11/07/24 11/07/24 11/07/24 06:02 06:02 06:02 WBC RBC Hgb Hct MCV MCH MCHC RDW Plt Count MPV Immature Gran % (Auto) Neut % (Auto) Lymph % (Auto) [place] % (Auto) Eos % (Auto) Baso % (Auto) Lymph # (Auto) [place] # (Auto) Eos # (Auto) Baso # (Auto) Abs Immat Gran (auto) Absolute Neuts (auto) Absolute Nucleated RBC Nucleated RBC % (auto) Hold Purple Top PT INR VBG pH VBG pCO2 VBG pO2 VBG HCO3 VBG O2 Saturation VBG Base Excess Sodium Potassium Chloride Carbon Dioxide Anion Gap 10 L BUN Cancelled 9 Creatinine Cancelled 0.65 Estim Creat Clear Calc Cancelled Estimated GFR Random Glucose Lactic Acid Calcium Phosphorus Magnesium Total Bilirubin AST ALT Alkaline Phosphatase Total Protein Albumin Random Vancomycin Blood Type Antibody Screen 11/07/24 11/07/24 11/07/24 06:02 06:02 06:02 WBC RBC Hgb Hct MCV MCH MCHC RDW Plt Count MPV Immature Gran % (Auto) Neut % (Auto) Lymph % (Auto) [place] % (Auto) Eos % (Auto) Baso % (Auto) Lymph # (Auto) [place] # (Auto) Eos # (Auto) Baso # (Auto) Abs Immat Gran (auto) Absolute Neuts (auto) Absolute Nucleated RBC Nucleated RBC % (auto) Hold Purple Top PT INR VBG pH VBG pCO2 VBG pO2 VBG HCO3 VBG O2 Saturation VBG Base Excess Sodium Potassium Chloride Carbon Dioxide Anion Gap BUN Creatinine Estim Creat Clear Calc 128.7 Estimated GFR Cancelled > 60 Random Glucose Cancelled 88 Lactic Acid Calcium Cancelled Phosphorus Magnesium Total Bilirubin AST ALT Alkaline Phosphatase Total Protein Albumin Random Vancomycin Blood Type Antibody Screen 11/07/24 11/07/24 06:02 06:08 WBC RBC Hgb Hct MCV MCH MCHC RDW Plt Count MPV Immature Gran % (Auto) Neut % (Auto) Lymph % (Auto) [place] % (Auto) Eos % (Auto) Baso % (Auto) Lymph # (Auto) [place] # (Auto) Eos # (Auto) Baso # (Auto) Abs Immat Gran (auto) Absolute Neuts (auto) Absolute Nucleated RBC Nucleated RBC % (auto) Hold Purple Top PT INR VBG pH 7.41 VBG pCO2 50 VBG pO2 74 VBG HCO3 33 H VBG O2 Saturation 96.0 VBG Base Excess 7.5 Sodium Potassium Chloride Carbon Dioxide Anion Gap BUN Creatinine Estim Creat Clear Calc Estimated GFR Random Glucose Lactic Acid Calcium 8.7 D Phosphorus 4.1 Magnesium 2.4 Total Bilirubin 0.3 AST 21 ALT 12 Alkaline Phosphatase 54 Total Protein 6.5 Albumin 3.0 L Random Vancomycin Blood Type Antibody Screen Microbiology Microbiology Results: Microbiology 11/06/24 14:30 Bronchial Washings Gram Stain - Final 11/06/24 14:30 Bronchial Washings Routine Culture - Preliminary No growth to date. 11/06/24 01:18 Sputum - Induced Gram Stain - Final 11/06/24 01:18 Sputum - Induced Sputum Culture - Preliminary 11/04/24 22:41 Blood - Venous Blood Culture - Preliminary No growth after 48 hours. 11/04/24 22:26 Blood - Venous Blood Culture - Preliminary No growth after 48 hours. Progress Note: A&P Assessment and plan (1) Cavitating mass in right upper lung lobe: Status: Acute (2) Pneumonia: Status: Acute (3) Aspiration pneumonia: Status: Acute (4) Pulmonary abscess: Status: Acute (5) Acute respiratory failure with hypoxia: Status: Acute (6) Acute hypoxemic respiratory failure: Status: Acute (7) Acute encephalopathy: Status: Acute (8) Sepsis: Status: Acute (9) Acute streptococcal pharyngitis: Status: Acute Plan Neuro: Acute encephalopathy possibly due to metabolic encephalopathy On propofol and Versed for sedation, as needed fentanyl for analgesia; Nimbex for paralysis Close neurological status monitoring in the ICU every hour Cardiac: Blood pressure stable Respiratory: Acute hypoxemic respiratory failure due to complete atelectasis of the right lung and possibly pneumonia in the left lung Currently on ventilator support and very poor PF ratios On PRVC mode FiO2 down to 70%, PEEP 6, TV 260, RR 26 Peak pressures and plateau pressures are under the curve Ventilator management bundle with head end elevation, aspiration precaution, chlorhexidine mouthwash, daily awakening trials, daily spontaneous breathing trials Not a candidate for extubation at due to very high vent settings GI: We will start on tube feeds Renal: Baseline creatinine normal We will closely monitor I's and O's Avoid nephrotoxic medications Heme: Chronic anemia, closely monitor H&H, transfuse for hemoglobin less than 7 grams/deciliter Endocrine: Blood sugars under control Sliding scale insulin as needed Infectious disease: Pancultures negative so far On vanc and Zosyn for empiric coverage Musculoskeletal: Decubitus ulcer prevention protocol Lines: Peripheral Prophylaxis: SCD, pantoprazole Total critical care time spent is about 45 minutes on ventilator management, sedation management, paralytic management, vasopressor management, close hemodynamic monitoring, close neurological status monitoring, review of labs and to review of images Quality Stroke Does the patient have a stroke diagnosis?: No VTE Prior VTE?: No VTE Risk Level:: Medical - moderate - high VTE Device Contraindication: Treatment Not Indicated VTE Drug Contraindication: N/A - Med Ordered
--- NOTE | 2024-11-07 14:49 | HO.POSTANES ---
Post Anesthesia Evaluation Post Anesthesia Evaluation Date of Service: 11/07/24 Vital Signs: Vital Signs Temp Pulse Resp BP Pulse Ox O2 Del Method FiO2 11/07/24 14:00 99.7 F 85 18 103/69 94 Mechanical Ventilation 60 11/07/24 13:00 99.5 F 87 16 97/61 92 Mechanical Ventilation 60 11/07/24 12:00 93 60 11/07/24 12:00 99.5 F 86 18 95/59 L 93 Mechanical Ventilation 60 11/07/24 11:22 60 11/07/24 11:00 99.3 F 85 18 102/65 94 Mechanical Ventilation 60 11/07/24 10:00 99.0 F 86 18 96/59 L 94 Mechanical Ventilation 70 11/07/24 09:00 98.4 F 78 18 96/64 94 Mechanical Ventilation 70 11/07/24 08:30 80 11/07/24 08:00 94 70 11/07/24 08:00 98.4 F 76 18 93/59 L 95 Mechanical Ventilation 90 11/07/24 07:00 98.2 F 84 18 98/61 97 Mechanical Ventilation 90 11/07/24 06:00 98.1 F 84 17 98/62 98 Mechanical Ventilation 90 11/07/24 05:00 97.9 F 90 16 107/67 95 Mechanical Ventilation 90 11/07/24 04:19 90 11/07/24 04:00 96 90 11/07/24 04:00 98.1 F 78 16 105/64 96 Mechanical Ventilation 90 11/07/24 03:39 97.9 F 77 16 116/74 11/07/24 03:39 75 116/74 11/07/24 03:00 97.9 F 70 16 117/73 97 Mechanical Ventilation 90 Anesthesia: General Mental Status: Sedated Pain Control: Satisfactory Nausea/Vomiting: None Hydration: Adequate Anesthesia-Related Issues: No Anes. Related Issues Comments: pt is intubated in ICU
--- NOTE | 2024-11-07 17:31 | PC.RT ---
Post nursing care pt placed at 20 deg up and ett repositioned and offloaded. Nikkie well.
[2024-11-07 21:16] LABS: Vancomycin Random 17.1 mcg/mL (15-20)
--- NOTE | 2024-11-07 21:41 | HE.PHANOTE ---
RE: VANCO DOSING Trough came back as 17.1 which is much higher than predicted 11.8. Due to concern of trough level increasing over 20, dose is decreased to 1250 mg q12h starting @0300 11/08/24. Next trough is scheduled for 11/08/24 @1300.
--- NOTE | 2024-11-07 22:39 | OP_ITS ---
DATE OF SERVICE: 11/06/2024 SURGEON: Noman Caldwell MD PREOPERATIVE DIAGNOSIS: POSTOPERATIVE DIAGNOSIS: Large right mainstem lung mass, medically cancer with friability and bleeding. PROCEDURE PERFORMED: ESTIMATED BLOOD LOSS: COMPLICATIONS: No apparent complications. He was intubated with the understanding that he will need to stay intubated postprocedure because the severity of the obstruction, the bleeding, and his oxygen needs. Postop chest x-ray, no evidence of any pneumothorax. Just opacification of the right lung due to the significant obstruction for the mass. ANESTHESIA: General endotracheal intubation. The consent was obtained from the patient. ASSISTANTS: SPECIMENS: ASA CLASSIFICATION: IV. PREOPERATIVE DIAGNOSES: Right mainstem obstruction and pneumonia. PROCEDURES PERFORMED: Bronchoscopy with biopsies and washings. DESCRIPTION OF PROCEDURE: After the patient came down from the floor, he was still on high flow. Therefore, his oxygen requirements are high. The question was either to give him monitored anesthesia versus general endotracheal intubation. Because of the fact that he had some active hemoptysis, it was best to protect the airway. So, the decision was to provide him with general endotracheal anesthesia. Once he was intubated, his oxygen requirements were high 100%, maintaining with adequate oxygenation. Once the patient was fairly stable with pulse ox above 85%, the bronchoscope was introduced into the ET tube and could visualize a significant necrotic looking mass at the level of the right mainstem protruding out to the main davion and the central airway, but not impacting the left mainstem bronchus. The obstruction was 100%. The bronch could not get through this mass to see further down. At that point using forceps, forceps biopsies were obtained from this mass. Epinephrine was used 2 ampules for hemostasis. He was not bleeding at the end of procedure. Bronchial washings were also collected and sent for cytology and Gram stain culture. He has had a history of nontuberculous mycobacterial infection, so AFBs were also sent. The patient was kept intubated and transferred to the unit for safety. Bleeding 1 to 2 mm of blood and no significant bleeding with the biopsies. Epinephrine for prophylactic administration to minimize bleeding. MD FRANSICO Kelly/GENEVAL / [id number]
[2024-11-08] VITALS (39 sets, daily range): BP systolic 84–123; BP diastolic 38–77; PULSE 70–102; RESP 16–20; TEMP 35–39.2; O2SAT 90–98
[2024-11-08] MEDS: propofoL 1,000 MG/100 ML VIAL 14.86 MG IVCONT ×5 (00:14→22:32)
[2024-11-08] MEDS: Midazolam HCl/NS 50 MG/50 ML PLAST..BAG IVCONT ×3 (00:15→19:35)
[2024-11-08 00:22] LABS: Glucose, Whole Blood 54 mg/dL (60-115)
[2024-11-08] MEDS: Dextrose 10 % 250 ML 750 ML IV (00:27)
--- NOTE | 2024-11-08 00:39 | PC.NURSE ---
Addendum entered by Ofelia Parmar RN 11/08/24 01:04: OG okay to use per PA Original Note: pt diaphoretic, POC 54, PA made aware, new order d10 given as ordered. per PA place OG tube,start jevity at 10 increase q4 hours by 1oml/hr, max goal of 60ml/hr. nimbex turned off by PA, OG placed, auscultated placement, pulled back gastric contents, CXR ordered to confirm placement. pt tolerated procedure well.
[2024-11-08] MEDS: vancomycin HCL 1,250 MG in 0.9 % Sodium Chloride 250 ML 166.67 MG IV ×2 (02:54→15:08)
[2024-11-08] MEDS: Acetaminophen Oral Liquid 650 MG/20.3 ML SOLUTION 975 MG PO (04:32)
[2024-11-08] MEDS: Piperacillin Sodium/Tazobactam 4.5 GM in 0.9 % Sodium Chloride 100 ML IV ×4 (05:47→23:27)
[2024-11-08] MEDS: Pantoprazole Sodium 40 MG/10 ML VIAL IVPUSH (05:47)
[2024-11-08 05:51] LABS: VBG Base Excess 6.3 mmol/L; VBG HCO3 33 mmol/L (22-26); VBG pCO2 56 mmHg; VBG pH 7.37 (7.32-7.43); VBG pO2 33 mmHg
[2024-11-08] MEDS: fentaNYL citrate/NS 1,000 MCG/100 ML PLAST..BAG 10 MCG IVCONT ×2 (05:51→16:55)
[2024-11-08 05:52] LABS: Venous Blood Gas Refer to POC result
[2024-11-08] MEDS: Norepinephrine Bitartrate/D5W 8 MG/250 ML PLAST..BAG 5.8 MG IVCONT (05:53)
[2024-11-08 06:12] LABS: MANUAL DIFF FLAG NO
[2024-11-08 06:15] LABS: Basophils Absolute Auto 0.1 X10*3/uL (0.0-0.2); Basophils Percent Auto 0.3 % (0-2); Eosinophils Absolute Auto 0.2 X10*3/uL (0.0-0.4); Eosinophils Percent Auto 1.3 % (0-4); Hematocrit 36.2 % (42.0-52.0); Hemoglobin 11.7 g/dl (14.0-18.0); Imm Gran Abs Auto 0.19 X10*3/uL (0.00-0.03); Imm Gran Pct Auto 1.1 % (0.0-0.4); Lymphocytes Absolute Auto 2.1 X10*3/uL (1.2-4.9); Lymphocytes Percent Auto 11.6 % (20-40); Mean Corpuscular HGB Conc 32.3 g/dl (31.0-36.0); Mean Corpuscular Hemoglobin 30.5 pg (27.0-33.0); Mean Corpuscular Volume 94.3 fL (80.0-98.0); Mean Platelet Volume 8.9 fL (9.4-12.4); Monocytes Absolute Auto 1.1 X10*3/uL (0.1-1.2); Neutrophils Absolute Auto 14.3 x10*3/uL (2.0-8.3); Neutrophils Percent Auto 79.7 % (45-73); Platelet Count 586 X10*3/uL (160-400); Red Blood Count 3.84 X10*6/uL (4.60-5.80)
[2024-11-08 06:32] LABS: Alanine Aminotransferase 15 U/L (0-40); Albumin Level 2.8 g/dL (3.5-5.0); Alkaline Phosphatase 55 U/L (39-117); Anion Gap 14 (12-20); Aspartate Amino Transferase 48 U/L (5-37); Bilirubin Total 0.3 mg/dL (0.0-1.0); Blood Urea Nitrogen 11 mg/dL (9-16); Carbon Dioxide 25 mmol/L (22-29); Chloride 108 mmol/L (96-108); Creatinine Clr Calc Pharmacy 108.7; Estimated Glomerular Filt Rate > 60; Glucose Random 90 mg/dL (60-115); Magnesium 2.3 mg/dL (1.6-2.6); Phosphorus 3.4 mg/dL (2.7-4.5); Potassium 3.6 mmol/L (3.3-5.1); Sodium 143 mmol/L (135-145); Total Protein 6.3 g/dL (6.5-8.0)
[2024-11-08] MEDS: Chlorhexidine Gluc Oral Rinse 15 ML MOUTHWASH BUCCAL ×3 (08:32→22:15)
[2024-11-08] MEDS: 0.9 % Sodium Chloride Flush 3 ML SYRINGE IVFLUSH ×3 (08:32→22:30)
[2024-11-08 12:00] LABS: Glucose, Whole Blood 89 mg/dL (60-115)
--- NOTE | 2024-11-08 13:07 | P.PNCC_ITS ---
Subjective Subjective Date of Service: 11/08/24 Critical Care Time (minutes): 35 Comment: improving vent settings, FiO2 to 60% off paralytics on propofol, versed and Fentanyl drip. Physical Exam 2 Vital Signs: Vital Signs: Last Vital Signs Temp 101.3 F H 11/08/24 12:00 Pulse 89 11/08/24 12:50 Resp 16 11/08/24 12:00 BP 98/38 L 11/08/24 12:50 Pulse Ox 94 11/08/24 12:00 O2 Del Method Mechanical Ventil ation 11/08/24 12:00 O2 Flow Rate 55 11/06/24 00:00 FiO2 60 11/08/24 12:14 BMI result Body Mass Index 22.7 General: acute distress, ill appearing and tired appearing Nutritional Appearance: well nourished and overweight Eyes: appearance normal, both eyes and all related structures; Alignment and Position: alignment normal and position normal Neck: No lymphadenopathy, no thyromegaly Resp: bilateral air entry equal, absent breath sounds right lung Cardio: Regular rate, regular rhythm; Heart sounds: S1 normal heart sound present and S2 normal heart sound present GI: soft, nontender, no guarding, no hepatosplenomegaly : bladder normal to inspection, bladder normal to palpation, no renal angle tenderness Skin: no rashes or lesions noted and elasticity normal Neuro: unable to perform as patient is sedated with multiple drips Objective Data Labs 11/08/24 05:46 11/08/24 05:46 Labs: Laboratory Results - last 24 hr 11/07/24 11/08/24 11/08/24 20:57 00:18 05:40 WBC RBC Hgb Hct MCV MCH MCHC RDW Plt Count MPV Immature Gran % (Auto) Neut % (Auto) Lymph % (Auto) [place] % (Auto) Eos % (Auto) Baso % (Auto) Lymph # (Auto) [place] # (Auto) Eos # (Auto) Baso # (Auto) Abs Immat Gran (auto) Absolute Neuts (auto) Absolute Nucleated RBC Nucleated RBC % (auto) VBG pH 7.37 VBG pCO2 56 VBG pO2 33 VBG HCO3 33 H VBG O2 Saturation 53.0 VBG Base Excess 6.3 Sodium Potassium Chloride Carbon Dioxide Anion Gap BUN Creatinine Estim Creat Clear Calc Estimated GFR POC Glucose 54 L* Random Glucose Calcium Phosphorus Magnesium Total Bilirubin AST ALT Alkaline Phosphatase Total Protein Albumin Random Vancomycin 17.1 11/08/24 11/08/24 05:46 11:52 WBC 18.0 H RBC 3.84 L Hgb 11.7 L Hct 36.2 L MCV 94.3 MCH 30.5 MCHC 32.3 RDW 13.0 Plt Count 586 H MPV 8.9 L Immature Gran % (Auto) 1.1 H Neut % (Auto) 79.7 H Lymph % (Auto) 11.6 L [place] % (Auto) 6.0 Eos % (Auto) 1.3 Baso % (Auto) 0.3 Lymph # (Auto) 2.1 [place] # (Auto) 1.1 Eos # (Auto) 0.2 Baso # (Auto) 0.1 Abs Immat Gran (auto) 0.19 H Absolute Neuts (auto) 14.3 H Absolute Nucleated RBC 0.000 Nucleated RBC % (auto) 0.0 VBG pH VBG pCO2 VBG pO2 VBG HCO3 VBG O2 Saturation VBG Base Excess Sodium 143 Potassium 3.6 Chloride 108 Carbon Dioxide 25 Anion Gap 14 BUN 11 Creatinine 0.77 Estim Creat Clear Calc 108.7 Estimated GFR > 60 POC Glucose 89 Random Glucose 90 Calcium 8.0 L D Phosphorus 3.4 Magnesium 2.3 Total Bilirubin 0.3 AST 48 H ALT 15 Alkaline Phosphatase 55 Total Protein 6.3 L Albumin 2.8 L Random Vancomycin Microbiology Microbiology Results: Microbiology 11/06/24 14:30 Bronchial Washings Gram Stain - Final 11/06/24 14:30 Bronchial Washings Routine Culture - Final No growth after 2 days 11/06/24 01:18 Sputum - Induced Gram Stain - Final 11/06/24 01:18 Sputum - Induced Sputum Culture - Final 11/06/24 18:04 Blood - Subclavian Blood Culture - Preliminary No growth after 24 hours. 11/06/24 18:04 Blood - Subclavian Blood Culture - Preliminary No growth after 24 hours. 11/04/24 22:41 Blood - Venous Blood Culture - Preliminary No growth after 48 hours. 11/04/24 22:26 Blood - Venous Blood Culture - Preliminary No growth after 48 hours. Progress Note: A&P Assessment and plan (1) Acute encephalopathy: Status: Acute (2) Lung mass: Status: Acute (3) Acute hypoxemic respiratory failure: Status: Acute Plan Neuro: Acute encephalopathy possibly due to metabolic encephalopathy On propofol and Versed for sedation, as needed fentanyl for analgesia; will taper as tolerated during the day Nimbex for paralysis has been turned off Close neurological status monitoring in the ICU every hour Cardiac: Blood pressure stable Respiratory: Acute hypoxemic respiratory failure due to complete atelectasis of the right lung and possibly pneumonia in the left lung Currently on ventilator support and very poor PF ratios On PRVC mode FiO2 down to 60%, PEEP 6, TV 260, RR 26 Peak pressures and plateau pressures are under the curve Ventilator management bundle with head end elevation, aspiration precaution, chlorhexidine mouthwash, daily awakening trials, daily spontaneous breathing trials Not a candidate for extubation at due to very high vent settings GI: on tube feeds Renal: Baseline creatinine normal We will closely monitor I's and O's Avoid nephrotoxic medications Heme: Chronic anemia, closely monitor H&H, transfuse for hemoglobin less than 7 grams/deciliter Endocrine: Blood sugars under control Sliding scale insulin as needed Infectious disease: Pancultures negative so far On vanc and Zosyn for empiric coverage Musculoskeletal: Decubitus ulcer prevention protocol Lines: Peripheral Prophylaxis: SCD, pantoprazole Quality Stroke Does the patient have a stroke diagnosis?: No VTE Prior VTE?: No VTE Risk Level:: Medical - moderate - high VTE Device Contraindication: Treatment Not Indicated VTE Drug Contraindication: N/A - Med Ordered
[2024-11-08 13:14] LABS: Vancomycin Random 12.8 mcg/mL (15-20)
--- NOTE | 2024-11-08 13:33 | HE.PHANOTE ---
Vancomycin addendum: Dose was changed to 1250 mg q 12 hours, pt has only received x1 dose of 1250 mg, level of 12.8. Will recheck a level hector
[2024-11-08] MEDS: Acetaminophen 325 MG TABLET 650 MG PO (14:00)
[2024-11-08 18:25] LABS: Glucose, Whole Blood 103 mg/dL (60-115)
--- NOTE | 2024-11-08 18:46 | PC.NURSE ---
Assumed care of patient 0700 Pt provided bed full bath Family (sister and 2 brothers) updated by MD at bedside. Family made aware that Khushi (sister) in [place] is the primary contact in patient chart. Family provided other contact numbers with understanding that pt will need to be awake to consent to medical updates. Brother - Ancelmo Yamil [phone] Brother - Gagan Yamil [phone] Sister - Daniela Blake [phone] These sibling live locally and will receive text updates from Khushi
--- NOTE | 2024-11-08 21:30 | PC.NURSE ---
[facility] VISITED..TELEPHONE #: [phone]
[2024-11-08] MEDS: Norepinephrine Bitartrate/D5W 8 MG/250 ML PLAST..BAG 12.77 MG IVCONT (23:30)
[2024-11-08 23:56] LABS: Glucose, Whole Blood 130 mg/dL (60-115)
[2024-11-09] VITALS (44 sets, daily range): BP systolic 98–147; BP diastolic 55–97; PULSE 67–101; RESP 16–20; TEMP 34.35–38.4; O2SAT 90–97; BMI 24.9
[2024-11-09] MEDS: vancomycin HCL 1,250 MG in 0.9 % Sodium Chloride 250 ML 166.67 MG IV ×2 (02:06→17:14)
[2024-11-09] MEDS: fentaNYL citrate/NS 1,000 MCG/100 ML PLAST..BAG 10 MCG IVCONT ×3 (02:42→22:55)
[2024-11-09 04:45] LABS: VBG Base Excess 8.1 mmol/L; VBG HCO3 34 mmol/L (22-26); VBG pCO2 52 mmHg; VBG pH 7.41 (7.32-7.43); VBG pO2 63 mmHg
[2024-11-09 04:47] LABS: Venous Blood Gas Refer to POC result
[2024-11-09] MEDS: Midazolam HCl/NS 50 MG/50 ML PLAST..BAG IVCONT (04:59)
[2024-11-09] MEDS: propofoL 1,000 MG/100 ML VIAL 14.86 MG IVCONT ×3 (05:02→17:08)
[2024-11-09] MEDS: Piperacillin Sodium/Tazobactam 4.5 GM in 0.9 % Sodium Chloride 100 ML IV ×3 (05:04→17:20)
[2024-11-09 05:12] LABS: MANUAL DIFF FLAG NO
[2024-11-09 05:15] LABS: Basophils Percent Auto 0.3 % (0-2); Eosinophils Absolute Auto 0.5 X10*3/uL (0.0-0.4); Eosinophils Percent Auto 3.4 % (0-4); Hematocrit 33.6 % (42.0-52.0); Imm Gran Abs Auto 0.18 X10*3/uL (0.00-0.03); Imm Gran Pct Auto 1.2 % (0.0-0.4); Lymphocytes Absolute Auto 1.9 X10*3/uL (1.2-4.9); Lymphocytes Percent Auto 12.3 % (20-40); Mean Corpuscular HGB Conc 32.7 g/dl (31.0-36.0); Mean Corpuscular Volume 94.6 fL (80.0-98.0); Mean Platelet Volume 9.1 fL (9.4-12.4); Monocytes Absolute Auto 1.1 X10*3/uL (0.1-1.2); Monocytes Percent Auto 6.8 % (2-11); Neutrophils Absolute Auto 11.7 x10*3/uL (2.0-8.3); Platelet Count 579 X10*3/uL (160-400); Red Blood Count 3.55 X10*6/uL (4.60-5.80); Red Cell Distribution Width 12.8 % (11.0-16.0); White Blood Count 15.4 X10*3/uL (4.8-10.8)
[2024-11-09 05:31] LABS: Alanine Aminotransferase 15 U/L (0-40); Albumin Level 2.7 g/dL (3.5-5.0); Alkaline Phosphatase 55 U/L (39-117); Anion Gap 11 (12-20); Aspartate Amino Transferase 48 U/L (5-37); Bilirubin Total 0.3 mg/dL (0.0-1.0); Blood Urea Nitrogen 8 mg/dL (9-16); Calcium 8.4 mg/dL (8.4-10.2); Carbon Dioxide 27 mmol/L (22-29); Chloride 107 mmol/L (96-108); Creatinine Clr Calc Pharmacy 114.6; Estimated Glomerular Filt Rate > 60; Glucose Random 136 mg/dL (60-115); Magnesium 2.1 mg/dL (1.6-2.6); Phosphorus 3.4 mg/dL (2.7-4.5); Potassium 3.5 mmol/L (3.3-5.1); Sodium 141 mmol/L (135-145); Total Protein 6.2 g/dL (6.5-8.0)
[2024-11-09] MEDS: Pantoprazole Sodium 40 MG/10 ML VIAL IVPUSH (05:40)
--- NOTE | 2024-11-09 08:54 | P.PNCC_ITS ---
Subjective Subjective Date of Service: 11/09/24 Critical Care Time (minutes): 35 Comment: No new events overnight Remains on ventilator support Physical Exam 2 Vital Signs: Vital Signs: Last Vital Signs Temp 100.6 F H 11/09/24 08:00 Pulse 81 11/09/24 08:00 Resp 16 11/09/24 08:00 BP 110/59 L 11/09/24 08:00 Pulse Ox 95 11/09/24 08:00 O2 Del Method Mechanical Ventil ation 11/09/24 08:00 O2 Flow Rate 55 11/06/24 00:00 FiO2 60 11/09/24 08:23 BMI result Body Mass Index 24.9 General: Patient is in acute distress, ill appearing and tired appearing Nutritional Appearance: well nourished and normal weight Eyes: appearance normal, both eyes and all related structures; Alignment and Position: alignment normal and position normal Neck: No lymphadenopathy, no thyromegaly Resp: bilateral air entry equal, breath sounds better in the right lung, occasional crackles in the left Cardio: Regular rate, regular rhythm; Heart sounds: S1 normal heart sound present and S2 normal heart sound present GI: soft, nontender, no guarding, no hepatosplenomegaly : bladder normal to inspection, bladder normal to palpation, no renal angle tenderness Skin: no rashes or lesions noted and elasticity normal Neuro: Sedated, no focal deficits and moves all extremities Objective Data Labs 11/09/24 04:37 11/09/24 04:37 Labs: Laboratory Results - last 24 hr 11/08/24 11/08/24 11/08/24 11:52 12:53 18:21 WBC RBC Hgb Hct MCV MCH MCHC RDW Plt Count MPV Immature Gran % (Auto) Neut % (Auto) Lymph % (Auto) [place] % (Auto) Eos % (Auto) Baso % (Auto) Lymph # (Auto) [place] # (Auto) Eos # (Auto) Baso # (Auto) Abs Immat Gran (auto) Absolute Neuts (auto) Absolute Nucleated RBC Nucleated RBC % (auto) VBG pH VBG pCO2 VBG pO2 VBG HCO3 VBG O2 Saturation VBG Base Excess Sodium Potassium Chloride Carbon Dioxide Anion Gap BUN Creatinine Estim Creat Clear Calc Estimated GFR POC Glucose 89 103 Random Glucose Calcium Phosphorus Magnesium Total Bilirubin AST ALT Alkaline Phosphatase Total Protein Albumin Random Vancomycin 12.8 L 11/08/24 11/09/24 11/09/24 23:53 04:32 04:37 WBC 15.4 H RBC 3.55 L Hgb 11.0 L Hct 33.6 L MCV 94.6 MCH 31.0 MCHC 32.7 RDW 12.8 Plt Count 579 H MPV 9.1 L Immature Gran % (Auto) 1.2 H Neut % (Auto) 76.0 H Lymph % (Auto) 12.3 L [place] % (Auto) 6.8 Eos % (Auto) 3.4 Baso % (Auto) 0.3 Lymph # (Auto) 1.9 [place] # (Auto) 1.1 Eos # (Auto) 0.5 H Baso # (Auto) 0.0 Abs Immat Gran (auto) 0.18 H Absolute Neuts (auto) 11.7 H Absolute Nucleated RBC 0.000 Nucleated RBC % (auto) 0.0 VBG pH 7.41 VBG pCO2 52 VBG pO2 63 VBG HCO3 34 H VBG O2 Saturation 92.0 VBG Base Excess 8.1 Sodium 141 Potassium 3.5 Chloride 107 Carbon Dioxide 27 Anion Gap 11 L BUN 8 L Creatinine 0.73 Estim Creat Clear Calc 114.6 Estimated GFR > 60 POC Glucose 130 H Random Glucose 136 H Calcium 8.4 Phosphorus 3.4 Magnesium 2.1 Total Bilirubin 0.3 AST 48 H ALT 15 Alkaline Phosphatase 55 Total Protein 6.2 L Albumin 2.7 L Random Vancomycin Microbiology Microbiology Results: Microbiology 11/06/24 14:30 Bronchial Washings Fungal Identification - Preliminary No growth to date. 11/06/24 18:04 Blood - Subclavian Blood Culture - Preliminary No growth after 48 hours. 11/06/24 18:04 Blood - Subclavian Blood Culture - Preliminary No growth after 48 hours. 11/06/24 14:30 Bronchial Washings Gram Stain - Final 11/06/24 14:30 Bronchial Washings Routine Culture - Final No growth after 2 days 11/06/24 01:18 Sputum - Induced Gram Stain - Final 11/06/24 01:18 Sputum - Induced Sputum Culture - Final 11/04/24 22:41 Blood - Venous Blood Culture - Preliminary No growth after 48 hours. 11/04/24 22:26 Blood - Venous Blood Culture - Preliminary No growth after 48 hours. Progress Note: A&P Assessment and plan (1) Acute encephalopathy: Status: Acute (2) Lung mass: Status: Acute (3) Acute hypoxemic respiratory failure: Status: Acute Plan Neuro: Acute encephalopathy possibly due to metabolic encephalopathy On propofol and Versed for sedation, as needed fentanyl for analgesia; will we will switch Versed to Precedex to slowly wake him up Nimbex for paralysis has been turned off Close neurological status monitoring in the ICU every hour Cardiac: Blood pressure stable Respiratory: Acute hypoxemic respiratory failure due to complete atelectasis of the right lung due to postobstructive pneumonia and possibly pneumonia in the left lung CT chest showing a 4 cm endobronchial lesion obstructing the right mainstem along with a mass in the right lung. Biopsy pathology results pending, once we have the results we will consult Heme-Onc. Currently on ventilator support and very poor PF ratios On PRVC mode FiO2 down to 40%, PEEP 6, TV 350, RR 16, improving vent settings, CXR shows improved aeration in the right lung. Peak pressures and plateau pressures are under the curve Ventilator management bundle with head end elevation, aspiration precaution, chlorhexidine mouthwash, daily awakening trials, daily spontaneous breathing trials Not a candidate for extubation at due to very high vent settings GI: on tube feeds Renal: Baseline creatinine normal We will closely monitor I's and O's Avoid nephrotoxic medications Heme: Chronic anemia, closely monitor H&H, transfuse for hemoglobin less than 7 grams/deciliter Endocrine: Blood sugars under control Sliding scale insulin as needed Infectious disease: Pancultures negative so far Leukocytosis improving On vanc and Zosyn for empiric coverage Musculoskeletal: Decubitus ulcer prevention protocol Lines: Peripheral Prophylaxis: SCD, pantoprazole Quality Stroke Does the patient have a stroke diagnosis?: No VTE Prior VTE?: No VTE Risk Level:: Medical - moderate - high VTE Device Contraindication: Treatment Not Indicated VTE Drug Contraindication: N/A - Med Ordered
[2024-11-09] MEDS: 0.9 % Sodium Chloride Flush 3 ML SYRINGE IVFLUSH ×3 (09:43→22:59)
[2024-11-09] MEDS: Chlorhexidine Gluc Oral Rinse 15 ML MOUTHWASH BUCCAL ×3 (09:53→21:56)
--- NOTE | 2024-11-09 10:42 | MHC.CLN ---
PT REQUIRES TF FOR NUTRITION SUPPORT R/T PROLONGED NPO STATUS PT IS INTUBATED AND SEDATED CURRENTLY RECEIVING JEVITY 1.0 AT 50ML/HR PROVIDES 1272 (1664KCALS WITH SEDATION; 25KCALS/KG), 53G PROTEIN, 1002ML FREE WATER FROM FORMULA PT WITH INCREASED NUTRITION NEEDS R/T VENT SUPPORT AND NEW UPPER LUNG MASS RECOMMEND SWITCHING TF FORMULA TO PROMOTE AT MAX GOAL RATE 70ML/HR WITH 240ML FREE WATER FLUSHES Q 8 HRS TO PROVIDE 1680KCALS (2072KCALS WITH SEDATION; 30.6KCALS/KG), 105G PROTEIN (1.5G/KG), 2129ML TOTAL WATER FROM FORMULA AND FLUSHES (31ML/KG) MONITOR TOLERANCE AND LYTES SEE ALSO FULL CLINICAL NUTRITION ASSESSMENT
[2024-11-09] MEDS: dexmedeTOMIDidine HCL/NS 400 MCG/100 ML INFUS..BTL 16.95 MCG IVCONT ×3 (12:20→21:55)
[2024-11-09 13:44] LABS: Vancomycin Trough 9.3 mcg/mL (10.0-20.0)
--- NOTE | 2024-11-09 13:52 | MHC.CM.PN ---
Pt continues on ventilatory support in ICU: Pt with noted bronchus tumor - plans for the day include reduction of sedation for extubation attempt: Pt initially from home w/no services or DME. Unknown what pt may need: dependent on clinical progress. CM to follow daily for modification of d/c plan.
--- NOTE | 2024-11-09 13:56 | HE.PHANOTE ---
Re Vanc Random was 9.3mg/L but calculated AUC is 481 mg/L. This is within AUC range of 400-600 mg/L, will continue regimen despite lower trough as AUC is in goal. Will get another level tomorrow to determine if dose increase needed.
[2024-11-09 14:08] LABS: Glucose, Whole Blood 123 mg/dL (60-115)
[2024-11-09] MEDS: Norepinephrine Bitartrate/D5W 8 MG/250 ML PLAST..BAG 12.77 MG IVCONT (17:09)
[2024-11-09 18:27] LABS: Glucose, Whole Blood 150 mg/dL (60-115)
[2024-11-10] VITALS (40 sets, daily range): BP systolic 94–144; BP diastolic 52–81; PULSE 63–87; RESP 4–20; TEMP 34.6–38.4; O2SAT 85–96
[2024-11-10] MEDS: Piperacillin Sodium/Tazobactam 4.5 GM in 0.9 % Sodium Chloride 100 ML IV ×4 (00:20→17:21)
[2024-11-10] MEDS: propofoL 1,000 MG/100 ML VIAL 11.14 MG IVCONT ×2 (01:02→19:44)
[2024-11-10] MEDS: vancomycin HCL 1,250 MG in 0.9 % Sodium Chloride 250 ML 166.67 MG IV (02:28)
[2024-11-10] MEDS: dexmedeTOMIDidine HCL/NS 400 MCG/100 ML INFUS..BTL 16.95 MCG IVCONT ×4 (03:31→20:55)
[2024-11-10 05:53] LABS: VBG Base Excess 10.3 mmol/L; VBG HCO3 33 mmol/L (22-26); VBG pCO2 40 mmHg; VBG pH 7.53 (7.32-7.43); VBG pO2 57 mmHg
[2024-11-10 05:59] LABS: MANUAL DIFF FLAG NO
[2024-11-10 06:09] LABS: Venous Blood Gas Refer to POC result
[2024-11-10] MEDS: Pantoprazole Sodium 40 MG/10 ML VIAL IVPUSH (06:13)
[2024-11-10 06:21] LABS: Basophils Absolute Auto 0.1 X10*3/uL (0.0-0.2); Basophils Percent Auto 0.3 % (0-2); Eosinophils Absolute Auto 0.5 X10*3/uL (0.0-0.4); Eosinophils Percent Auto 3.4 % (0-4); Hematocrit 36.7 % (42.0-52.0); Hemoglobin 12.1 g/dl (14.0-18.0); Imm Gran Abs Auto 0.24 X10*3/uL (0.00-0.03); Imm Gran Pct Auto 1.6 % (0.0-0.4); Lymphocytes Absolute Auto 1.4 X10*3/uL (1.2-4.9); Lymphocytes Percent Auto 9.3 % (20-40); Mean Corpuscular Hemoglobin 30.2 pg (27.0-33.0); Mean Corpuscular Volume 91.5 fL (80.0-98.0); Monocytes Absolute Auto 1.2 X10*3/uL (0.1-1.2); Monocytes Percent Auto 7.5 % (2-11); Neutrophils Absolute Auto 11.9 x10*3/uL (2.0-8.3); Neutrophils Percent Auto 77.9 % (45-73); Platelet Count 599 X10*3/uL (160-400); Red Blood Count 4.01 X10*6/uL (4.60-5.80); Red Cell Distribution Width 12.5 % (11.0-16.0); White Blood Count 15.3 X10*3/uL (4.8-10.8)
[2024-11-10 06:26] LABS: Albumin Level 2.7 g/dL (3.5-5.0); Anion Gap 10 (12-20); Blood Urea Nitrogen 5 mg/dL (9-16); Calcium 8.7 mg/dL (8.4-10.2); Carbon Dioxide 29 mmol/L (22-29); Chloride 106 mmol/L (96-108); Creatinine Clr Calc Pharmacy 130.7; Estimated Glomerular Filt Rate > 60; Glucose Random 130 mg/dL (60-115); Phosphorus 3.1 mg/dL (2.7-4.5); Potassium 3.8 mmol/L (3.3-5.1); Sodium 141 mmol/L (135-145)
[2024-11-10] MEDS: 0.9 % Sodium Chloride Flush 3 ML SYRINGE IVFLUSH ×2 (07:28→15:20)
[2024-11-10] MEDS: Chlorhexidine Gluc Oral Rinse 15 ML MOUTHWASH BUCCAL ×3 (07:30→20:10)
[2024-11-10] MEDS: Albumin Human 25 % 100 ML IV ×2 (07:33→08:36)
--- NOTE | 2024-11-10 08:57 | PM.CCPN ---
Subjective Subjective Date of Service: 11/10/24 Critical Care Time (minutes): 35 Comment: Continues to be on ventilator support Slowly titrating down propofol and fentanyl drips coughing spell with hemoptysis followed by increased oxygen requirement on the vent Physical Exam Vital Signs: Vital Signs: Last Vital Signs Temp 100.8 F H 11/10/24 08:00 Pulse 86 11/10/24 08:36 Resp 20 11/10/24 08:00 BP 119/77 11/10/24 08:36 Pulse Ox 85 L 11/10/24 08:00 O2 Del Method Mechanical Ventil ation 11/10/24 08:00 O2 Flow Rate 55 11/06/24 00:00 FiO2 70 11/10/24 08:22 BMI result Body Mass Index 24.9 General: Middle-aged male in acute distress, ill appearing and tired appearing Nutritional Appearance: well nourished and normal weight Eyes: appearance normal, both eyes and all related structures; Alignment and Position: alignment normal and position normal Neck: No lymphadenopathy, no thyromegaly Resp: bilateral air entry equal, crackles heard in the left lung and also in the right lung Cardio: Regular rate, regular rhythm; Heart sounds: S1 normal heart sound present and S2 normal heart sound present GI: soft, nontender, no guarding, no hepatosplenomegaly : bladder normal to inspection, bladder normal to palpation, no renal angle tenderness Skin: no rashes or lesions noted and elasticity normal Neuro: No focal deficits, moves all extremities Objective Data Labs 11/10/24 05:47 11/10/24 05:47 Labs: Laboratory Results - last 24 hr 11/09/24 11/09/24 11/09/24 12:56 13:51 18:23 WBC RBC Hgb Hct MCV MCH MCHC RDW Plt Count MPV Immature Gran % (Auto) Neut % (Auto) Lymph % (Auto) [place] % (Auto) Eos % (Auto) Baso % (Auto) Lymph # (Auto) [place] # (Auto) Eos # (Auto) Baso # (Auto) Abs Immat Gran (auto) Absolute Neuts (auto) Absolute Nucleated RBC Nucleated RBC % (auto) VBG pH VBG pCO2 VBG pO2 VBG HCO3 VBG O2 Saturation VBG Base Excess Sodium Potassium Chloride Carbon Dioxide Anion Gap BUN Creatinine Estim Creat Clear Calc Estimated GFR POC Glucose 123 H 150 H Random Glucose Calcium Phosphorus Magnesium Albumin Vancomycin Trough 9.3 L 11/10/24 11/10/24 05:41 05:47 WBC 15.3 H RBC 4.01 L Hgb 12.1 L Hct 36.7 L MCV 91.5 MCH 30.2 MCHC 33.0 RDW 12.5 Plt Count 599 H MPV 9.0 L Immature Gran % (Auto) 1.6 H Neut % (Auto) 77.9 H Lymph % (Auto) 9.3 L [place] % (Auto) 7.5 Eos % (Auto) 3.4 Baso % (Auto) 0.3 Lymph # (Auto) 1.4 [place] # (Auto) 1.2 Eos # (Auto) 0.5 H Baso # (Auto) 0.1 Abs Immat Gran (auto) 0.24 H Absolute Neuts (auto) 11.9 H Absolute Nucleated RBC 0.000 Nucleated RBC % (auto) 0.0 VBG pH 7.53 H VBG pCO2 40 VBG pO2 57 VBG HCO3 33 H VBG O2 Saturation 91.0 VBG Base Excess 10.3 Sodium 141 Potassium 3.8 Chloride 106 Carbon Dioxide 29 Anion Gap 10 L BUN 5 L Creatinine 0.64 Estim Creat Clear Calc 130.7 Estimated GFR > 60 POC Glucose Random Glucose 130 H Calcium 8.7 Phosphorus 3.1 Magnesium 2.0 Albumin 2.7 L Vancomycin Trough Microbiology Microbiology Results: Microbiology 11/04/24 22:41 Blood - Venous Blood Culture - Final No growth after 5 days. 11/04/24 22:26 Blood - Venous Blood Culture - Final No growth after 5 days. 11/06/24 14:30 Bronchial Washings Direct Acid Fast Bacilli Smear - Final 11/06/24 14:30 Bronchial Washings Fungal Identification - Preliminary No growth to date. 11/06/24 18:04 Blood - Subclavian Blood Culture - Preliminary No growth after 48 hours. 11/06/24 18:04 Blood - Subclavian Blood Culture - Preliminary No growth after 48 hours. 11/06/24 14:30 Bronchial Washings Gram Stain - Final 11/06/24 14:30 Bronchial Washings Routine Culture - Final No growth after 2 days 11/06/24 01:18 Sputum - Induced Gram Stain - Final 11/06/24 01:18 Sputum - Induced Sputum Culture - Final Progress Note: A&P Assessment and plan (1) Lung mass: Status: Acute (2) Acute hypoxemic respiratory failure: Status: Acute (3) Acute encephalopathy: Status: Acute Plan Neuro: Acute encephalopathy possibly due to metabolic encephalopathy Lowering the dose of propofol for weaning from ventilation, fentanyl doses has also been decreased Versed drip Nimbex for paralysis has been turned off Close neurological status monitoring in the ICU every hour Cardiac: Blood pressure stable Respiratory: Acute hypoxemic respiratory failure due to complete atelectasis of the right lung due to postobstructive pneumonia and possibly pneumonia in the left lung CT chest showing a 4 cm endobronchial lesion obstructing the right mainstem along with a mass in the right lung. Biopsy pathology results pending, once we have the results we will consult Heme-Onc. Currently on ventilator support and very poor PF ratios On PRVC mode FiO2 down to 50%, PEEP 6, TV 350, RR 16, improving vent settings, CXR shows improved aeration in the right lung. Peak pressures and plateau pressures are under the curve Ventilator management bundle with head end elevation, aspiration precaution, chlorhexidine mouthwash, daily awakening trials, daily spontaneous breathing trials increase in oxygen requirement secondary to hemoptysis an hour ago, currently on FiO2 70%, so will hold off on extubation GI: on tube feeds Renal: Baseline creatinine normal We will closely monitor I's and O's Avoid nephrotoxic medications Heme: Chronic anemia, closely monitor H&H, transfuse for hemoglobin less than 7 grams/deciliter Endocrine: Blood sugars under control Sliding scale insulin as needed Infectious disease: Pancultures negative so far Leukocytosis improving On vanc and Zosyn for empiric coverage Musculoskeletal: Decubitus ulcer prevention protocol Lines: Peripheral Prophylaxis: SCD, pantoprazole Quality Stroke Does the patient have a stroke diagnosis?: No VTE Prior VTE?: No VTE Risk Level:: Medical - moderate - high VTE Device Contraindication: Treatment Not Indicated VTE Drug Contraindication: N/A - Med Ordered
--- NOTE | 2024-11-10 10:22 | MHC.CM.PN ---
Pt did not respond to sedation reduction: O2 demands higher: no plans for extubation today.
--- NOTE | 2024-11-10 10:50 | MHC.CLN ---
F/U PT REMAINS INTUBATED AND SEDATED CURRENTLY RECEIVING PROMOTE AT MAX GOAL RATE 70ML/HR WITH 240ML FREE WATER FLUSHES Q 8 HRS PROVIDES 1680KCALS (1876KCALS WITH SEDATION; 28KCALS/KG), 105G PROTEIN (1.5G/KG), 2129ML TOTAL WATER FROM FORMULA AND FLUSHES (31ML/KG) MONITOR TOLERANCE AND LYTES
[2024-11-10] MEDS: propofoL 1,000 MG/100 ML VIAL 7.43 MG IVCONT (11:00)
[2024-11-10 12:38] LABS: Glucose, Whole Blood 119 mg/dL (60-115)
[2024-11-10] MEDS: Acetaminophen 325 MG TABLET 650 MG PO (13:31)
[2024-11-10] MEDS: fentaNYL citrate/NS 1,000 MCG/100 ML PLAST..BAG 10 MCG IVCONT (14:11)
[2024-11-10] MEDS: vancomycin HCL 1,500 MG in 0.9 % Sodium Chloride 500 ML 333.33 MG IV (15:20)
--- NOTE | 2024-11-10 15:24 | HE.PHANOTE ---
RE: VANCO DOSING Trough came back as 9 mg/L and by linear kinetics, AUC is 476 mg/L hr. Dose is increased to 1500 mg q12h with predicted AUC = 498 (actual AUC will probably be higher) and trough 9.3. Next trough is scheduled for 11/11/24 @1300.
[2024-11-10 18:05] LABS: Glucose, Whole Blood 126 mg/dL (60-115)
[2024-11-11] VITALS (47 sets, daily range): BP systolic 95–168; BP diastolic 53–109; PULSE 70–132; RESP 15–39; TEMP 34.8–38.7; O2SAT 91–98
[2024-11-11] MEDS: Piperacillin Sodium/Tazobactam 4.5 GM in 0.9 % Sodium Chloride 100 ML IV ×5 (00:06→23:38)
[2024-11-11] MEDS: 0.9 % Sodium Chloride Flush 3 ML SYRINGE IVFLUSH ×4 (00:06→22:35)
[2024-11-11 00:24] LABS: Glucose, Whole Blood 95 mg/dL (60-115)
[2024-11-11] MEDS: propofoL 1,000 MG/100 ML VIAL 11.14 MG IVCONT ×2 (01:11→09:39)
[2024-11-11] MEDS: fentaNYL citrate/NS 1,000 MCG/100 ML PLAST..BAG 7.5 MCG IVCONT (02:52)
[2024-11-11] MEDS: dexmedeTOMIDidine HCL/NS 400 MCG/100 ML INFUS..BTL 16.95 MCG IVCONT ×2 (02:53→08:51)
[2024-11-11] MEDS: vancomycin HCL 1,500 MG in 0.9 % Sodium Chloride 500 ML 333.33 MG IV (03:02)
[2024-11-11 05:28] LABS: VBG Base Excess 7.5 mmol/L; VBG HCO3 30 mmol/L (22-26); VBG pCO2 36 mmHg; VBG pH 7.52 (7.32-7.43); VBG pO2 66 mmHg
[2024-11-11 05:29] LABS: Venous Blood Gas Refer to POC result
[2024-11-11 05:37] LABS: MANUAL DIFF FLAG NO
[2024-11-11 05:38] LABS: Basophils Percent Auto 0.2 % (0-2); Eosinophils Absolute Auto 0.6 X10*3/uL (0.0-0.4); Eosinophils Percent Auto 4.2 % (0-4); Hematocrit 33.2 % (42.0-52.0); Imm Gran Abs Auto 0.23 X10*3/uL (0.00-0.03); Imm Gran Pct Auto 1.6 % (0.0-0.4); Lymphocytes Absolute Auto 1.6 X10*3/uL (1.2-4.9); Lymphocytes Percent Auto 11.4 % (20-40); Mean Corpuscular HGB Conc 33.1 g/dl (31.0-36.0); Mean Corpuscular Hemoglobin 30.5 pg (27.0-33.0); Monocytes Absolute Auto 1.2 X10*3/uL (0.1-1.2); Monocytes Percent Auto 8.8 % (2-11); Neutrophils Absolute Auto 10.3 x10*3/uL (2.0-8.3); Neutrophils Percent Auto 73.8 % (45-73); Platelet Count 550 X10*3/uL (160-400); Red Blood Count 3.61 X10*6/uL (4.60-5.80); Red Cell Distribution Width 12.8 % (11.0-16.0)
[2024-11-11 05:52] LABS: Anion Gap 10 (12-20); Blood Urea Nitrogen 8 mg/dL (9-16); Calcium 8.7 mg/dL (8.4-10.2); Carbon Dioxide 27 mmol/L (22-29); Chloride 107 mmol/L (96-108); Estimated Glomerular Filt Rate > 60; Glucose Random 114 mg/dL (60-115); Phosphorus 3.3 mg/dL (2.7-4.5); Potassium 3.8 mmol/L (3.3-5.1); Sodium 140 mmol/L (135-145)
[2024-11-11] MEDS: Chlorhexidine Gluc Oral Rinse 15 ML MOUTHWASH BUCCAL (07:45)
--- NOTE | 2024-11-11 08:57 | P.PNCC_ITS ---
Subjective Subjective Date of Service: 11/11/24 Critical Care Time (minutes): 35 Comment: Patient dickens had some episodes of coughing and hemoptysis Remains on 60% FiO2 on the ventilator Physical Exam 2 Vital Signs: Vital Signs: Last Vital Signs Temp 99.0 F 11/11/24 08:00 Pulse 74 11/11/24 08:51 Resp 20 11/11/24 08:00 BP 106/68 11/11/24 08:51 Pulse Ox 92 11/11/24 08:00 O2 Del Method Mechanical Ventil ation 11/11/24 08:00 O2 Flow Rate 55 11/06/24 00:00 FiO2 60 11/11/24 08:00 Oxygen Flow Rate 70 11/10/24 15:00 BMI result Body Mass Index 24.9 General: Middle-aged male, critically ill, lying unresponsive connected to the ventilator Nutritional Appearance: well nourished and overweight Eyes: appearance normal, both eyes and all related structures; Alignment and Position: alignment normal and position normal Neck: No lymphadenopathy, no thyromegaly Resp: bilateral air entry equal, crackles heard in the right lung Cardio: Regular rate, regular rhythm; Heart sounds: S1 normal heart sound present and S2 normal heart sound present GI: soft, nontender, no guarding, no hepatosplenomegaly : bladder normal to inspection, bladder normal to palpation, no renal angle tenderness Skin: no rashes or lesions noted and elasticity normal Neuro: Sedated, no focal deficits and moves all extremities Objective Data Labs 11/11/24 05:23 11/11/24 05:23 Labs: Laboratory Results - last 24 hr 11/10/24 11/10/24 11/10/24 12:35 13:40 18:01 WBC RBC Hgb Hct MCV MCH MCHC RDW Plt Count MPV Immature Gran % (Auto) Neut % (Auto) Lymph % (Auto) [place] % (Auto) Eos % (Auto) Baso % (Auto) Lymph # (Auto) [place] # (Auto) Eos # (Auto) Baso # (Auto) Abs Immat Gran (auto) Absolute Neuts (auto) Absolute Nucleated RBC Nucleated RBC % (auto) VBG pH VBG pCO2 VBG pO2 VBG HCO3 VBG O2 Saturation VBG Base Excess Sodium Potassium Chloride Carbon Dioxide Anion Gap BUN Creatinine Estim Creat Clear Calc Estimated GFR POC Glucose 119 H 126 H Random Glucose Calcium Phosphorus Magnesium Albumin Random Vancomycin 9.0 L 11/11/24 11/11/24 11/11/24 00:19 05:17 05:23 WBC 14.0 H RBC 3.61 L Hgb 11.0 L Hct 33.2 L MCV 92.0 MCH 30.5 MCHC 33.1 RDW 12.8 Plt Count 550 H MPV 9.0 L Immature Gran % (Auto) 1.6 H Neut % (Auto) 73.8 H Lymph % (Auto) 11.4 L [place] % (Auto) 8.8 Eos % (Auto) 4.2 H Baso % (Auto) 0.2 Lymph # (Auto) 1.6 [place] # (Auto) 1.2 Eos # (Auto) 0.6 H Baso # (Auto) 0.0 Abs Immat Gran (auto) 0.23 H Absolute Neuts (auto) 10.3 H Absolute Nucleated RBC 0.000 Nucleated RBC % (auto) 0.0 VBG pH 7.52 H VBG pCO2 36 VBG pO2 66 VBG HCO3 30 H VBG O2 Saturation 94.0 VBG Base Excess 7.5 Sodium 140 Potassium 3.8 Chloride 107 Carbon Dioxide 27 Anion Gap 10 L BUN 8 L Creatinine 0.62 Estim Creat Clear Calc 135.0 Estimated GFR > 60 POC Glucose 95 Random Glucose 114 Calcium 8.7 Phosphorus 3.3 Magnesium 2.0 Albumin 3.0 L Random Vancomycin Microbiology Microbiology Results: Microbiology 11/04/24 22:41 Blood - Venous Blood Culture - Final No growth after 5 days. 11/04/24 22:26 Blood - Venous Blood Culture - Final No growth after 5 days. 11/06/24 14:30 Bronchial Washings Direct Acid Fast Bacilli Smear - Final 11/06/24 14:30 Bronchial Washings Fungal Identification - Preliminary No growth to date. 11/06/24 18:04 Blood - Subclavian Blood Culture - Preliminary No growth after 48 hours. 11/06/24 18:04 Blood - Subclavian Blood Culture - Preliminary No growth after 48 hours. 11/06/24 14:30 Bronchial Washings Gram Stain - Final 11/06/24 14:30 Bronchial Washings Routine Culture - Final No growth after 2 days 11/06/24 01:18 Sputum - Induced Gram Stain - Final 11/06/24 01:18 Sputum - Induced Sputum Culture - Final Progress Note: A&P Assessment and plan (1) Acute encephalopathy: Status: Acute (2) Lung mass: Status: Acute (3) Acute hypoxemic respiratory failure: Status: Acute Plan Neuro: Acute encephalopathy possibly due to metabolic encephalopathy Lowering the dose of propofol (30) for weaning from ventilation, fentanyl (75) doses has also been decreased Versed drip Nimbex for paralysis has been turned off Close neurological status monitoring in the ICU every hour Cardiac: Blood pressure stable, off levophed support Respiratory: Acute hypoxemic respiratory failure due to complete atelectasis of the right lung due to postobstructive pneumonia and possibly pneumonia in the left lung CT chest showing a 4 cm endobronchial lesion obstructing the right mainstem along with a mass in the right lung. Biopsy pathology results pending, once we have the results we will consult Heme-Onc. Currently on ventilator support and very poor PF ratios On PRVC mode FiO2 60%, PEEP 6, TV 350, RR 16, improving vent settings, CXR shows improved aeration in the right lung. Peak pressures and plateau pressures are under the curve Ventilator management bundle with head end elevation, aspiration precaution, chlorhexidine mouthwash, daily awakening trials, daily spontaneous breathing trials Episodes of hemoptysis and coughing GI: on tube feeds Renal: creatinine normal We will closely monitor I's and O's Avoid nephrotoxic medications Heme: Chronic anemia, closely monitor H&H, transfuse for hemoglobin less than 7 grams/deciliter Endocrine: Blood sugars under control Sliding scale insulin as needed Infectious disease: Pancultures negative so far Leukocytosis improving, WBC count down to 14,000 On vanc and Zosyn for empiric coverage Musculoskeletal: Decubitus ulcer prevention protocol Lines: Peripheral Prophylaxis: SCD, pantoprazole Quality Stroke Does the patient have a stroke diagnosis?: No VTE Prior VTE?: No VTE Risk Level:: Medical - moderate - high VTE Device Contraindication: Treatment Not Indicated VTE Drug Contraindication: N/A - Med Ordered
[2024-11-11] MEDS: Metoclopramide HCl 10 MG/2 ML VIAL IVPUSH (09:32)
[2024-11-11] MEDS: Milk of Magnesia 30 ML ORAL.SUSP PO (09:47)
--- NOTE | 2024-11-11 10:10 | PC.RT ---
RT notified MD that pt has a cuff leak. MD would like to attempt SAT/SBT and attempt extubation. If pt does not renata, will exchange tube. PT resting comfortable at this time, SATs >90%, will continue to monitor.
--- NOTE | 2024-11-11 11:12 | MHC.CLN ---
F/U PT REMAINS INTUBATED AND SEDATED DISCUSSED AT ROUNDS WITH MD [place] ON HOLD R/T VOMITING ON 11/10 AND 11/11 PLAN TO RE-START TF AT 10ML/HR TRICKLE FEED MD TO ADD REGLAN WHEN ABLE ADVANCE PROMOTE TO MAX GOAL RATE 70ML/HR WITH 240ML FREE WATER FLUSHES Q 8 HRS TO PROVIDE 1680KCALS (1974KCALS WITH SEDATION; 29KCALS/KG), 105G PROTEIN (1.5G/KG), 2129ML TOTAL WATER FROM FORMULA AND FLUSHES (31ML/KG) MONITOR TOLERANCE AND LYTES
[2024-11-11] MEDS: Acetaminophen 325 MG TABLET 650 MG PO (11:23)
[2024-11-11 13:09] LABS: Glucose, Whole Blood 108 mg/dL (60-115)
--- NOTE | 2024-11-11 13:43 | PC.RT ---
pt control extubated by RT w/ RN at [facility]. Pt completed SBT beginging at 1030 am. PT had positive cuff leak prior to extubation. ETT was pulled out w/ cuff deflated. Pt has rhonchirous breath sounds bilateral, no stridor noted. Pt able to voice quietly, has weak cough. Pt on HFNC 50L/60% at this time, renata well. Will continue to monitor.
--- NOTE | 2024-11-11 13:46 | PC.NURSE ---
sedation vacation started at 1010. patient placed on psv at approx 1200. pt had several coughing episodes but no blood noted in secretions. MD ordered extubation which was performed with RT at bedside at 1338. pt given oral suction. pt placed on hfnc 50L @ 60%. pt was provided with suction to manage their secretions.
--- NOTE | 2024-11-11 13:49 | MHC.CM.PN ---
Pt remains on ventilatory support: one episode of hemoptysis on 11/10: no plans to extubate pt. CX and BX of bronchus mass pending. CM to follow
[2024-11-11] MEDS: Albuterol Sulfate (0.083%) 2.5 MG/3 ML VIAL.NEB INHALE ×2 (13:50→16:51)
[2024-11-11 14:33] LABS: Vancomycin Random 11.4 mcg/mL (15-20)
[2024-11-11] MEDS: vancomycin HCL 1,000 MG in 0.9 % Sodium Chloride 250 ML 270 MG IV ×2 (14:51→22:34)
[2024-11-11] MEDS: fentaNYL citrate/PF 100 MCG/2 ML VIAL 50 MCG IVPUSH ×3 (15:11→23:57)
[2024-11-11] MEDS: methylPREDNISolone Sod Succ 125 MG/2 ML VIAL 80 MG IVPUSH (15:16)
--- NOTE | 2024-11-11 18:06 | ECG_ITS ---
Test Reason : chest pain Blood Pressure : */* mmHG Vent. Rate : 124 BPM Atrial Rate : 124 BPM P-R Int : 130 ms QRS Dur : 78 ms QT Int : 312 ms P-R-T Axes : 44 56 43 degrees QTcB Int : 448 ms Sinus tachycardia Otherwise normal ECG When compared with ECG of 04-Nov-2024 21:40, T wave amplitude has decreased in Inferior leads Referred By: Felix Chapin Electronically Signed By: MAGDY LEYVA
[2024-11-11] MEDS: Ketorolac Tromethamine 30 MG/ML VIAL 20 MG IM (18:29)
[2024-11-11] MEDS: methylPREDNISolone Sod Succ 125 MG/2 ML VIAL 60 MG IVPUSH (20:02)
[2024-11-11] MEDS: Midazolam HCl 2 MG/2 ML VIAL 1 MG IVPUSH (20:16)
[2024-11-11] MEDS: Acetaminophen 1,000 MG/100 ML PIGGYBACK 400 MG IV (21:21)
[2024-11-11] MEDS: Ketorolac Tromethamine 15 MG/ML VIAL IVPUSH (22:31)
[2024-11-12] VITALS (36 sets, daily range): BP systolic 119–163; BP diastolic 72–109; PULSE 72–135; RESP 16–37; TEMP 36.5–38; O2SAT 90–98
[2024-11-12 00:17] LABS: Glucose, Whole Blood 131 mg/dL (60-115)
--- NOTE | 2024-11-12 00:46 | ECG_ITS ---
Test Reason : chest pressure Blood Pressure : */* mmHG Vent. Rate : 116 BPM Atrial Rate : 116 BPM P-R Int : 116 ms QRS Dur : 76 ms QT Int : 316 ms P-R-T Axes : * 61 14 degrees QTcB Int : 439 ms Sinus tachycardia Otherwise normal ECG When compared with ECG of 11-Nov-2024 18:17, No significant changes seen Referred By: Florida Simmons Electronically Signed By: MAGDY LEYVA
[2024-11-12] MEDS: Albuterol Sulfate (0.083%) 2.5 MG/3 ML VIAL.NEB INHALE (01:04)
[2024-11-12] MEDS: fentaNYL citrate/PF 100 MCG/2 ML VIAL 50 MCG IVPUSH ×5 (01:48→22:37)
[2024-11-12] MEDS: methylPREDNISolone Sod Succ 125 MG/2 ML VIAL 60 MG IVPUSH ×4 (02:38→21:14)
[2024-11-12] MEDS: dexmedeTOMIDidine HCL/NS 400 MCG/100 ML INFUS..BTL 16.95 MCG IVCONT ×2 (02:39→07:28)
[2024-11-12] MEDS: Ketorolac Tromethamine 15 MG/ML VIAL IVPUSH ×4 (04:13→22:39)
[2024-11-12 04:53] LABS: VBG Base Excess 5.1 mmol/L; VBG HCO3 28 mmol/L (22-26); VBG pCO2 36 mmHg; VBG pH 7.49 (7.32-7.43); VBG pO2 67 mmHg
[2024-11-12 04:56] LABS: Venous Blood Gas Refer to POC result
[2024-11-12 05:07] LABS: Basophils Percent Auto 0.3 % (0-2); Hematocrit 33.8 % (42.0-52.0); Hemoglobin 11.5 g/dl (14.0-18.0); Imm Gran Abs Auto 0.29 X10*3/uL (0.00-0.03); Imm Gran Pct Auto 1.8 % (0.0-0.4); Lymphocytes Absolute Auto 0.6 X10*3/uL (1.2-4.9); Lymphocytes Percent Auto 3.6 % (20-40); MANUAL DIFF FLAG SCAN; Mean Corpuscular Volume 88.3 fL (80.0-98.0); Mean Platelet Volume 8.8 fL (9.4-12.4); Monocytes Absolute Auto 0.4 X10*3/uL (0.1-1.2); Monocytes Percent Auto 2.3 % (2-11); Neutrophils Absolute Auto 14.7 x10*3/uL (2.0-8.3); Platelet Count 681 X10*3/uL (160-400); Red Blood Count 3.83 X10*6/uL (4.60-5.80); Red Cell Distribution Width 12.7 % (11.0-16.0); SCAN SMEAR FLAG 1
[2024-11-12 05:24] LABS: Albumin Level 3.4 g/dL (3.5-5.0); Anion Gap 15 (12-20); Blood Urea Nitrogen 17 mg/dL (9-16); Calcium 9.2 mg/dL (8.4-10.2); Carbon Dioxide 24 mmol/L (22-29); Chloride 106 mmol/L (96-108); Estimated Glomerular Filt Rate > 60; Glucose Random 160 mg/dL (60-115); Magnesium 2.6 mg/dL (1.6-2.6); Phosphorus 3.7 mg/dL (2.7-4.5); Potassium 3.5 mmol/L (3.3-5.1); Sodium 141 mmol/L (135-145)
[2024-11-12] MEDS: Piperacillin Sodium/Tazobactam 4.5 GM in 0.9 % Sodium Chloride 100 ML IV ×4 (05:29→23:49)
[2024-11-12 05:31] LABS: SLIDE REVIEW VERIFIED
[2024-11-12] MEDS: vancomycin HCL 1,000 MG in 0.9 % Sodium Chloride 250 ML 270 MG IV ×3 (06:29→23:48)
[2024-11-12] MEDS: 0.9 % Sodium Chloride Flush 3 ML SYRINGE IVFLUSH ×3 (07:30→22:42)
--- NOTE | 2024-11-12 08:57 | P.PNCC_ITS ---
Subjective Subjective Date of Service: 11/12/24 Critical Care Time (minutes): 35 Comment: Was on ventilator yesterday when we started losing volume possibly due to blowing off the cuff. So as he was any way as needed extubation and tube exchange patient was placed on pressor support trials which she tolerated okay for several hours so eventually extubated. Postextubation patient was placed on high-flow oxygen but later became short of breath so remained on BiPAP support Physical Exam 2 Vital Signs: Vital Signs: Last Vital Signs Temp 97.9 F 11/12/24 08:00 Pulse 77 11/12/24 08:00 Resp 16 11/12/24 08:11 BP 130/90 H 11/12/24 08:00 Pulse Ox 97 11/12/24 08:00 O2 Del Method BiPAP 11/12/24 08:00 O2 Flow Rate 50 11/11/24 15:54 FiO2 45 11/12/24 08:00 Oxygen Flow Rate 50 11/11/24 14:01 BMI result Body Mass Index 24.9 General: In somewhat acute distress, ill appearing and tired appearing Nutritional Appearance: well nourished and overweight Eyes: appearance normal, both eyes and all related structures; Alignment and Position: alignment normal and position normal Neck: No lymphadenopathy, no thyromegaly Resp: bilateral air entry equal, junky sounding lungs bilaterally Cardio: Regular rate, regular rhythm; Heart sounds: S1 normal heart sound present and S2 normal heart sound present GI: soft, nontender, no guarding, no hepatosplenomegaly : bladder normal to inspection, bladder normal to palpation, no renal angle tenderness Skin: no rashes or lesions noted and elasticity normal Neuro: No focal deficits and moves all extremities Objective Data Labs 11/12/24 04:47 11/12/24 04:47 Labs: Laboratory Results - last 24 hr 11/11/24 11/11/24 11/12/24 13:05 13:32 00:13 WBC RBC Hgb Hct MCV MCH MCHC RDW Plt Count MPV Immature Gran % (Auto) Neut % (Auto) Lymph % (Auto) [place] % (Auto) Eos % (Auto) Baso % (Auto) Lymph # (Auto) [place] # (Auto) Eos # (Auto) Baso # (Auto) Abs Immat Gran (auto) Absolute Neuts (auto) Absolute Nucleated RBC Nucleated RBC % (auto) Smear Tech's Comments VBG pH VBG pCO2 VBG pO2 VBG HCO3 VBG O2 Saturation VBG Base Excess Sodium Potassium Chloride Carbon Dioxide Anion Gap BUN Creatinine Estim Creat Clear Calc Estimated GFR POC Glucose 108 131 H Random Glucose Calcium Phosphorus Magnesium Albumin Random Vancomycin 11.4 L 11/12/24 11/12/24 04:42 04:47 WBC 16.0 H RBC 3.83 L Hgb 11.5 L Hct 33.8 L MCV 88.3 MCH 30.0 MCHC 34.0 RDW 12.7 Plt Count 681 H MPV 8.8 L Immature Gran % (Auto) 1.8 H Neut % (Auto) 92.0 H Lymph % (Auto) 3.6 L [place] % (Auto) 2.3 Eos % (Auto) 0.0 Baso % (Auto) 0.3 Lymph # (Auto) 0.6 L [place] # (Auto) 0.4 Eos # (Auto) 0.0 Baso # (Auto) 0.0 Abs Immat Gran (auto) 0.29 H Absolute Neuts (auto) 14.7 H Absolute Nucleated RBC 0.000 Nucleated RBC % (auto) 0.0 Smear Tech's Comments VERIFIED VBG pH 7.49 H VBG pCO2 36 VBG pO2 67 VBG HCO3 28 H VBG O2 Saturation 93.0 VBG Base Excess 5.1 Sodium 141 Potassium 3.5 Chloride 106 Carbon Dioxide 24 Anion Gap 15 BUN 17 H Creatinine 0.62 Estim Creat Clear Calc 135.0 Estimated GFR > 60 POC Glucose Random Glucose 160 H Calcium 9.2 Phosphorus 3.7 Magnesium 2.6 Albumin 3.4 L Random Vancomycin Microbiology Microbiology Results: Microbiology 11/06/24 18:04 Blood - Subclavian Blood Culture - Final No growth after 5 days. 11/06/24 18:04 Blood - Subclavian Blood Culture - Final No growth after 5 days. 11/04/24 22:41 Blood - Venous Blood Culture - Final No growth after 5 days. 11/04/24 22:26 Blood - Venous Blood Culture - Final No growth after 5 days. 11/06/24 14:30 Bronchial Washings Direct Acid Fast Bacilli Smear - Final 11/06/24 14:30 Bronchial Washings Fungal Identification - Preliminary No growth to date. 11/06/24 14:30 Bronchial Washings Gram Stain - Final 11/06/24 14:30 Bronchial Washings Routine Culture - Final No growth after 2 days 11/06/24 01:18 Sputum - Induced Gram Stain - Final 11/06/24 01:18 Sputum - Induced Sputum Culture - Final Progress Note: A&P Assessment and plan (1) Acute encephalopathy: Status: Acute (2) Lung mass: Status: Acute (3) Acute hypoxemic respiratory failure: Status: Acute Plan Neuro: Acute encephalopathy possibly due to metabolic encephalopathy On continuous Precedex drip for anxiolysis Close neurological status monitoring in the ICU every hour Cardiac: Blood pressure stable, off levophed support Respiratory: Acute hypoxemic respiratory failure due to complete atelectasis of the right lung due to postobstructive pneumonia and possibly pneumonia in the left lung CT chest showing a 4 cm endobronchial lesion obstructing the right mainstem along with a mass in the right lung. Biopsy pathology results were inconsistent, revealing squamous metaplasia and granulomatous tissues Extubated yesterday, had significant shortness of breath postextubation initially placed on high-flow later switched to BiPAP support. Receiving Solu-Medrol 80 mg for significant wheezing despite Duo nebs. We will change the Solu-Medrol to 60 mg Q6h GI: tube feeds held postextubation Renal: creatinine normal We will closely monitor I's and O's Avoid nephrotoxic medications Heme: Chronic anemia, closely monitor H&H, transfuse for hemoglobin less than 7 grams/deciliter Endocrine: Blood sugars under control Sliding scale insulin as needed Infectious disease: Pancultures negative so far Leukocytosis slightly increasing due to steroids On vanc and Zosyn for empiric coverage Musculoskeletal: Decubitus ulcer prevention protocol Lines: Peripheral Prophylaxis: SCD, pantoprazole Quality Stroke Does the patient have a stroke diagnosis?: No VTE Prior VTE?: No VTE Risk Level:: Medical - moderate - high VTE Device Contraindication: Treatment Not Indicated VTE Drug Contraindication: N/A - Med Ordered
[2024-11-12] MEDS: Metoclopramide HCl 10 MG/2 ML VIAL IVPUSH ×2 (10:27→16:04)
--- NOTE | 2024-11-12 11:03 | MHC.CLN ---
F/U PT EXTUBATED YESTERDAY DISCUSSED AT ROUNDS WITH MD WILL CHANGE DIET TO NPO WHEN DIET TO ADVANCE, RECOMMEND REGULAR DIET FOLLOWING FOR DIET ADVANCEMENT
[2024-11-12 11:20] LABS: Glucose, Whole Blood 154 mg/dL (60-115)
[2024-11-12 13:08] LABS: Vancomycin Random 13.6 mcg/mL (15-20)
--- NOTE | 2024-11-12 15:00 | MHC.CM.PN ---
Pt was extubated on placed on BiPAP and high flow N/C: Alert and oriented: plan for the day is to wean off of Dex. Original d/c plan was for return to home w/family support: Will need PCP and possible transportation. CM to follow
[2024-11-12 18:58] LABS: Glucose, Whole Blood 125 mg/dL (60-115)
[2024-11-12] MEDS: ondansetron HCL 4 MG/2 ML VIAL IVPUSH (19:40)
[2024-11-12] MEDS: levalbuterol HCL 1.25 MG/3 ML VIAL.NEB INHALE (20:23)
[2024-11-12] MEDS: ALPRAZolam 0.5 MG TABLET PO (21:05)
[2024-11-12 23:31] LABS: Glucose, Whole Blood 129 mg/dL (60-115)
[2024-11-13] VITALS (24 sets, daily range): BP systolic 117–153; BP diastolic 63–99; PULSE 62–122; RESP 18–30; TEMP 36.4–38.2; O2SAT 90–95
[2024-11-13] MEDS: Metoclopramide HCl 10 MG/2 ML VIAL IVPUSH ×3 (00:47→16:53)
[2024-11-13] MEDS: fentaNYL citrate/PF 100 MCG/2 ML VIAL 50 MCG IVPUSH ×2 (01:36→05:28)
[2024-11-13] MEDS: levalbuterol HCL 1.25 MG/3 ML VIAL.NEB INHALE (02:56)
[2024-11-13] MEDS: methylPREDNISolone Sod Succ 125 MG/2 ML VIAL 60 MG IVPUSH ×4 (03:31→20:16)
[2024-11-13] MEDS: Ketorolac Tromethamine 15 MG/ML VIAL IVPUSH ×2 (03:32→20:16)
[2024-11-13] MEDS: Piperacillin Sodium/Tazobactam 4.5 GM in 0.9 % Sodium Chloride 100 ML IV ×3 (05:28→17:31)
[2024-11-13 05:30] LABS: Basophils Percent Auto 0.1 % (0-2); Hematocrit 32.7 % (42.0-52.0); Hemoglobin 11.1 g/dl (14.0-18.0); Imm Gran Abs Auto 0.33 X10*3/uL (0.00-0.03); Imm Gran Pct Auto 1.6 % (0.0-0.4); Lymphocytes Absolute Auto 0.8 X10*3/uL (1.2-4.9); Lymphocytes Percent Auto 3.8 % (20-40); MANUAL DIFF FLAG NO; Mean Corpuscular HGB Conc 33.9 g/dl (31.0-36.0); Mean Corpuscular Hemoglobin 30.2 pg (27.0-33.0); Mean Corpuscular Volume 88.9 fL (80.0-98.0); Monocytes Percent Auto 5.1 % (2-11); Neutrophils Absolute Auto 18.3 x10*3/uL (2.0-8.3); Neutrophils Percent Auto 89.4 % (45-73); Platelet Count 749 X10*3/uL (160-400); Red Blood Count 3.68 X10*6/uL (4.60-5.80); Red Cell Distribution Width 12.7 % (11.0-16.0); White Blood Count 20.5 X10*3/uL (4.8-10.8)
[2024-11-13 05:36] LABS: VBG Base Excess 2.5 mmol/L; VBG HCO3 25 mmol/L (22-26); VBG pCO2 34 mmHg; VBG pH 7.47 (7.32-7.43); VBG pO2 60 mmHg
[2024-11-13 05:43] LABS: Venous Blood Gas Refer to POC result
[2024-11-13 05:46] LABS: Albumin Level 3.7 g/dL (3.5-5.0); Anion Gap 13 (12-20); Blood Urea Nitrogen 31 mg/dL (9-16); Calcium 9.4 mg/dL (8.4-10.2); Carbon Dioxide 24 mmol/L (22-29); Chloride 113 mmol/L (96-108); Creatinine Clr Calc Pharmacy 110.1; Estimated Glomerular Filt Rate > 60; Glucose Random 151 mg/dL (60-115); Magnesium 2.7 mg/dL (1.6-2.6); Phosphorus 2.6 mg/dL (2.7-4.5); Potassium 3.5 mmol/L (3.3-5.1); Sodium 146 mmol/L (135-145)
[2024-11-13] MEDS: vancomycin HCL 1,000 MG in 0.9 % Sodium Chloride 250 ML 270 MG IV (06:04)
[2024-11-13] MEDS: 0.9 % Sodium Chloride Flush 3 ML SYRINGE IVFLUSH ×3 (07:39→20:22)
[2024-11-13] MEDS: ALPRAZolam 0.5 MG TABLET PO ×3 (07:40→20:16)
[2024-11-13] MEDS: oxyCODONE HCl Immed Release 5 MG TABLET 10 MG PO ×3 (07:40→16:54)
--- NOTE | 2024-11-13 08:57 | P.PNCC_ITS ---
Subjective Subjective Date of Service: 11/13/24 Critical Care Time (minutes): 35 Comment: Off Precedex drip for over 24 hours now On high-flow oxygen since yesterday morning, tolerating well. On 60% oxygen at 50 liters/minute Physical Exam 2 Vital Signs: Vital Signs: Last Vital Signs Temp 97.7 F 11/13/24 08:00 Pulse 85 11/13/24 08:00 Resp 26 H 11/13/24 08:00 BP 140/77 H 11/13/24 08:00 Pulse Ox 90 L 11/13/24 08:00 O2 Del Method High Flow Nasal C annula 11/13/24 08:00 O2 Flow Rate 50 11/13/24 08:00 FiO2 60 11/13/24 08:00 Oxygen Flow Rate 50 11/11/24 14:01 BMI result Body Mass Index 24.9 General: Young male, chronically ill appearing and tired appearing Nutritional Appearance: well nourished and overweight Eyes: appearance normal, both eyes and all related structures; Alignment and Position: alignment normal and position normal Neck: No lymphadenopathy, no thyromegaly Resp: bilateral air entry equal, crackles heard in the left lung, decreased air entry in the right lung base Cardio: Regular rate, regular rhythm; Heart sounds: S1 normal heart sound present and S2 normal heart sound present GI: soft, nontender, no guarding, no hepatosplenomegaly : bladder normal to inspection, bladder normal to palpation, no renal angle tenderness Skin: no rashes or lesions noted and elasticity normal Neuro: oriented to person, oriented to place, oriented to time and moves all extremities Objective Data Labs 11/13/24 05:22 11/13/24 05:22 Labs: Laboratory Results - last 24 hr 11/12/24 11/12/24 11/12/24 11:17 12:41 18:53 WBC RBC Hgb Hct MCV MCH MCHC RDW Plt Count MPV Immature Gran % (Auto) Neut % (Auto) Lymph % (Auto) [place] % (Auto) Eos % (Auto) Baso % (Auto) Lymph # (Auto) [place] # (Auto) Eos # (Auto) Baso # (Auto) Abs Immat Gran (auto) Absolute Neuts (auto) Absolute Nucleated RBC Nucleated RBC % (auto) VBG pH VBG pCO2 VBG pO2 VBG HCO3 VBG O2 Saturation VBG Base Excess Sodium Potassium Chloride Carbon Dioxide Anion Gap BUN Creatinine Estim Creat Clear Calc Estimated GFR POC Glucose 154 H 125 H Random Glucose Calcium Phosphorus Magnesium Albumin Random Vancomycin 13.6 L 11/12/24 11/13/24 11/13/24 23:27 05:22 05:23 WBC 20.5 H RBC 3.68 L Hgb 11.1 L Hct 32.7 L MCV 88.9 MCH 30.2 MCHC 33.9 RDW 12.7 Plt Count 749 H MPV 9.0 L Immature Gran % (Auto) 1.6 H Neut % (Auto) 89.4 H Lymph % (Auto) 3.8 L [place] % (Auto) 5.1 Eos % (Auto) 0.0 Baso % (Auto) 0.1 Lymph # (Auto) 0.8 L [place] # (Auto) 1.0 Eos # (Auto) 0.0 Baso # (Auto) 0.0 Abs Immat Gran (auto) 0.33 H Absolute Neuts (auto) 18.3 H Absolute Nucleated RBC 0.000 Nucleated RBC % (auto) 0.0 VBG pH 7.47 H VBG pCO2 34 VBG pO2 60 VBG HCO3 25 VBG O2 Saturation 89.0 VBG Base Excess 2.5 Sodium 146 H Potassium 3.5 Chloride 113 H Carbon Dioxide 24 Anion Gap 13 BUN 31 H Creatinine 0.76 Estim Creat Clear Calc 110.1 Estimated GFR > 60 POC Glucose 129 H Random Glucose 151 H Calcium 9.4 Phosphorus 2.6 L Magnesium 2.7 H Albumin 3.7 Random Vancomycin Microbiology Microbiology Results: Microbiology 11/06/24 18:04 Blood - Subclavian Blood Culture - Final No growth after 5 days. 11/06/24 18:04 Blood - Subclavian Blood Culture - Final No growth after 5 days. 11/04/24 22:41 Blood - Venous Blood Culture - Final No growth after 5 days. 11/04/24 22:26 Blood - Venous Blood Culture - Final No growth after 5 days. 11/06/24 14:30 Bronchial Washings Direct Acid Fast Bacilli Smear - Final 11/06/24 14:30 Bronchial Washings Fungal Identification - Preliminary No growth to date. 11/06/24 14:30 Bronchial Washings Gram Stain - Final 11/06/24 14:30 Bronchial Washings Routine Culture - Final No growth after 2 days 11/06/24 01:18 Sputum - Induced Gram Stain - Final 11/06/24 01:18 Sputum - Induced Sputum Culture - Final Progress Note: A&P Assessment and plan (1) Lung mass: Status: Acute (2) Acute hypoxemic respiratory failure: Status: Acute (3) Acute encephalopathy: Status: Acute Plan Respiratory: Acute hypoxemic respiratory failure due to complete atelectasis of the right lung due to postobstructive pneumonia and possibly pneumonia in the left lung CT chest showing a 4 cm endobronchial lesion obstructing the right mainstem along with a mass in the right lung. Biopsy pathology results were inconsistent, revealing squamous metaplasia and granulomatous tissues Extubated 2 days ago, h remained on BiPAP support for about 18 hours postextubation, stable on high-flow oxygen 60% at 50 L since yesterday morning On Solu-Medrol 60 mg q.6 hours due to significant bilateral wheeze and conducted sounds Anxiety: Patient has significant anxiety, especially with family around Talked to him in detail about how he is improving and how he has made a significant change in the past few days Requiring frequent dose of fentanyl, we will add scheduled oxycodone decrease the IV opioid requirement on Ketorolac for pleuritic pain. Infectious disease: Pancultures negative so far Leukocytosis slightly increasing due to steroids On vanc and Zosyn for empiric coverage will get MRSA nares if negative we will discontinue vancomycin Acute hypophosphatemia: Possibly due to poor oral intake We will improved diet Prophylaxis: SCD, pantoprazole Quality Stroke Does the patient have a stroke diagnosis?: No VTE Prior VTE?: No VTE Risk Level:: Medical - moderate - high VTE Device Contraindication: Treatment Not Indicated VTE Drug Contraindication: N/A - Med Ordered
--- NOTE | 2024-11-13 11:27 | MHC.CM.PN ---
EMR REVIEWED, PT NOW ON HI-FLOW O2, DIET ADVANCING, PER PALS SPECIALIST DECREASING FREQ OF IV FENTANYL, IF PT TOLERATES ANTIC HE WILL DOWNGRADE TO IMC, CM WILL CONT TO FOLLOW DC NEEDS.
--- NOTE | 2024-11-13 12:03 | MHC.CLN ---
F/U DISCUSSED AT ROUNDS WITH DIET ADVANCED TO REGULAR TODAY PT IS HUNGRY, ASKING FOR FOOD, ATE 2 ICE CREAM PER NSG MONITOR PO INTAKE RD TO FOLLOW WEEKLY
[2024-11-13 14:39] LABS: Glucose, Whole Blood 134 mg/dL (60-115)
[2024-11-13 16:00] LABS: MRSA Nasal PCR NEGATIVE (Negative); SA Nasal PCR NEGATIVE (Negative)
--- NOTE | 2024-11-13 17:43 | P.EN_ITS ---
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 His CXR and CT chest was showed 4.1 x 4.7 cm mass completely obstructing the right mainstem leading to postobstructive atelectasis of the right lung so he was taken for bronchoscopy on 11/07: significant necrotic looking mass at the level of the right mainstem protruding out to the main davion and the central airway, but not impacting the left mainstem bronchus. The obstruction was 100%. The bronch could not get through this mass to see further down. biopsies were obtained from this mass. Following bronchoscopy patient remained intubated and was transferred to the ICU for close monitoring. He remained intubated until 11/12, following intubation patient has significant shortness of breath required bipap support and was then transitioned to [facility] Biopsy pathology results were inconsistent, revealing squamous metaplasia and granulomatous tissues repeat cxr 11/11 with slight interval improvement of the the right lower lung cultures negative to date downgraded to the medical floor 11/13 remains on [facility] Time Spent With Patient Time: Total time managing care of this patient today ____ minutes.
[2024-11-13] MEDS: Benzonatate 100 MG CAPSULE PO (20:15)
[2024-11-13] MEDS: Acetaminophen 325 MG TABLET 650 MG PO (20:15)
[2024-11-14] VITALS (12 sets, daily range): BP systolic 119–149; BP diastolic 72–98; PULSE 58–112; RESP 16–21; TEMP 36.7–37.3; O2SAT 92–97
[2024-11-14] MEDS: Metoclopramide HCl 10 MG/2 ML VIAL IVPUSH ×3 (00:06→16:25)
[2024-11-14] MEDS: oxyCODONE HCl Immed Release 5 MG TABLET 10 MG PO ×3 (00:06→16:25)
[2024-11-14] MEDS: Piperacillin Sodium/Tazobactam 4.5 GM in 0.9 % Sodium Chloride 100 ML IV ×2 (00:07→05:08)
[2024-11-14] MEDS: methylPREDNISolone Sod Succ 125 MG/2 ML VIAL 60 MG IVPUSH ×4 (02:08→20:20)
[2024-11-14] MEDS: ondansetron HCL 4 MG/2 ML VIAL IVPUSH (04:38)
[2024-11-14 07:31] LABS: Anion Gap 13 (12-20); Blood Urea Nitrogen 27 mg/dL (9-16); Carbon Dioxide 22 mmol/L (22-29); Chloride 113 mmol/L (96-108); Creatinine Clr Calc Pharmacy 108.7; Estimated Glomerular Filt Rate > 60; Glucose Random 159 mg/dL (60-115); Potassium 3.7 mmol/L (3.3-5.1); Sodium 144 mmol/L (135-145)
[2024-11-14] MEDS: Benzonatate 100 MG CAPSULE PO (07:41)
[2024-11-14] MEDS: ALPRAZolam 0.5 MG TABLET PO ×3 (07:42→20:20)
[2024-11-14] MEDS: Acetaminophen 325 MG TABLET 650 MG PO ×2 (07:42→14:35)
[2024-11-14] MEDS: 0.9 % Sodium Chloride Flush 3 ML SYRINGE IVFLUSH ×3 (07:44→20:21)
[2024-11-14] MEDS: guaiFENesin DM 200/20/10 ML 10 ML SYRUP PO (11:41)
[2024-11-14] MEDS: Ketorolac Tromethamine 15 MG/ML VIAL IVPUSH (11:41)
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
[2024-11-14] MEDS: Azithromycin 500 MG in 0.9 % Sodium Chloride 250 ML 125 MG IV (11:54)
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
[2024-11-14] MEDS: iohexoL 350 MG/ML 100 ML INFUS..BTL IV (16:24)
[2024-11-14] MEDS: cefEPime HCl/D5W 2 GM/50 ML PIGGYBACK IV (16:27)
[2024-11-15] VITALS (11 sets, daily range): BP systolic 132–150; BP diastolic 77–93; PULSE 55–87; RESP 16–20; TEMP 36.6–37.2; O2SAT 93–98
[2024-11-15] MEDS: oxyCODONE HCl Immed Release 5 MG TABLET 10 MG PO ×3 (00:07→15:10)
[2024-11-15] MEDS: Metoclopramide HCl 10 MG/2 ML VIAL IVPUSH ×3 (00:07→15:10)
[2024-11-15] MEDS: ondansetron HCL 4 MG/2 ML VIAL IVPUSH (01:11)
[2024-11-15] MEDS: methylPREDNISolone Sod Succ 125 MG/2 ML VIAL 60 MG IVPUSH ×4 (02:26→22:03)
[2024-11-15] MEDS: Ketorolac Tromethamine 15 MG/ML VIAL IVPUSH (02:31)
[2024-11-15] MEDS: Acetaminophen 325 MG TABLET 650 MG PO (03:14)
[2024-11-15] MEDS: cefEPime HCl/D5W 2 GM/50 ML PIGGYBACK IV ×2 (03:15→15:13)
[2024-11-15] MEDS: Omeprazole 40 MG CAPSULE.DR PO (05:33)
[2024-11-15] MEDS: 0.9 % Sodium Chloride Flush 3 ML SYRINGE IVFLUSH ×3 (08:18→19:42)
[2024-11-15] MEDS: ALPRAZolam 0.5 MG TABLET PO ×3 (08:18→22:03)
[2024-11-15 08:50] LABS: Hematocrit 34.6 % (42.0-52.0); Hemoglobin 12.1 g/dl (14.0-18.0); Mean Corpuscular Hemoglobin 30.3 pg (27.0-33.0); Mean Corpuscular Volume 86.7 fL (80.0-98.0); Mean Platelet Volume 9.2 fL (9.4-12.4); Platelet Count 696 X10*3/uL (160-400); Red Blood Count 3.99 X10*6/uL (4.60-5.80); Red Cell Distribution Width 12.5 % (11.0-16.0); White Blood Count 26.1 X10*3/uL (4.8-10.8)
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
[2024-11-15] MEDS: Azithromycin 500 MG in 0.9 % Sodium Chloride 250 ML 125 MG IV (12:27)
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
[2024-11-15] MEDS: HYDROmorphone HCl 0.5 MG/0.5 ML SYRINGE IV (19:41)
[2024-11-16] VITALS (8 sets, daily range): BP systolic 125–163; BP diastolic 79–93; PULSE 61–86; RESP 17–20; TEMP 36.2–37.1; O2SAT 91–96
[2024-11-16] MEDS: Metoclopramide HCl 10 MG/2 ML VIAL IVPUSH ×3 (01:23→16:08)
[2024-11-16] MEDS: oxyCODONE HCl Immed Release 5 MG TABLET 10 MG PO ×3 (01:23→16:06)
[2024-11-16] MEDS: cefEPime HCl/D5W 2 GM/50 ML PIGGYBACK IV ×2 (03:58→16:09)
[2024-11-16] MEDS: methylPREDNISolone Sod Succ 125 MG/2 ML VIAL 60 MG IVPUSH ×4 (03:58→19:57)
[2024-11-16] MEDS: Omeprazole 40 MG CAPSULE.DR PO (04:11)
[2024-11-16 07:03] LABS: Hematocrit 35.8 % (42.0-52.0); Hemoglobin 12.6 g/dl (14.0-18.0); Mean Corpuscular HGB Conc 35.2 g/dl (31.0-36.0); Mean Corpuscular Volume 85.2 fL (80.0-98.0); Mean Platelet Volume 9.3 fL (9.4-12.4); Platelet Count 776 X10*3/uL (160-400); Red Cell Distribution Width 12.3 % (11.0-16.0); White Blood Count 25.6 X10*3/uL (4.8-10.8)
[2024-11-16] MEDS: ALPRAZolam 0.5 MG TABLET PO ×3 (08:31→19:56)
[2024-11-16] MEDS: 0.9 % Sodium Chloride Flush 3 ML SYRINGE IVFLUSH ×2 (08:34→16:09)
[2024-11-16 11:05] LABS: Anion Gap 11 (12-20); Blood Urea Nitrogen 19 mg/dL (9-16); Calcium 8.6 mg/dL (8.4-10.2); Carbon Dioxide 22 mmol/L (22-29); Chloride 107 mmol/L (96-108); Creatinine Clr Calc Pharmacy 114.6; Estimated Glomerular Filt Rate > 60; Glucose Random 159 mg/dL (60-115); Potassium 3.6 mmol/L (3.3-5.1); Sodium 136 mmol/L (135-145)
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
[2024-11-16] MEDS: Azithromycin 500 MG in 0.9 % Sodium Chloride 250 ML 125 MG IV (12:25)
[2024-11-16] MEDS: HYDROmorphone HCl 0.5 MG/0.5 ML SYRINGE IV ×2 (13:41→19:56)
--- NOTE | 2024-11-16 15:01 | MHC.CM.PN ---
EMR reviewed and per MD rounds, pt is not medically cleared for discharge due to management of acute respiratory failure with hypoxia, and likely needs a repeat bronchoscopy.
[2024-11-16] MEDS: guaiFENesin DM 200/20/10 ML 10 ML SYRUP PO (19:56)
[2024-11-17] MEDS: HYDROmorphone HCl 0.5 MG/0.5 ML SYRINGE IV ×4 (00:14→19:58)
[2024-11-17] MEDS: Metoclopramide HCl 10 MG/2 ML VIAL IVPUSH ×3 (00:14→17:31)
[2024-11-17] MEDS: 0.9 % Sodium Chloride Flush 3 ML SYRINGE IVFLUSH ×3 (00:15→17:33)
[2024-11-17] MEDS: oxyCODONE HCl Immed Release 5 MG TABLET 10 MG PO ×3 (00:21→17:28)
[2024-11-17 03:07] VITALS: BP 105/68; PULSE 78; RESP 20; TEMP 36.3; O2SAT 94
[2024-11-17] MEDS: cefEPime HCl/D5W 2 GM/50 ML PIGGYBACK IV ×2 (04:50→17:29)
[2024-11-17] MEDS: methylPREDNISolone Sod Succ 125 MG/2 ML VIAL 60 MG IVPUSH ×4 (04:50→22:40)
[2024-11-17] MEDS: Omeprazole 40 MG CAPSULE.DR PO (06:19)
[2024-11-17 07:49] VITALS: BP 127/88; PULSE 77; RESP 18; TEMP 36.4; O2SAT 95
[2024-11-17] MEDS: ALPRAZolam 0.5 MG TABLET PO ×3 (10:39→22:40)
[2024-11-17 11:05] VITALS: BP 134/93; PULSE 72; RESP 18; TEMP 36.4; O2SAT 92
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
[2024-11-17] MEDS: Azithromycin 500 MG in 0.9 % Sodium Chloride 250 ML 125 MG IV (14:49)
[2024-11-17 15:00] VITALS: O2SAT 92
[2024-11-17 15:33] VITALS: BP 126/98; PULSE 115; RESP 18; TEMP 37.3; O2SAT 92
[2024-11-17 19:32] VITALS: BP 133/97; PULSE 91; RESP 18; TEMP 36.7; O2SAT 92
[2024-11-17] MEDS: guaiFENesin DM 200/20/10 ML 10 ML SYRUP PO (22:40)
[2024-11-18] VITALS (21 sets, daily range): BP systolic 119–143; BP diastolic 30–100; PULSE 70–104; RESP 12–20; TEMP 36.2–37.8; O2SAT 92–100
[2024-11-18] MEDS: Metoclopramide HCl 10 MG/2 ML VIAL IVPUSH ×3 (00:42→17:24)
[2024-11-18] MEDS: HYDROmorphone HCl 0.5 MG/0.5 ML SYRINGE IV ×4 (00:43→12:46)
[2024-11-18] MEDS: oxyCODONE HCl Immed Release 5 MG TABLET 10 MG PO (04:11)
[2024-11-18] MEDS: methylPREDNISolone Sod Succ 125 MG/2 ML VIAL 60 MG IVPUSH ×3 (04:12→21:05)
[2024-11-18] MEDS: cefEPime HCl/D5W 2 GM/50 ML PIGGYBACK IV ×2 (04:12→15:43)
[2024-11-18] MEDS: Omeprazole 40 MG CAPSULE.DR PO (05:05)
[2024-11-18] MEDS: 0.9 % Sodium Chloride Flush 3 ML SYRINGE IVFLUSH ×3 (08:41→21:05)
[2024-11-18] MEDS: ALPRAZolam 0.5 MG TABLET PO (08:41)
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
[2024-11-18 10:22] LABS: Hematocrit 37.2 % (42.0-52.0); Hemoglobin 13.2 g/dl (14.0-18.0); Mean Corpuscular HGB Conc 35.5 g/dl (31.0-36.0); Mean Corpuscular Hemoglobin 30.2 pg (27.0-33.0); Mean Corpuscular Volume 85.1 fL (80.0-98.0); Mean Platelet Volume 9.1 fL (9.4-12.4); Platelet Count 759 X10*3/uL (160-400); Red Blood Count 4.37 X10*6/uL (4.60-5.80); Red Cell Distribution Width 12.9 % (11.0-16.0)
[2024-11-18 10:35] LABS: Anion Gap 9 (12-20); Blood Urea Nitrogen 18 mg/dL (9-16); Calcium 8.5 mg/dL (8.4-10.2); Carbon Dioxide 23 mmol/L (22-29); Chloride 108 mmol/L (96-108); Creatinine Clr Calc Pharmacy 146.8; Estimated Glomerular Filt Rate > 60; Glucose Random 134 mg/dL (60-115); Potassium 3.6 mmol/L (3.3-5.1); Sodium 136 mmol/L (135-145)
[2024-11-18] MEDS: fentaNYL citrate/PF 100 MCG/2 ML VIAL 25 MCG IVPUSH ×3 (11:05→11:30)
[2024-11-18] MEDS: Midazolam HCl 2 MG/2 ML VIAL 0.5 MG IVPUSH ×3 (11:05→11:30)
[2024-11-18 11:17] LABS: White Blood Count 31.3 X10*3/uL (4.8-10.8)
[2024-11-18] MEDS: Lidocaine HCl 1 % MPF 30 ML VIAL 10 ML SUBCUT (11:54)
--- NOTE | 2024-11-18 12:20 | PCN2_ITS ---
Brief Operative Note Date of procedure: 11/18/24 Pre-op diagnosis: Right lung abscess, pleural effusion Post-op diagnosis: same Procedure: 1) CT right lung abscess aspiration- 3 cc bloody/purulent fluid aspirated and sent for microbiology. 2) CT right chest tube- 8 fr posterior drain placed given small presence of air. Pleural fluid removed and sent for analysis. Post imaging demonstrated an ex- vacuo pneumothorax. No immediate complications.
[2024-11-18 12:28] LABS: MN% 34.8 %; PMN% 65.2 %; RBC Pleural Fluid 0.208 X10*6/uL
[2024-11-18 12:30] LABS: WBC Pleural Fluid 1.273 X10*3/uL
[2024-11-18 13:16] LABS: BF Shift QC OK YES; Lymphocytes Pleural Fluid 29 %; Man Diluent Bkgrd OK YES; Monocytes Pleural Fluid 1 %; Neutrophils Pleural Fluid 67 %; Other Cells Plerual Fl 3 %
[2024-11-18] MEDS: Azithromycin 500 MG in 0.9 % Sodium Chloride 250 ML 125 MG IV (13:26)
--- NOTE | 2024-11-18 15:16 | MHC.CM.PN ---
EMR REVIEWED, PT W/ARF W/HYPOXIA, PER HOSPITALIST PLAN FOR LUNG ABSCESS ASPIRATION, CHEST TUBE ALSO PLACED DURING PROCEDURE, NO PLAN FOR DC AT THIS TIME, CM WILL CONT TO FOLLOW DC NEEDS.
[2024-11-18] MEDS: oxyCODONE HCl Immed Release 5 MG TABLET PO ×2 (15:19→21:05)
[2024-11-18] MEDS: Ketorolac Tromethamine 30 MG/ML VIAL IVPUSH (15:19)
[2024-11-18] MEDS: HYDROmorphone HCl 0.5 MG/0.5 ML SYRINGE 1 MG IV ×3 (15:43→22:35)
[2024-11-19] VITALS (7 sets, daily range): BP systolic 117–152; BP diastolic 82–99; PULSE 79–100; RESP 16–19; TEMP 36.2–37.3; O2SAT 91–98
[2024-11-19] MEDS: Metoclopramide HCl 10 MG/2 ML VIAL IVPUSH ×2 (01:32→08:04)
[2024-11-19] MEDS: HYDROmorphone HCl 0.5 MG/0.5 ML SYRINGE 1 MG IV ×8 (01:32→23:20)
[2024-11-19] MEDS: oxyCODONE HCl Immed Release 5 MG TABLET PO ×2 (03:08→22:14)
[2024-11-19] MEDS: cefEPime HCl/D5W 2 GM/50 ML PIGGYBACK IV ×2 (03:09→15:48)
[2024-11-19] MEDS: Omeprazole 40 MG CAPSULE.DR PO (06:29)
[2024-11-19] MEDS: methylPREDNISolone Sod Succ 125 MG/2 ML VIAL 60 MG IVPUSH ×2 (08:04→20:20)
[2024-11-19] MEDS: 0.9 % Sodium Chloride Flush 3 ML SYRINGE IVFLUSH ×3 (08:05→23:27)
--- NOTE | 2024-11-19 11:24 | MHC.CM.PN ---
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
[2024-11-19] MEDS: Azithromycin 500 MG in 0.9 % Sodium Chloride 250 ML 125 MG IV (11:29)
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
[2024-11-19] MEDS: Ketorolac Tromethamine 15 MG/ML VIAL IVPUSH (15:55)
[2024-11-20] MEDS: HYDROmorphone HCl 0.5 MG/0.5 ML SYRINGE 1 MG IV ×4 (02:18→12:57)
[2024-11-20 04:00] VITALS: BP 137/80; PULSE 77; RESP 16; TEMP 37.1; O2SAT 94
[2024-11-20] MEDS: cefEPime HCl/D5W 2 GM/50 ML PIGGYBACK IV ×2 (05:10→15:39)
[2024-11-20] MEDS: Omeprazole 40 MG CAPSULE.DR PO (05:46)
[2024-11-20 07:05] VITALS: BP 127/81; PULSE 85; RESP 20; TEMP 36.4; O2SAT 95
[2024-11-20] MEDS: methylPREDNISolone Sod Succ 125 MG/2 ML VIAL 60 MG IVPUSH (07:52)
[2024-11-20] MEDS: 0.9 % Sodium Chloride Flush 3 ML SYRINGE IVFLUSH ×3 (07:53→21:48)
[2024-11-20 09:04] LABS: Hematocrit 37.1 % (42.0-52.0); Hemoglobin 12.9 g/dl (14.0-18.0); Mean Corpuscular HGB Conc 34.8 g/dl (31.0-36.0); Mean Corpuscular Hemoglobin 30.4 pg (27.0-33.0); Mean Corpuscular Volume 87.3 fL (80.0-98.0); Platelet Count 678 X10*3/uL (160-400); Red Blood Count 4.25 X10*6/uL (4.60-5.80); Red Cell Distribution Width 13.9 % (11.0-16.0)
[2024-11-20 09:15] LABS: White Blood Count 32.2 X10*3/uL (4.8-10.8)
[2024-11-20 09:18] LABS: Anion Gap 9 (12-20); Blood Urea Nitrogen 19 mg/dL (9-16); Calcium 8.2 mg/dL (8.4-10.2); Carbon Dioxide 24 mmol/L (22-29); Chloride 106 mmol/L (96-108); Creatinine Clr Calc Pharmacy 132.8; Estimated Glomerular Filt Rate > 60; Glucose Random 154 mg/dL (60-115); Potassium 4.5 mmol/L (3.3-5.1); Sodium 134 mmol/L (135-145)
[2024-11-20 09:32] LABS: Band Neutrophils Percent 1 % (3-5); Eosinophils Absolute Manual 0.3 X10*3/uL (0.0-0.4); Eosinophils Percent Manual 1 % (0-4); Lymphocytes Absolute Manual 1.6 X10*3/uL (1.2-4.9); Lymphocytes Percent Manual 5 % (20-40); Metamyelocytes Absolute 0.3 X10*3/uL; Metamyelocytes Percent 1 %; Monocytes Percent Manual 3 % (2-11); Neutrophils Percent Manual 89 % (45-73)
[2024-11-20 09:33] LABS: Platelet Estimate INCREASED (NORMAL); Platelet Morphology Comment NORMAL; RBC Morphology NORMAL
[2024-11-20 11:01] VITALS: BP 138/84; PULSE 92; RESP 20; TEMP 36.8; O2SAT 93
[2024-11-20] MEDS: Azithromycin 500 MG in 0.9 % Sodium Chloride 250 ML 125 MG IV (12:57)
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
[2024-11-20 15:00] VITALS: O2SAT 93
[2024-11-20] MEDS: HYDROmorphone HCl 0.5 MG/0.5 ML SYRINGE IV ×2 (15:38→23:35)
--- NOTE | 2024-11-20 15:47 | MHC.CM.PN ---
EMR REVIEWED, PT NOW S/P R LUNG ABSCESS DRAINAGE AND CHEST TUBE PLACEMENT, IV SOLU MEDROL/ABX/NARCOTIC PAIN MEDS, PER HOSPITALIST ANTIC PT WILL REMAIN INPT THROUGH [facility], CM WILL CONT TO FOLLOW DC NEEDS.
[2024-11-20 16:00] VITALS: BP 126/89; PULSE 97; RESP 18; TEMP 36.7; O2SAT 92
[2024-11-20] MEDS: oxyCODONE HCl Immed Release 5 MG TABLET 10 MG PO ×2 (16:16→21:47)
[2024-11-20] MEDS: LORazepam 2 MG/ML VIAL 1 MG IVPUSH (19:16)
[2024-11-20] MEDS: Ketorolac Tromethamine 15 MG/ML VIAL IVPUSH (19:17)
[2024-11-20 19:26] VITALS: BP 119/78; PULSE 120; RESP 16; TEMP 37.2; O2SAT 95
[2024-11-21] VITALS (23 sets, daily range): BP systolic 91–124; BP diastolic 54–87; PULSE 107–136; RESP 12–24; TEMP 36.4–37; O2SAT 92–100
--- NOTE | 2024-11-21 03:11 | PM.EVENT ---
Event Note Date of Service: 11/21/24 Event Note: Nurse reported increasing oxygen requirements overnight. Diminished right lung sounds. Will switch to HFNC. Obtaining vbg and chest xray. On empiric IV abx Time Spent With Patient Time: Total time managing care of this patient today ____ minutes.
[2024-11-21 03:37] LABS: Venous Blood Gas Refer to POC result
[2024-11-21 03:39] LABS: VBG Base Excess 5.1 mmol/L; VBG HCO3 27 mmol/L (22-26); VBG pCO2 35 mmHg; VBG pO2 54 mmHg
[2024-11-21] MEDS: LORazepam 2 MG/ML VIAL 1 MG IVPUSH (03:55)
[2024-11-21] MEDS: cefEPime HCl/D5W 2 GM/50 ML PIGGYBACK IV ×2 (04:04→16:04)
[2024-11-21] MEDS: HYDROmorphone HCl 0.5 MG/0.5 ML SYRINGE IV ×5 (06:29→22:39)
[2024-11-21] MEDS: Omeprazole 40 MG CAPSULE.DR PO (06:29)
[2024-11-21] MEDS: methylPREDNISolone Sod Succ 125 MG/2 ML VIAL 40 MG IVPUSH (06:30)
[2024-11-21] MEDS: Ketorolac Tromethamine 15 MG/ML VIAL IVPUSH ×2 (08:17→17:58)
[2024-11-21] MEDS: 0.9 % Sodium Chloride Flush 3 ML SYRINGE IVFLUSH ×3 (08:18→20:06)
[2024-11-21 08:51] LABS: pH Pleural Fluid 7.48
[2024-11-21 09:44] LABS: Albumin Pleural Fluid 1.8; LDH Pleural Fluid 312
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
[2024-11-21] MEDS: Azithromycin 500 MG in 0.9 % Sodium Chloride 250 ML 125 MG IV (10:33)
--- NOTE | 2024-11-21 11:21 | MHC.CM.PN ---
Patient will transfer to ICU.
--- NOTE | 2024-11-21 11:29 | P.EN_ITS ---
Event Note Date of Service: 11/21/24 Event Note: Patient is a 45 Y M w/ prior incarceration, MAC pneumonia c/b pulmonary abscess, multiple admissions in recent months d/t pneumonia, re-presented to emergency department on 11/05 w/ dyspnea, pleuritic chest pain, found to be hypoxic, admitted medicine; work-up demonstrating R mainstem bronchus obstruction d/t necrotizing mass; on 11/20 PM, patient w/ worsening hypoxia; pulmonology re- engaged, plan to admit ICU for possible bronchoscopy 11/23; plan for supportive care, HFNC, wean as tolerated, close monitoring, continuing empiric antibiotics and steroids Time Spent With Patient Time: Total time managing care of this patient today ____ minutes.
--- NOTE | 2024-11-21 12:02 | P.PNPL_ITS ---
Subjective Subjective Date of Service: 11/21/24 Interval history: Overnight with deterioration and oxygen requirements, now on high-flow nasal cannula. Drainage from the chest tube stopped. Chest tube removed. Objective Data Labs 11/20/24 08:47 11/20/24 08:47 Labs: Laboratory Results - last 24 hr 11/20/24 11/21/24 08:00 03:30 VBG pH 7.50 H VBG pCO2 35 VBG pO2 54 VBG HCO3 27 H VBG O2 Saturation 84.0 VBG Base Excess 5.1 Pleural pH 7.48 Pleural Total Protein 3.0 Pleural Albumin 1.8 Pleural LDH 312 Microbiology Microbiology Results: Microbiology 11/18/24 11:20 Thoracentesis Fluid Gram Stain - Final 11/18/24 11:20 Thoracentesis Fluid Anaerobic Culture - Preliminary No growth to date. 11/18/24 11:20 Thoracentesis Fluid Body Fluid Culture - Final No growth after 2 days 11/06/24 14:30 Bronchial Washings Fungal Identification - Preliminary No growth after 1 week. 11/14/24 12:45 Sputum - Expectorated Gram Stain - Final 11/14/24 12:45 Sputum - Expectorated Sputum Culture - Final 11/06/24 18:04 Blood - Subclavian Blood Culture - Final No growth after 5 days. 11/06/24 18:04 Blood - Subclavian Blood Culture - Final No growth after 5 days. 11/04/24 22:41 Blood - Venous Blood Culture - Final No growth after 5 days. 11/04/24 22:26 Blood - Venous Blood Culture - Final No growth after 5 days. 11/06/24 14:30 Bronchial Washings Direct Acid Fast Bacilli Smear - Final 11/06/24 14:30 Bronchial Washings Gram Stain - Final 11/06/24 14:30 Bronchial Washings Routine Culture - Final No growth after 2 days 11/06/24 01:18 Sputum - Induced Gram Stain - Final 11/06/24 01:18 Sputum - Induced Sputum Culture - Final Physical Exam 2 Vital Signs: Vital Signs: Last Vital Signs Temp 97.6 F 11/21/24 11:59 Pulse 115 H 11/21/24 11:59 Resp 19 11/21/24 11:59 BP 92/66 11/21/24 11:59 Pulse Ox 100 11/21/24 11:59 O2 Del Method High Flow Nasal C annula 11/21/24 11:59 O2 Flow Rate 30 11/21/24 11:59 FiO2 84 11/21/24 11:59 Oxygen Flow Rate 30 11/21/24 08:00 BMI result Body Mass Index 24.9 Const: General: no acute distress, alert and awake Eyes: Sclerae: sclerae normal EOM: EOMs intact bilaterally Neck: Neck: Yes no lymphadenopathy, Yes trachea midline and Yes supple Resp: Effort & Inspection: normal respiratory effort and no respiratory distress Auscultation: other (No air movement on the left side) Cardio: Rate: tachycardic Rhythm: regular rhythm Heart sounds: no gallops, no murmurs and no rubs GI: Palpation (GI): Soft to palpation and Other GI palpation findings present ( Nontender) Auscultation: normal bowel sounds Extrem: General: Yes no pedal edema, No clubbing and No cyanosis Procedures Date of Service Date of Service: 11/21/24 Assessment and Plan Assessment and plan (1) Acute hypoxemic respiratory failure: Status: Acute (2) Lung mass: Status: Acute (3) Postobstructive pneumonia: Status: Acute Plan Impression: 44-year-old gentleman hospitalized with acute hypoxic respiratory failure and essentially completed collapse of the left lung with noted endobronchial lesion, however with essentially negative diagnostic results so far including endobronchial mass biopsy, thoracentesis, pleural studies. No microorganisms nor malignant cells recovered. Continues on empiric antibiotics. Recommendations: Continue to titrate off supplemental oxygen as tolerated. Continue empiric antibiotics. Will plan for repeat endobronchial mass sampling. Consider thoracic surgery evaluation for possible surgical biopsy. Time Spent With Patient Time: Total time managing care of this patient today ____ minutes. Progress Note: Quality Stroke Does the patient have a stroke diagnosis?: No
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
[2024-11-21] MEDS: oxyCODONE HCl Immed Release 5 MG TABLET 10 MG PO ×2 (13:37→20:03)
[2024-11-21] MEDS: LORazepam 2 MG/ML VIAL 0.5 MG IVPUSH ×2 (14:36→21:32)
[2024-11-21 15:14] LABS: Hematocrit 36.8 % (42.0-52.0); Hemoglobin 12.5 g/dl (14.0-18.0); Mean Corpuscular Hemoglobin 30.4 pg (27.0-33.0); Mean Corpuscular Volume 89.5 fL (80.0-98.0); Platelet Count 746 X10*3/uL (160-400); Red Blood Count 4.11 X10*6/uL (4.60-5.80); Red Cell Distribution Width 14.5 % (11.0-16.0)
[2024-11-21 15:19] LABS: White Blood Count 39.9 X10*3/uL (4.8-10.8)
[2024-11-21 15:32] LABS: Anion Gap 14 (12-20); Blood Urea Nitrogen 23 mg/dL (9-16); Calcium 8.3 mg/dL (8.4-10.2); Carbon Dioxide 20 mmol/L (22-29); Chloride 104 mmol/L (96-108); Creatinine Clr Calc Pharmacy 113.1; Estimated Glomerular Filt Rate > 60; Glucose Random 120 mg/dL (60-115); Magnesium 2.1 mg/dL (1.6-2.6); Phosphorus 4.4 mg/dL (2.7-4.5); Potassium 4.3 mmol/L (3.3-5.1); Sodium 134 mmol/L (135-145)
[2024-11-21] MEDS: Furosemide 20 MG/2 ML VIAL 10 MG IVPUSH (16:03)
[2024-11-21] MEDS: Calcium Gluconate/NaCl,Iso-Osm 1 GM/50 ML PLAST..BAG IV (16:04)
[2024-11-21] MEDS: Acetaminophen 325 MG TABLET 650 MG PO (17:58)
[2024-11-21] MEDS: Albumin Human 25 % 100 ML IV (23:25)
[2024-11-22] VITALS (52 sets, daily range): BP systolic 00–148; BP diastolic 00–99; PULSE 0–132; RESP 13–33; TEMP 34.6–37.1; O2SAT 96–100; BMI 24.9
[2024-11-22 00:12] LABS: Hematocrit 32.7 % (42.0-52.0); Hemoglobin 11.2 g/dl (14.0-18.0); Mean Corpuscular HGB Conc 34.3 g/dl (31.0-36.0); Mean Corpuscular Hemoglobin 30.5 pg (27.0-33.0); Mean Corpuscular Volume 89.1 fL (80.0-98.0); Mean Platelet Volume 8.8 fL (9.4-12.4); Platelet Count 724 X10*3/uL (160-400); Red Blood Count 3.67 X10*6/uL (4.60-5.80); Red Cell Distribution Width 14.4 % (11.0-16.0)
[2024-11-22 00:14] LABS: Anion Gap 14 (12-20); Blood Urea Nitrogen 32 mg/dL (9-16); Calcium 8.4 mg/dL (8.4-10.2); Carbon Dioxide 23 mmol/L (22-29); Chloride 102 mmol/L (96-108); Creatinine Clr Calc Pharmacy 77.5; Estimated Glomerular Filt Rate > 60; Glucose Random 148 mg/dL (60-115); Potassium 4.3 mmol/L (3.3-5.1); Sodium 135 mmol/L (135-145)
[2024-11-22] MEDS: Albumin Human 25 % 100 ML IV ×2 (00:25→08:08)
[2024-11-22 00:30] LABS: WBC ABN SCTR FOR CBC 1
[2024-11-22 00:46] LABS: Band Neutrophils Percent 2 % (3-5); Eosinophils Percent Manual 2 % (0-4); Lymphocytes Percent Manual 9 % (20-40); Metamyelocytes Percent 9 %; Monocytes Percent Manual 5 % (2-11); Myelocytes Percent 2 %; Neutrophils Percent Manual 69 % (45-73); Promyelocytes Percent 2 %
[2024-11-22 00:48] LABS: Acanthocytes 1+ (0-2) /OIF; Platelet Estimate INCREASED (NORMAL); Platelet Morphology Comment NORMAL; RBC Morphology NOTED
[2024-11-22 00:49] LABS: Ovalocytes 1+ (5-14) /OIF; Target Cells 1+ (5-14) /OIF
[2024-11-22 00:50] LABS: Basophilic Stippling 1+ (0-2) /OIF; Burr Cells 1+ (0-2) /OIF; Hypochromasia 1+ (5-14) /OIF; Schistocytes 1+ (0-2) /OIF; Tear Drop Cells 1+ (0-2) /OIF; Toxic Vacuolation PRESENT
[2024-11-22 00:53] LABS: Eosinophils Absolute Manual 1.1 X10*3/uL (0.0-0.4); Lymphocytes Absolute Manual 5.1 X10*3/uL (1.2-4.9); Metamyelocytes Absolute 5.1 X10*3/uL; Monocytes Absolute Manual 2.8 X10*3/uL (0.1-1.2); Myelocytes Absolute 1.1 X10*/uL; Neutrophils Absolute Manual 40.2 X10*3/uL (2.0-8.3); Promyelocytes Absolute 1.1 X10*3/uL; White Blood Count 56.6 X10*3/uL (4.8-10.8)
--- NOTE | 2024-11-22 01:06 | PM.EVENT ---
Documented by User: Lilo Ruelas NP 11/22/24 01:07 Event Note Date of Service: 11/22/24 Event Note: Patient is hypotensive, lactic is negative, no evidence of septic shock this time. Will broaden antibiotic coverage and obtain blood culture Time Spent With Patient Time: Total time managing care of this patient today ____ minutes. Documented by User: Michelle Hayes MD 11/22/24 08:31 Event Note Date of Service: 11/22/24
[2024-11-22] MEDS: Ketorolac Tromethamine 15 MG/ML VIAL IVPUSH ×2 (01:36→08:06)
[2024-11-22] MEDS: Piperacillin Sodium/Tazobactam 4.5 GM in 0.9 % Sodium Chloride 100 ML IV ×4 (01:37→21:11)
[2024-11-22] MEDS: HYDROmorphone HCl 0.5 MG/0.5 ML SYRINGE IV ×4 (01:40→14:59)
[2024-11-22] MEDS: oxyCODONE HCl Immed Release 5 MG TABLET 10 MG PO ×3 (03:12→16:28)
[2024-11-22] MEDS: Acetaminophen 325 MG TABLET 650 MG PO ×3 (03:13→16:28)
[2024-11-22] MEDS: vancomycin HCL 1,000 MG, vancomycin HCL 750 MG in 0.9 % Sodium Chloride 500 ML 267.5 MG IV (03:41)
[2024-11-22 05:40] LABS: Hematocrit 23.5 % (42.0-52.0); Hemoglobin 8.2 g/dl (14.0-18.0); Mean Corpuscular HGB Conc 34.9 g/dl (31.0-36.0); Mean Corpuscular Hemoglobin 31.4 pg (27.0-33.0); Mean Platelet Volume 8.9 fL (9.4-12.4); Platelet Count 531 X10*3/uL (160-400); Red Blood Count 2.61 X10*6/uL (4.60-5.80); Red Cell Distribution Width 14.4 % (11.0-16.0)
[2024-11-22 05:43] LABS: WBC ABN SCTR FOR CBC 1
[2024-11-22 05:55] LABS: Anion Gap 16 (12-20); Blood Urea Nitrogen 41 mg/dL (9-16); Calcium 8.6 mg/dL (8.4-10.2); Carbon Dioxide 22 mmol/L (22-29); Chloride 102 mmol/L (96-108); Creatinine Clr Calc Pharmacy 69.1; Estimated Glomerular Filt Rate > 60; Glucose Random 144 mg/dL (60-115); Magnesium 2.2 mg/dL (1.6-2.6); Phosphorus 5.4 mg/dL (2.7-4.5); Potassium 3.9 mmol/L (3.3-5.1); Sodium 136 mmol/L (135-145)
[2024-11-22 06:02] LABS: Acanthocytes 1+ (0-2) /OIF; Atypical Lymphs Percent Manual 1 % (0-6); Band Neutrophils Percent 4 % (3-5); Eosinophils Percent Manual 3 % (0-4); Lymphocytes Percent Manual 9 % (20-40); Metamyelocytes Percent 4 %; Monocytes Percent Manual 4 % (2-11); Myelocytes Percent 2 %; Neutrophils Percent Manual 71 % (45-73); Ovalocytes 2+ (15-30) /OIF; Platelet Estimate INCREASED (NORMAL); Platelet Morphology Comment NORMAL; Promyelocytes Percent 2 %; RBC Morphology NOTED
[2024-11-22 06:03] LABS: Hypochromasia 2+ (15-30) /OIF; Schistocytes 1+ (0-2) /OIF
[2024-11-22 06:04] LABS: Toxic Vacuolation PRESENT
[2024-11-22 06:05] LABS: Atypical Lymph Absolute Manual 0.4 x10*3/uL; Eosinophils Absolute Manual 1.2 X10*3/uL (0.0-0.4); Lymphocytes Absolute Manual 3.7 X10*3/uL (1.2-4.9); Metamyelocytes Absolute 1.6 X10*3/uL; Monocytes Absolute Manual 1.6 X10*3/uL (0.1-1.2); Myelocytes Absolute 0.8 X10*/uL; Neutrophils Absolute Manual 30.5 X10*3/uL (2.0-8.3); Promyelocytes Absolute 0.8 X10*3/uL; White Blood Count 40.7 X10*3/uL (4.8-10.8)
[2024-11-22] MEDS: Omeprazole 40 MG CAPSULE.DR PO (06:23)
[2024-11-22] MEDS: methylPREDNISolone Sod Succ 125 MG/2 ML VIAL 40 MG IVPUSH (06:23)
--- NOTE | 2024-11-22 07:48 | PC.RT ---
Pt awake and coop in bed up 45 degrees. Pt was transitioned from HFNC to 6 lpm Snyder cannula. Pt renata well, nursing aware.
[2024-11-22] MEDS: 0.9 % Sodium Chloride Flush 3 ML SYRINGE IVFLUSH ×2 (08:08→16:34)
--- NOTE | 2024-11-22 09:20 | P.PNCC_ITS ---
Subjective Subjective Date of Service: 11/22/24 Interval History: no significant overnight events Critical Care Time (minutes): 60 Physical Exam 2 Vital Signs: Vital Signs: Last Vital Signs Temp 98.1 F 11/22/24 08:00 Pulse 131 H 11/22/24 08:00 Resp 21 H 11/22/24 08:00 BP 100/71 11/22/24 08:00 Pulse Ox 97 11/22/24 08:00 O2 Del Method High Flow Nasal C annula 11/22/24 07:00 O2 Flow Rate 6 11/22/24 08:00 FiO2 40 11/22/24 07:00 Oxygen Flow Rate 30 11/21/24 08:00 BMI result Body Mass Index 24.9 Const: General: cooperative, healthy appearing, comfortable, no acute distress, well developed, alert, awake and Physically active O rientation/consciousness: patient oriented x3 HEENT: Head: Yes normal to inspection, Yes normocephalic and Yes atraumatic Eyes: General: appearance normal, both eyes and all related structures Neck: Neck: Yes normal visual inspection, Yes no meningeal signs, Yes trachea midline and Yes supple Chest: Chest palpation & inspection: normal inspection of the chest Resp: Other: diminished breath sounds R upper lung field; otherwise no appreciable rales, rhonchi, wheezing throughout Cardio: Rate: regular rate Rhythm: regular rhythm GI: Inspection: Yes normal to inspection, No Abdominal wall edema and No distended Palpation (GI): Soft to palpation, not firm, nontender, no guarding and not rigid Skin: General skin exam: no rashes or lesions noted Neuro: General: patient oriented x3, no meningeal signs and no focal motor deficits Extrem: General: Yes normal to inspection, Yes full ROM, Yes capillary refill normal and Yes no clubbing, cyanosis or edema Psych: Appearance: grossly normal Objective Data Labs 11/22/24 05:11 11/22/24 05:11 Labs: Laboratory Results - last 24 hr 11/20/24 11/21/24 11/21/24 08:00 14:38 23:42 WBC 39.9 H* 56.6 H* RBC 4.11 L 3.67 L Hgb 12.5 L 11.2 L Hct 36.8 L 32.7 L MCV 89.5 89.1 MCH 30.4 30.5 MCHC 34.0 34.3 RDW 14.5 14.4 Plt Count 746 H 724 H MPV 9.0 L 8.8 L Immature Gran % (Auto) Neut % (Auto) Lymph % (Auto) Jones % (Auto) Eos % (Auto) Baso % (Auto) Lymph # (Auto) Jones # (Auto) Eos # (Auto) Baso # (Auto) Abs Immat Gran (auto) Absolute Neuts (auto) Absolute Nucleated RBC 0.000 0.000 Nucleated RBC % (auto) 0.0 0.0 Neutrophils % (Manual) 69 Band Neutrophils % 2 L Lymphocytes % (Manual) 9 L Atypical Lymphs % (Man) Monocytes % (Manual) 5 Eosinophils % (Manual) 2 Metamyelocytes % 9 Myelocytes % 2 Promyelocytes % 2 Abs Neuts (Manual) 40.2 H Lymphocytes # (Manual) 5.1 H Atyp Lymphs # (Manual) Monocytes # (Manual) 2.8 H Eosinophils # (Manual) 1.1 H Metamyelocytes # 5.1 Myelocytes # 1.1 Promyelocytes # 1.1 Toxic Vacuolation PRESENT Platelet Estimate INCREASED Plt Morphology Comment NORMAL RBC Morphology NOTED Hypochromasia 1+ (5-14) Basophilic Stippling 1+ (0-2) Target Cells 1+ (5-14) Tear Drop Cells 1+ (0-2) Ovalocytes 1+ (5-14) Chen Cells 1+ (0-2) Acanthocytes (Spur) 1+ (0-2) Schistocytes 1+ (0-2) Sodium 134 L 135 Potassium 4.3 4.3 Chloride 104 102 Carbon Dioxide 20 L 23 Anion Gap 14 14 BUN 23 H 32 H Creatinine 0.74 1.08 Estim Creat Clear Calc 113.1 77.5 Estimated GFR > 60 > 60 Random Glucose 120 H 148 H Lactic Acid 2.0 Calcium 8.3 L 8.4 Phosphorus 4.4 Magnesium 2.1 Albumin 3.0 L Pleural pH 7.48 Pleural Total Protein 3.0 Pleural Albumin 1.8 Pleural LDH 312 11/22/24 05:11 WBC 40.7 H* RBC 2.61 L D Hgb 8.2 L D Hct 23.5 L D MCV 90.0 MCH 31.4 MCHC 34.9 RDW 14.4 Plt Count 531 H D MPV 8.9 L Immature Gran % (Auto) Cancelled Neut % (Auto) Cancelled Lymph % (Auto) Cancelled Jones % (Auto) Cancelled Eos % (Auto) Cancelled Baso % (Auto) Cancelled Lymph # (Auto) Cancelled Jones # (Auto) Cancelled Eos # (Auto) Cancelled Baso # (Auto) Cancelled Abs Immat Gran (auto) Cancelled Absolute Neuts (auto) Cancelled Absolute Nucleated RBC 0.000 Nucleated RBC % (auto) 0.0 Neutrophils % (Manual) 71 Band Neutrophils % 4 Lymphocytes % (Manual) 9 L Atypical Lymphs % (Man) 1 Monocytes % (Manual) 4 Eosinophils % (Manual) 3 Metamyelocytes % 4 Myelocytes % 2 Promyelocytes % 2 Abs Neuts (Manual) 30.5 H Lymphocytes # (Manual) 3.7 Atyp Lymphs # (Manual) 0.4 Monocytes # (Manual) 1.6 H Eosinophils # (Manual) 1.2 H Metamyelocytes # 1.6 Myelocytes # 0.8 Promyelocytes # 0.8 Toxic Vacuolation PRESENT Platelet Estimate INCREASED Plt Morphology Comment NORMAL RBC Morphology NOTED Hypochromasia 2+ (15-30) Basophilic Stippling Target Cells Tear Drop Cells Ovalocytes 2+ (15-30) [place] Cells Acanthocytes (Spur) 1+ (0-2) Schistocytes 1+ (0-2) Sodium 136 Potassium 3.9 Chloride 102 Carbon Dioxide 22 Anion Gap 16 BUN 41 H Creatinine 1.21 Estim Creat Clear Calc 69.1 Estimated GFR > 60 Random Glucose 144 H Lactic Acid Calcium 8.6 Phosphorus 5.4 H Magnesium 2.2 Albumin Pleural pH Pleural Total Protein Pleural Albumin Pleural LDH Microbiology Microbiology Results: Microbiology 11/18/24 11:20 Thoracentesis Fluid Gram Stain - Final 11/18/24 11:20 Thoracentesis Fluid Anaerobic Culture - Preliminary No growth to date. 11/18/24 11:20 Thoracentesis Fluid Body Fluid Culture - Final No growth after 2 days 11/06/24 14:30 Bronchial Washings Fungal Identification - Preliminary No growth after 1 week. 11/14/24 12:45 Sputum - Expectorated Gram Stain - Final 11/14/24 12:45 Sputum - Expectorated Sputum Culture - Final 11/06/24 18:04 Blood - Subclavian Blood Culture - Final No growth after 5 days. 11/06/24 18:04 Blood - Subclavian Blood Culture - Final No growth after 5 days. 11/04/24 22:41 Blood - Venous Blood Culture - Final No growth after 5 days. 11/04/24 22:26 Blood - Venous Blood Culture - Final No growth after 5 days. 11/06/24 14:30 Bronchial Washings Direct Acid Fast Bacilli Smear - Final 11/06/24 14:30 Bronchial Washings Gram Stain - Final 11/06/24 14:30 Bronchial Washings Routine Culture - Final No growth after 2 days 11/06/24 01:18 Sputum - Induced Gram Stain - Final 11/06/24 01:18 Sputum - Induced Sputum Culture - Final Progress Note: A&P Assessment and plan (1) Acute hypoxemic respiratory failure: Status: Acute (2) Postobstructive pneumonia: Status: Acute (3) Lung mass: Status: Acute Plan Patient is a 45 Y M w/ prior incarceration and undomiciled, MAC pneumonia c/b pulmonary abscess, multiple admissions in recent months d/t pneumonia, re- presented to emergency department on 11/05 w/ dyspnea, pleuritic chest pain, found to be hypoxic, admitted medicine; work-up demonstrating R mainstem bronchus obstruction d/t necrotizing mass; on 11/20 PM, patient w/ worsening hypoxia; pulmonology re-engaged, plan to admit ICU for possible bronchoscopy 11/23 N: no acute issues CV: intermittent hypotension, possibly d/t evolving sepsis, to maintain high suspicion for possible hemorrhage though no overt stigmata of hemorrhage; norepinephrine gtt as needed R: acute hypoxic respiratory failure, d/t R mainstem bronchus obstruction d/t necrotizing mass of unclear etiology, c/b R pneumothorax; empiric antibiotics, steroids GI: regular diet; NPO midnight for pending bronchoscopy : no acute issues H: leukocytosis, thrombocytosis, possibly reactive; of note, acute on chronic anemia 11/22, to repeat CBC, hold chemical DVT prophylaxis; mechanical devices ID: empiric vancomycin, zosyn E: no acute issues P: no acute issues Quality Stroke Does the patient have a stroke diagnosis?: No VTE Prior VTE?: No VTE Risk Level:: Medical - moderate - high VTE Device Contraindication: N/A - Device Ordered VTE Drug Contraindication: Treatment Not Tolerated
[2024-11-22] MEDS: Calcium Gluconate/NaCl,Iso-Osm 1 GM/50 ML PLAST..BAG IV (09:26)
[2024-11-22 09:46] LABS: Hematocrit 21.5 % (42.0-52.0); Hemoglobin 7.4 g/dl (14.0-18.0); Mean Corpuscular HGB Conc 34.4 g/dl (31.0-36.0); Mean Corpuscular Hemoglobin 31.2 pg (27.0-33.0); Mean Corpuscular Volume 90.7 fL (80.0-98.0); Platelet Count 486 X10*3/uL (160-400); Red Blood Count 2.37 X10*6/uL (4.60-5.80); Red Cell Distribution Width 14.7 % (11.0-16.0)
[2024-11-22 10:16] LABS: White Blood Count 33.3 X10*3/uL (4.8-10.8)
[2024-11-22 10:25] LABS: Band Neutrophils Percent 1 % (3-5); Eosinophils Percent Manual 3 % (0-4); Lymphocytes Percent Manual 6 % (20-40); Metamyelocytes Absolute 1.3 X10*3/uL; Metamyelocytes Percent 4 %; Neutrophils Percent Manual 86 % (45-73)
[2024-11-22 10:26] LABS: Ovalocytes 1+ (5-14) /OIF; Platelet Estimate INCREASED (NORMAL); RBC Morphology NOTED
[2024-11-22 10:50] LABS: Platelet Morphology Comment NORMAL
[2024-11-22] MEDS: iohexoL 350 MG/ML 100 ML INFUS..BTL 65 ML IV (16:22)
[2024-11-22] MEDS: vancomycin HCL 1,000 MG in 0.9 % Sodium Chloride 250 ML 270 MG IV (16:30)
[2024-11-22] MEDS: HYDROmorphone HCl 0.5 MG/0.5 ML SYRINGE 2 MG IV (16:55)
[2024-11-22] MEDS: Lidocaine 4 % Patch ADH..PATCH 2 PATCH TRANSDERMA (16:56)
[2024-11-22] MEDS: Acetaminophen 1,000 MG/100 ML PIGGYBACK 400 MG IV (16:56)
[2024-11-22] MEDS: LORazepam 2 MG/ML VIAL 0.5 MG IVPUSH (17:46)
[2024-11-22] MEDS: Metoclopramide HCl 10 MG/2 ML VIAL IVPUSH (17:47)
--- NOTE | 2024-11-22 18:22 | P.EN_ITS ---
Event Note Date of Service: 11/22/24 Event Note: patient's CT C w/ IV contrast resulted w/ concern for R hemothorax w/ active extravasation and was communicated with me at around 17:30; almost concurrently, nursing appreciated patient increasingly tachycardic and diaphretic; a total of 4 pRBC, 2 FFP, 2 PLT, and Ca 2g ordered; case discussed w/ thoracic surgery, who recommends IR embolization; case discussed w/ [facility] and [facility], both of whom are unable to accept transfers d/t capacity; case also discussed w/ [place], awaiting call back; given possibility of delayed or inability to transfer for IR, decision made to administered TXA Time Spent With Patient Time: Total time managing care of this patient today ____ minutes.
--- NOTE | 2024-11-22 18:37 | PM.DS ---
DS: Providers Provider Date of Service: 11/22/24 Date of admission: 11/04/24 23:47 Date of discharge: 11/22/24 Primary care physician: Leonardo Physician Consults: 11/04/24 23:44 Consult to Pulmonology Routine Consulting Provider: [facility] Pulmonology Services Reason for consultation: right sided mass ?developing abscess 11/21/24 04:29 Consult to Thoracic Surgery Stat Consulting Provider: Bulmaro Velazco Reason for consultation: increasing right pneumothorax Attending physician on discharge: Michelle Hayes DS: Transfer Hospital Acceptance Reason for Transfer: R [facility] Name of Facility: [facility] Accepting Provider: Tatyana Majano DS: Diagnosis Discharge Diagnosis (1) Hemothorax on right: Status: Acute (2) Acute hypoxemic respiratory failure: Status: Acute (3) Postobstructive pneumonia: Status: Acute (4) Lung mass: Status: Acute DS: Summary Hospital Course Hospital Course: Mr. Lobo is a 45 Y M w/ prior incarceration and undomiciled, MAC pneumonia c/b pulmonary abscess, multiple admissions in recent months d/t pneumonia, re-presented to emergency department on 11/05 w/ dyspnea, pleuritic chest pain, found to be hypoxic, admitted medicine; patient had work-up demonstrating R mainstem bronchus obstruction d/t necrotizing mass; on 11/20 PM, patient w/ worsening hypoxia, prompting ICU admission; on 11/22, patient w/ notable acute anemia, w/ some appreciable intermittent tachycardia and mild hypotension; given c/f hemothorax, CT C w/ IV contrast performed and demonstrated R hemothorax w/ active extravasation; soon thereafter, patient w/ appreciable clinical decline; resuscitation attempted w/ blood products and tranexamic acid, though patient suffered cardiac arrest Physical Exam Vital Signs: Vital Signs: Last Vital Signs Temp 94.2 F L 11/22/24 18:01 Pulse 99 11/22/24 18:01 Resp 31 H 11/22/24 18:01 BP 119/99 H 11/22/24 18:01 Pulse Ox 100 11/22/24 16:56 O2 Del Method Nasal Cannula 11/22/24 16:56 O2 Flow Rate 5 11/22/24 16:56 FiO2 40 11/22/24 07:00 Oxygen Flow Rate 30 11/21/24 08:00 BMI result Body Mass Index 24.9 DS: Data Data Completed and Pending Completed studies during hospitalization [Text1]: Pending at discharge 11/06/24 14:30 Surgical [PTH] Routine Pending studies at discharge: Pending at discharge 11/18/24 12:18 Cytology [PTH] Routine Labs on day of discharge: Laboratory Results - last 24 hr 11/21/24 11/22/24 11/22/24 23:42 05:11 09:31 WBC 56.6 H* 40.7 H* 33.3 H* RBC 3.67 L 2.61 L D 2.37 L Hgb 11.2 L 8.2 L D 7.4 L Hct 32.7 L 23.5 L D 21.5 L MCV 89.1 90.0 90.7 MCH 30.5 31.4 31.2 MCHC 34.3 34.9 34.4 RDW 14.4 14.4 14.7 Plt Count 724 H 531 H D 486 H MPV 8.8 L 8.9 L 9.0 L Immature Gran % (Auto) Cancelled Cancelled Neut % (Auto) Cancelled Cancelled Lymph % (Auto) Cancelled Cancelled [place] % (Auto) Cancelled Cancelled Eos % (Auto) Cancelled Cancelled Baso % (Auto) Cancelled Cancelled Lymph # (Auto) Cancelled Cancelled [place] # (Auto) Cancelled Cancelled Eos # (Auto) Cancelled Cancelled Baso # (Auto) Cancelled Cancelled Abs Immat Gran (auto) Cancelled Cancelled Absolute Neuts (auto) Cancelled Cancelled Absolute Nucleated RBC 0.000 0.000 0.000 Nucleated RBC % (auto) 0.0 0.0 0.0 Neutrophils % (Manual) 69 71 86 H Band Neutrophils % 2 L 4 1 L Lymphocytes % (Manual) 9 L 9 L 6 L Atypical Lymphs % (Man) 1 Monocytes % (Manual) 5 4 Eosinophils % (Manual) 2 3 3 Metamyelocytes % 9 4 4 Myelocytes % 2 2 Promyelocytes % 2 2 Abs Neuts (Manual) 40.2 H 30.5 H 29.0 H Lymphocytes # (Manual) 5.1 H 3.7 2.0 Atyp Lymphs # (Manual) 0.4 Monocytes # (Manual) 2.8 H 1.6 H Eosinophils # (Manual) 1.1 H 1.2 H 1.0 H Metamyelocytes # 5.1 1.6 1.3 Myelocytes # 1.1 0.8 Promyelocytes # 1.1 0.8 Toxic Vacuolation PRESENT PRESENT Platelet Estimate INCREASED INCREASED INCREASED Plt Morphology Comment NORMAL NORMAL NORMAL RBC Morphology NOTED NOTED NOTED Hypochromasia 1+ (5-14) 2+ (15-30) Basophilic Stippling 1+ (0-2) Target Cells 1+ (5-14) Tear Drop Cells 1+ (0-2) Ovalocytes 1+ (5-14) 2+ (15-30) 1+ (5-14) Chen Cells 1+ (0-2) Acanthocytes (Spur) 1+ (0-2) 1+ (0-2) Schistocytes 1+ (0-2) 1+ (0-2) Sodium 135 136 Potassium 4.3 3.9 Chloride 102 102 Carbon Dioxide 23 22 Anion Gap 14 16 BUN 32 H 41 H Creatinine 1.08 1.21 Estim Creat Clear Calc 77.5 69.1 Estimated GFR > 60 > 60 Random Glucose 148 H 144 H Lactic Acid 2.0 Calcium 8.4 8.6 Phosphorus 5.4 H Magnesium 2.2 Albumin 3.0 L Blood Type O Positive Antibody Screen NEGATIVE Crossmatch See Detail Preliminary micro results at discharge 11/18/24 11:20 Anaerobic Culture - Preliminary Thoracentesis Fluid No growth to date. 11/06/24 14:30 Fungal Identification - Preliminary Bronchial Washings No growth after 1 week. Discharge Plan Discharge Referrals: Physician,None [Primary Care Provider] - 1 Week Discharge Medications: No Action benzonatate 100 mg Capsule 200 mg PO TID PRN (Reason: Cough) Qty: 30 1RF cefuroxime axetil 500 mg tablet 500 mg PO BID 10 Days Qty: 20 0RF oxycodone 10 mg tablet 10 mg PO Q6H PRN (Reason: pain) Qty: 20 0RF Rx Instructions: Partial Fill upon patient request. Print Language: Indian
--- NOTE | 2024-11-22 19:01 | PC.RT ---
Pt intubated for resp failure, 1 attempt by PA with glideoscope. No resistance noted, confirmed placement via etco2, ETT condensate, and lung sounds. Pt has 7.5 ETT.
--- NOTE | 2024-11-22 19:13 | PM.EVENT ---
Event Note Date of Service: 11/22/24 Event Note: Rapid response was called. Patient was intubated by ICU provider in the setting of hypoxemia as no sat could be obtained. While in the room and patient was being bagged, patient went into asystole. CPR was initiated and patient was resuscitated as per ACLS protocol. Patient received multiple rounds of epinephrine, bicarb, calcium, magnesium, IV lidocaine, IV amiodarone throughout resuscitation. Initial rhythm was asystole but patient went into VFib during the code. Please refer to code sheet for details. Eventually ROSC achieved. Will order repeat labs and blood gas. Time spent: 40min Time Spent With Patient Time: Total time managing care of this patient today ____ minutes.
[2024-11-22 19:41] LABS: VBG HCO3 18 mmol/L (22-26); VBG pCO2 45 mmHg; VBG pO2 24 mmHg
[2024-11-22 19:53] LABS: Mean Corpuscular HGB Conc 33.5 g/dl (31.0-36.0); Mean Corpuscular Hemoglobin 30.6 pg (27.0-33.0); Mean Corpuscular Volume 91.4 fL (80.0-98.0); NRBC Pct Auto 0.1 /100WBC (0.0-0.2); Platelet Count 304 X10*3/uL (160-400); Red Blood Count 2.22 X10*6/uL (4.60-5.80); Red Cell Distribution Width 15.9 % (11.0-16.0)
[2024-11-22] MEDS: Vasopressin 20 UNIT/100 ML INFUS..BTL 12 UNIT IVCONT (20:00)
[2024-11-22] MEDS: Phenylephrine HCL 20 MG in 0.9 % Sodium Chloride 250 ML 307.54 MG IVCONT ×2 (20:00→21:05)
[2024-11-22] MEDS: Lidocaine HCl/D5W 2 GM/250 ML IV.SOLN IVCONT (20:00)
[2024-11-22] MEDS: Tranexamic Acid 1,000 MG in 0.9 % Sodium Chloride 50 ML 360 MG IV (20:01)
[2024-11-22 20:05] LABS: White Blood Count 33.4 X10*3/uL (4.8-10.8)
[2024-11-22 20:06] LABS: Hematocrit 20.3 % (42.0-52.0); Hemoglobin 6.8 g/dl (14.0-18.0)
--- NOTE | 2024-11-22 20:06 | PC.NURSE ---
Assumed care at 0700- pt. A&Ox4, O2 sats >95% on IVTZ21V 40% , RR 16-24, c/o pain at previous chest tube site- medicated per MAR. Pt. Transitioned to NC by RT. MAPs 55-70, notified- Albumin x1 given. Repeat CBC done at approx 0900- see results. 1 U RBCs ordered, given per TAR. MAPs sustaining >65. Repeat CXR performed- see results. Chest CT ordered by . At Approx [address] by this RN. Upon return to the unit at approx 1630 pt. c/o severe and worsened R chest pain- RR 16-20, no c/o SOB, 02 sat >95%. notified and PRNs ordered and administered per MAR. At approx. 1700 pt. HR sustaining 130s-140s. Pt. c/o mild SOB, O2 sats >95%. MD notified. No new orders at this time. At Approx 1745 pt. with significant palor and diaphoresis. HR remaining 130s-140s, Pt. c/o severe SOB, O2 sats >90%. MD called via telephone- 3 units RBCs and 1 unit platelets ordered and administered per TAR. At 1800 MD called via telephone for pt. increased restlessness /anxiety / sense of impending doom. VO from MD to run all blood products concurrently at bolus rate. Rt at bedside- pt. placed on max HFNC settings with NRB. At 1815 pt. becoming increasingly pale, less responsive, and decreasing BPs with MAPs >65. RN OPERATING ROOM called via telephone- levophed gtt started per RN OPERATING ROOM and titrated per MAR- preparations made for intubation. At 182 RN OPERATING ROOM at [facility]. at 182 50 mg propofol IVP and 50mg Rocuronium given for intubation. Pt. intubated by RN OPERATING ROOM at 182. Placement confirmed by B/L breath sounds and positive color change. Pt. HR down to 70s- IVP epi given per RN OPERATING ROOM at 183 and 183. Pt. placed on backboard, pacer pads placed. Pulses lost at 183- code blue called, CPR started. See paper code blue documentation. Rosc achieved at 1900. Gtts adminsitered and titrated per JAN. Family called and updated by RN OPERATING ROOM. Change of shift report given to night shift supervisor RN.
[2024-11-22 20:15] LABS: Alanine Aminotransferase 113 U/L (0-40); Albumin Level 2.5 g/dL (3.5-5.0); Alkaline Phosphatase 52 U/L (39-117); Anion Gap 20 (12-20); Aspartate Amino Transferase 106 U/L (5-37); Bilirubin Total 0.7 mg/dL (0.0-1.0); Blood Urea Nitrogen 26 mg/dL (9-16); Calcium 7.8 mg/dL (8.4-10.2); Carbon Dioxide 14 mmol/L (22-29); Chloride 107 mmol/L (96-108); Estimated Glomerular Filt Rate > 60; Glucose Random 176 mg/dL (60-115); Magnesium 2.9 mg/dL (1.6-2.6); Phosphorus 7.1 mg/dL (2.7-4.5); Potassium 5.6 mmol/L (3.3-5.1); Sodium 135 mmol/L (135-145); Total Protein 4.1 g/dL (6.5-8.0)
[2024-11-22 20:23] LABS: Band Neutrophils Percent 6 % (3-5); Lymphocytes Absolute Manual 5.3 X10*3/uL (1.2-4.9); Lymphocytes Percent Manual 16 % (20-40); Metamyelocytes Absolute 1.7 X10*3/uL; Metamyelocytes Percent 5 %; Monocytes Absolute Manual 1.7 X10*3/uL (0.1-1.2); Monocytes Percent Manual 5 % (2-11); Myelocytes Absolute 2.3 X10*/uL; Myelocytes Percent 7 %; Neutrophils Absolute Manual 21.4 X10*3/uL (2.0-8.3); Neutrophils Percent Manual 58 % (45-73); Promyelocytes Percent 3 %
[2024-11-22 20:26] LABS: Acanthocytes 1+ (0-2) /OIF; Burr Cells 3+ (>5) /OIF; Ovalocytes 1+ (5-14) /OIF
[2024-11-22 20:27] LABS: Platelet Estimate NORMAL (NORMAL); Platelet Morphology Comment NORMAL; RBC Morphology NOTED
[2024-11-22 20:28] LABS: VBG Base Excess -20.4 mmol/L; VBG HCO3 10 mmol/L (22-26); VBG pCO2 41 mmHg; VBG pH 6.97 (7.32-7.43); VBG pO2 83 mmHg
[2024-11-22] MEDS: Sodium Bicarbonate 8.4% 150 MEQ in Dextrose 5 % 850 ML 100 MEQ IV (20:30)
[2024-11-22] MEDS: Phenylephrine HCL 1,000 MCG/10 ML SYRINGE 1000 MCG IVPUSH (20:57)
[2024-11-22] MEDS: propofoL 200 MG/20 ML VIAL 50 MG IVPUSH (20:57)
[2024-11-22] MEDS: Norepinephrine Bitartrate/NS 32 MG/250 ML PLAST..BAG 31.78 MG IVCONT (21:01)
[2024-11-22] MEDS: Phenylephrine HCL 100 MG in 0.9 % Sodium Chloride 250 ML 63.46 MG IVCONT (21:02)
[2024-11-22] MEDS: Chlorhexidine Gluc Oral Rinse 15 ML MOUTHWASH BUCCAL (21:11)
[2024-11-22 21:34] LABS: VBG Base Excess -18.9 mmol/L; VBG HCO3 10 mmol/L (22-26); VBG pCO2 35 mmHg; VBG pH 7.04 (7.32-7.43); VBG pO2 47 mmHg
--- NOTE | 2024-11-22 22:14 | W.PM.CCHP ---
Procedures Date of Service Date of Service: 11/22/24 Intubation Intubation Comments: Patient's clinical status deteriorating, requiring emergent intubation for airway protection.?Patient intubated with 7.5 cuffed ET tube under glide scope guidance with visualization of vocal cords, without immediate complications. ET tube position verified with Chest XRAY. Consent for Procedure: Emergent-no informed consent obtained Time out performed: Yes Sedative: propofol Mg given: 50 Paralytic: rocuronium Mg given: 50 Laryngoscope: fiber optic video scope ET tube size: 7.5 ET tube uncuffed: No Tube secured depth (cm): 24 Tube secured location: lips Tube placement confirmation: visualized tube passing through cords, equal breath sounds bilaterally, no breath sounds over epigastrium and confirmation by capnometry Patient tolerated procedure: well and no complications Intubation complications: none
--- NOTE | 2024-11-22 22:17 | W.PM.CCHP ---
Procedures Date of Service Date of Service: 11/22/24 Arterial Line Arterial Line Comments: Patient is post cardiac arrest, requiring a line for due to multiple pressors Consent: Emergent-no informed consent obtained Sterile Technique Used: Yes Time out performed: Yes Size (Gauge): 20 Technique used: other (US/ DIRECT PUNCTURE) Post-Procedure: line sutured into place and dry sterile dressing placed Patient tolerated procedure: well and no complications Complications: none Site: right and radial Central Line Placement Right IJ: Central Line Comments: Patient is status post cardiac arrest, requiring emergent central line placement. Right internal jugular triple lumen central venous catheter placed in usual sterile conditions under ultrasound guidance for approprite vascular access without immediate complications. Central line position verified with Chest XRAY. Consent for Procedure: Emergent-no informed consent obtained Time out performed: Yes Sterile Technique Used: Yes Patient placed on monitor/pulse ox: Yes prep: mask, gown and gloves Central line prep: Chlorhexidine scrub Local anesthesia used: other anesthetic (Post cardiac arrest) Ultrasound used for placement: Yes Central line lumen inserted: triple Post procedure: sutured in place, good blood return, all ports aspirated, flushed, capped and sterile dressing applied Post procedure x-ray: tip of catheter in good position and no pneumothorax seen Patient tolerated procedure: well and no complications Complications: none
--- NOTE | 2024-11-22 22:20 | PM.CCN ---
Critical Care Event Note Summary Date of Service: 11/22/24 <Lilo Ruelas NP - Last Filed: 11/23/24 01:09> Code activated: Yes <Lilo Ruelas NP - Last Filed: 11/23/24 01:09> Narrative: This case had a high probability of a clinically significant, sudden, or life threatening deterioration of this patient's condition which required my full and direct attention, intervention and personal management. <Lilo Ruelas NP - Last Filed: 11/23/24 01:09> Critical Care Time (minutes): 120 <Lilo Ruelas NP - Last Filed: 11/23/24 01:09> Comment: ?Patient?s clinical status decompensated in the afternoon,? becoming tachycardic? and diaphoretic,? CT scan with IV contrast resulted with concerns of right pneumothorax with active extravasation,? attending Dr. Hayes,? contacted? thoracic surgery Dr Velazco,, who recommends IR embolization,? also? a total of 4 pRBC, 2 FFP, 2 PLT, and Ca 2g ordered.? Dr Hayes? contacted [facility], [facility],? and [facility].? [facility] accepted, Patient was on high-flow nasal cannula, when [facility] had accepted.? Patient continued to decline rapidly, ? unable to obtain O2 sats,? becoming altered,? and hypotensive. ? Requiring emergent intubation, Started on a maxed Levophed drip and? IV push phenylephrine during intubation Post intubation,? patient continued to decline,? subsequently becoming asystole with initiation of CPR,? ACLS followed. ? VFib/ torsades arrest, multiple rounds of epinephrine, bicarb, calcium chloride, magnesium, IV? push lidocaine, IV? push amiodarone, and? shocks.? ROSC was achieved after approximately 27 minutes.? Patient maxed out on Levophed, vasopressin, phenylephrine, and epinephrine drip quickly after cardiac arrest.? Started on lidocaine drip, Bicarb drip.? And given 2 more additional RBCs.? ?Sister Khushi dubon? who is listed as healthcare proxy in the chart,? called and informed of patient?s status.? Khushi lives in [place],? unable to come to bedside, but multiple family members? came to bedside? and updated over the phone (Brother Gagan Lobo, Ancelmo Lobo and sister Daniela Lobo).? ?Post cardiac arrest,? I attempted to have the patient transferred to [facility],? but unable to obtain transport? due to acuity of the patient and weather.? ?Despite all efforts patient continued to decline,? I informed family, ? who requested to continue full code.? Patient?s cardiac arrested 2 more times. Please see code sheets,? with ultimately time of 2306.? On my assessment, the patient had absent peripheral pulses.? Pupils fixed and dilated.? Absent heart sounds? and no spontaneous breathing. driver's license examiner contacted,? and accepted the patient case # [id number]. [address] Hayes? notified.? Organ donation notified by nursing ?No lactic obtained as this was hemorrhagic shock <Lilo Ruelas NP - Last Filed: 11/23/24 01:09> CT chest with IV contrast resulted with concerns of right pneumothorax with active extravasation. Dr. Hayes discussed with?thoracic surgery, Dr. Velazco, who recommended IR embolization. Of note, IR not available over the weekend. Concurrently, patient began decompensating, becoming increasingly tachycardic?and diaphoretic. A total of 4 pRBC, 2 FFP, 2 PLT, and Ca 2g ordered. Dr. Hayes?contacted [facility], and [facility]. [facility] and [facility] at full capacity and unable to accept patient. [facility] accepted. Patient then became increasingly hypoxic, placed on HFNC. Subsequently, O2 sats and BPs were unable to be obtained. Patient continued to decompensate rapidly, becoming increasingly encephalopathic. Decision made to emergently intubate. Patient started and maintained on norepinephrine gtt and administered phenylephrine pushes throughout intubation. Patient continued to decline rapidly following intubation. Patient demonstrated asystole. CPR was started immediately and ACLS was followed. Patient later demonstated ventricular fibrillation, possible torsades de pointes. Multiple rounds of epinephrine, amiodarone, lidocaine, bicarbonate, calcium, magnesium, and shocks given. ROSC was achieved after approximately 27 minutes. Patient's sister and healthcare proxy, Khushi Lobo, was called and informed of patient?s exceedingly guarded clinical status. Of note, Khushi lives in [place], but multiple loved ones?arrived at bedside. Additional siblings (Gagan Lobo, Ancelmo Lobo, and Daniela Lobo) were updated via phone.? Following ROSC, patient on maximum norepinephrine, vasopressin, phenylephrine, and epinephrine gtts. Patient was also started on lidocaine and bicarbonate gtts. Of note, emergent transfusions were ongoing throughout resuscitation and attempts were made to maintain normothermia. Multiple attempts were made to transfer patient to [facility], though not possible due to patient's critical condition and weather. Despite these efforts, patient continued to decline. Patient suffered 2 additional cardiac arrests, and again ACLS was followed. Time of was declared at 23:07.? On my assessment, patient had absent heart sounds, breath sounds, peripheral pulses, and pupils fixed and dilated. Case discussed with medical records receptionist and accepted (case# [id number]). Organ donation notified by nursing. Dr. Hayes notified. No lactic obtained as this was hemorrhagic shock. <Michelle Hayes MD - Last Filed: 11/23/24 08:08>
[2024-11-22 23:06] LABS: Venous Blood Gas Refer to POC result
[2024-11-22 23:06] LABS: Venous Blood Gas Refer to POC result
[2024-11-22 23:10] LABS: Venous Blood Gas Refer to POC result
[2024-11-22 23:35] LABS: ABG Refer to POC result
[2024-11-22 23:35] LABS: ABG Refer to POC result
--- NOTE | 2024-11-23 01:09 | PM.DDS ---
Discharge Sum: Prov Provider Primary care physician: Leonardo Physician <Lilo Ruelas INSTANT PRINT OPERATOR - Last Filed: 11/23/24 01:18> Admitting clinician: Tegan Lam <Lilo Ruelas NP - Last Filed: 11/23/24 01:18> Attending physician on admission: Tori Borjas <Lilo Ruelas INSTANT PRINT OPERATOR - Last Filed: 11/23/24 01:18> Consults: 11/04/24 23:44 Consult to Pulmonology Routine Consulting Provider: [facility] Pulmonology Services Reason for consultation: right sided mass ?developing abscess 11/21/24 04:29 Consult to Thoracic Surgery Stat Consulting Provider: Bulmaro Velazco Reason for consultation: increasing right pneumothorax <Lilo Ruelas NP - Last Filed: 11/23/24 01:18> Pronouncing clinician: Lilo Ruelas <Lilo Ruelas NP - Last Filed: 11/23/24 01:18> Discharge Sum: Diag PCOD Cause of : Cardiopulmonary arrest <Lilo Ruelas NP - Last Filed: 11/23/24 01:18> Contributing Factors (1) Hemothorax on right: (2) Acute hypoxemic respiratory failure: (3) Postobstructive pneumonia: (4) Lung mass: Discharge Sum: Summary Date and Time Date of admission: 11/04/24 23:47 <Lilo Ruelas NP - Last Filed: 11/23/24 01:18> Date of : 11/22/24 <Lilo Ruelas NP - Last Filed: 11/23/24 01:18> Time of : 23:07 <Lilo Ruelas NP - Last Filed: 11/23/24 01:18> Summary Details: 44 Y M w/ prior incarceration and undomiciled, MAC pneumonia c/b pulmonary abscess, multiple admissions in recent months d/t pneumonia, re-presented to emergency department on 11/05 w/ dyspnea, pleuritic chest pain, found to be hypoxic, admitted medicine; patient had work-up demonstrating 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 On 11/22/24? Patient?s clinical status decompensated in the afternoon,? becoming tachycardic? and diaphoretic,? CT scan with IV contrast resulted with concerns of right pneumothorax with active extravasation,? attending Dr. Hayes,? contacted? thoracic surgery Dr Velazco,, who recommends IR embolization,? also? a total of 4 pRBC, 2 FFP, 2 PLT, and Ca 2g ordered.? Dr Hayes? contacted [facility], [facility],? and [facility].? [facility] accepted, Patient was on high-flow nasal cannula, when [facility] had accepted.? Patient continued to decline rapidly, ? unable to obtain O2 sats,? becoming altered,? and hypotensive. ? Requiring emergent intubation, Started on a maxed Levophed drip and? IV push phenylephrine during intubation Post intubation,? patient continued to decline,? subsequently becoming asystole with initiation of CPR,? ACLS followed. ? VFib/ torsades arrest, multiple rounds of epinephrine, bicarb, calcium chloride, magnesium, IV? push lidocaine, IV? push amiodarone, and? shocks.? ROSC was achieved after approximately 27 minutes.? Patient maxed out on Levophed, vasopressin, phenylephrine, and epinephrine drip quickly after cardiac arrest.? Started on lidocaine drip, Bicarb drip.? And given 2 more additional RBCs.? ?Sister Khushi dubon? who is listed as healthcare proxy in the chart,? called and informed of patient?s status.? Khushi lives in [place],? unable to come to bedside, but multiple family members? came to bedside? and updated over the phone (Brother Gagan Lobo, Ancelmo Yamil and sister Daniela Lobo).? ?Post cardiac arrest,? I attempted to have the patient transferred to [facility],? but unable to obtain transport? due to acuity of the patient and weather.? ?Despite all efforts patient continued to decline,? I informed family, ? who requested to continue full code.? Patient?s cardiac arrested 2 more times. Please see code sheets,? will ultimately time of 2307 of 11/22/2024 On my assessment, the patient had absent peripheral pulses.? Pupils fixed and dilated.? Absent heart sounds? and no spontaneous breathing. roll examiner contacted,? and accepted the patient case # [id number]. Att[address] Hayes? notified.? Organ donation notified by nursing. No form, as this is a [place] case ?No lactic obtained as this was hemorrhagic shock. No septic shock <Lilo Ruelas NP - Last Filed: 11/23/24 01:18> Mr. 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 Mr. Lobo was subsequently admitted to ICU following bronchoscopy due to persistent hypoxia and was ultimately extubated on 11/11. On 11/13, Mr. Lobo was downgraded to medicine. On 11/18, a chest tube was placed for persistent R pneumothorax by IR. On 11/20 PM, Mr. Lobo developed worsening hypoxia, prompting ICU re-admission. On 11/22, Mr. Lobo's respiratory status improved, though laboratories demonstrated acute anemia. Mr. Lobo demonstrated intermittent mild hypotension, though he was otherwise hemodynamically and clinically stable. A CT chest was obtained and resulted with concerns of right hemothorax with active extravasation. Mr. Lobo's case was discussed with?thoracic surgery, who recommended IR embolization. Efforts were underway to transfer Mr. Lobo, after which [facility] accepted. Concurrently, patient began rapidly decompensating, becoming increasingly tachycardic, hypoxic, and encephalopathic and was emergently intubated. Following intubation, Mr. Lobo continued to decline and suffered a cardiac arrest with return of spontaneous circulation after about 30 minutes. Mr. Lobo's family were called and informed, and some loved ones were able to come to bedside. Mr. Gunters clinical status continued to decline despite 4 vasopressor gtts at maximum doses, lidocaine, bicarbonate gtts, and ongoing emergent transfusions. Multiple attempts were made to transfer patient to [facility], though not possible due to Mr. Lobo's critical condition and weather. Despite these efforts, Mr. Lobo continued to decline and suffered 2 additional cardiac arrests. Time of was declared at 23:07. <Michelle Hayes MD - Last Filed: 11/23/24 08:30> Additional Data Confirmation of as documented by pronouncing clinician: no pulse, no respirations, no heart sounds and pupils fixed and dilated <Michelle Hayes MD - Last Filed: 11/23/24 08:30> Family: at bedside <Michelle Hayes MD - Last Filed: 11/23/24 08:30> Attending physician: Michelle Hayes MD <Lilo Ruelas NP - Last Filed: 11/23/24 01:18> Autopsy requested?: Yes <Lilo Ruelas NP - Last Filed: 11/23/24 01:18> roll examiner notified?: Yes (CASE # [id number]) <Lilo Ruelas NP - Last Filed: 11/23/24 01:18>
--- NOTE | 2024-11-23 01:33 | PC.NURSE ---
Assumed care of patient at approximately 1900. Upon initial assessment- pt post cardiac arrest. Intubated, ETT 7.5, 24 at the lip, on ACVC+ settings, unable to obtain accurate spO2 reading. Lungs dim/ coarse throughout. Bloody inline secretions, lavaged with cold saline by RT. Tranexamic Acid administered per JAN. Pupils 4mm equal/ sluggish. Absent cough and gag. No pain response. Flaccid extremities. Pt on Vasopressin, Norepinephrine, Lidocaine, Phenylephrine, Epinephrine and Bicarb gtts- administered and titrated per JAN. TLC placed to right IJ by CHAR HOUSE SUPERVISOR- confirmed with XR. Difficult to obtain NIBP, CHAR HOUSE SUPERVISOR aware, new A-line placed to right radial artery. Additional blood products administered (see TAR).? CHAR HOUSE SUPERVISOR updated HCP/family. Family to bedside.? Patient continued to decline- patient nito'd down to asystole at 2227, code blue initiated- see code blue sheet, ROSC obtained at 2238. Again, patient nito'd down to asystole at 2302, code blue initiated- see code blue sheet. Code called at 2306, pt / pronounced by Lilo Ruelas NP, time of 2306.? CHAR HOUSE SUPERVISOR notified HCP/sister Khushi. Other family members at bedside.? Post mortem care provided. Patients belongings sent to [facility] with patient- including a cellphone, hat, shoes, blanket, and adela.? property insurance claims examiner contacted by CHAR HOUSE SUPERVISOR,? case accepted, case# [id number]. [facility] notified by this RN at 6049, spoke with Edd, patient was declined, Case# [id number].
== END 2024-11-22 23:07 | disposition expired | DRG 720 ==
LOC: HO.ED 22:29 → HO.EDOVER 11-05 00:21 → HO.S3 11-05 05:30 → HO.EDOVER 11-05 06:23 → HO.IMC 11-05 07:47 → HO.ICU 11-06 16:01 → HO.IMC 11-13 16:22 → HO.ICU 11-21 12:33
PROVIDERS: Hospitalist; Internal Medicine Critical Care Medicine; Internal Medicine Pulmonary Disease; Nurse Practitioner Acute Care; Nurse Practitioner Family; Physician Assistant Medical; Radiology Vascular & Interventional Radiology; Registered Nurse Community Health; Admitting Provider Student in an Organized Health Care Education/Training Program; Emergency Provider Emergency Medicine; Visit Provider Internal Medicine Critical Care Medicine
PROC: 0BJ08ZZ Inspection of Tracheobronchial Tree, Via Natural or Artificial Opening Endoscopic (ICD-10-PCS; CPT 31622; principal; 2024-11-06 14:00)
PROC: (CPT 32551; principal; 2024-11-18 10:30)
DX: A41.9 Sepsis, unspecified organism (principal); J96.01 Acute respiratory failure with hypoxia; R57.8 Other shock; J85.1 Abscess of lung with pneumonia; J85.0 Gangrene and necrosis of lung; G93.41 Metabolic encephalopathy; J94.2 Hemothorax; J91.8 Pleural effusion in other conditions classified elsewhere; I46.9 Cardiac arrest, cause unspecified; E83.39 Other disorders of phosphorus metabolism; R04.2 Hemoptysis; D64.9 Anemia, unspecified; J98.11 Atelectasis; D75.838 Other thrombocytosis; Z20.822 Contact with and (suspected) exposure to COVID-19; Z87.01 Personal history of pneumonia (recurrent); Z87.891 Personal history of nicotine dependence; Z79.899 Other long term (current) drug therapy
CPT/HCPCS: 0241U; 36415; 49405; 71045; 71260; 80048; 80053; 80202; 82040; 82042; 82150; 82565; 82803; 82945; 82947; 83605; 83615; 83735; 83986; 84100; 84157; 84484; 85007; 85025; 85027; 85610; 86850; 86900; 86901; 86923; 87040; 87070; 87073; 87102; 87116; 87205; 87206; 87633; 87640; 87641; 88112; 88305; 88312; 88341; 88342; 89051; 93005; 94002; 94003; 94640; 94799; 99152; 99153; 99285; C1729; C1758; J0131; J0171; J0282; J0456; J0613; J0692; J0696; J1171; J1650; J1720; J1885; J1940; J2002; J2003; J2060; J2250; J2251; J2270; J2371; J2405; J2470; J2543; J2598; J2704; J2765; J2919; J3010; J3370; J3371; J3475; P9016; P9017; P9047; P9073; Q9967

== ENCOUNTER → 2024-11-04 21:40 | Outpatient (BNV) | payer OTHER, SELFPAY | PROVIDERS: Admitting Provider Student in an Organized Health Care Education/Training Program; Emergency Provider Emergency Medicine; Visit Provider Internal Medicine Cardiovascular Disease | DX: R06.02 Shortness of breath (principal) | CPT/HCPCS: 93010 ==

== ENCOUNTER → 2024-11-04 21:40 | Outpatient (BNV) | payer OTHER, SELFPAY | PROVIDERS: Emergency Provider Emergency Medicine; Visit Provider Radiology Diagnostic Radiology | DX: R06.02 Shortness of breath (principal) | CPT/HCPCS: 71045; 71260 ==

== ENCOUNTER 2024-11-04 23:47 | Outpatient (BNV) | payer OTHER, SELFPAY | END 2024-11-11 15:30 | PROVIDERS: Admitting Provider Student in an Organized Health Care Education/Training Program; Emergency Provider Emergency Medicine; Visit Provider Radiology Diagnostic Radiology | DX: R06.02 Shortness of breath (principal) | CPT/HCPCS: 71045 ==

== ENCOUNTER 2024-11-04 23:47 | Outpatient (BNV) | payer OTHER, SELFPAY | END 2024-11-18 10:52 | PROVIDERS: Admitting Provider Student in an Organized Health Care Education/Training Program; Emergency Provider Emergency Medicine; Visit Provider Physician Assistant Surgical | DX: J85.1 Abscess of lung with pneumonia (principal) | CPT/HCPCS: 49405 ==

== ENCOUNTER 2024-11-04 23:47 | Outpatient (BNV) | payer OTHER, SELFPAY | END 2024-11-12 00:46 | PROVIDERS: Admitting Provider Student in an Organized Health Care Education/Training Program; Emergency Provider Emergency Medicine; Visit Provider Internal Medicine | DX: R07.9 Chest pain, unspecified (principal) | CPT/HCPCS: 93010 ==

== ENCOUNTER 2024-11-04 23:47 | Outpatient (BNV) | payer OTHER, SELFPAY | END 2024-11-07 08:00 | PROVIDERS: Admitting Provider Student in an Organized Health Care Education/Training Program; Emergency Provider Emergency Medicine; Visit Provider Specialist | DX: R06.00 Dyspnea, unspecified (principal) | CPT/HCPCS: 71045 ==

== ENCOUNTER 2024-11-04 23:47 | Outpatient (BNV) | payer OTHER, SELFPAY | END 2024-11-17 09:30 | PROVIDERS: Admitting Provider Student in an Organized Health Care Education/Training Program; Emergency Provider Emergency Medicine; Visit Provider Radiology Diagnostic Radiology | DX: R06.00 Dyspnea, unspecified (principal) | CPT/HCPCS: 71045 ==

== ENCOUNTER 2024-11-04 23:47 | Outpatient (BNV) | payer OTHER, SELFPAY | END 2024-11-22 11:10 | PROVIDERS: Admitting Provider Student in an Organized Health Care Education/Training Program; Emergency Provider Emergency Medicine; Visit Provider Radiology Diagnostic Radiology | DX: J96.01 Acute respiratory failure with hypoxia (principal) | CPT/HCPCS: 71045; 71260 ==

== ENCOUNTER 2024-11-04 23:47 | Outpatient (BNV) | payer OTHER, SELFPAY | END 2024-11-16 09:20 | PROVIDERS: Admitting Provider Student in an Organized Health Care Education/Training Program; Emergency Provider Emergency Medicine; Visit Provider Radiology Diagnostic Radiology | DX: R06.00 Dyspnea, unspecified (principal) | CPT/HCPCS: 71045 ==

== ENCOUNTER 2024-11-04 23:47 | Outpatient (BNV) | payer OTHER, SELFPAY | END 2024-11-09 08:40 | PROVIDERS: Admitting Provider Student in an Organized Health Care Education/Training Program; Emergency Provider Emergency Medicine; Visit Provider Radiology Diagnostic Radiology | DX: J96.01 Acute respiratory failure with hypoxia (principal) | CPT/HCPCS: 71045 ==

== ENCOUNTER 2024-11-04 23:47 | Outpatient (BNV) | payer OTHER, SELFPAY | END 2024-11-06 15:10 | PROVIDERS: Admitting Provider Student in an Organized Health Care Education/Training Program; Emergency Provider Emergency Medicine; Visit Provider Radiology Diagnostic Radiology | DX: R91.8 Other nonspecific abnormal finding of lung field (principal) | CPT/HCPCS: 71045 ==

== ENCOUNTER 2024-11-04 23:47 | Outpatient (BNV) | payer OTHER, SELFPAY | END 2024-11-21 03:50 | PROVIDERS: Admitting Provider Student in an Organized Health Care Education/Training Program; Emergency Provider Emergency Medicine; Visit Provider Radiology Diagnostic Radiology | DX: J96.01 Acute respiratory failure with hypoxia (principal) | CPT/HCPCS: 71045 ==

== ENCOUNTER 2024-11-04 23:47 | Outpatient (BNV) | payer OTHER, SELFPAY | END 2024-11-08 00:45 | PROVIDERS: Admitting Provider Student in an Organized Health Care Education/Training Program; Emergency Provider Emergency Medicine; Visit Provider Radiology Diagnostic Radiology | DX: R06.00 Dyspnea, unspecified (principal) | CPT/HCPCS: 71045 ==

== ENCOUNTER 2024-11-04 23:47 | Outpatient (BNV) | payer OTHER, SELFPAY | END 2024-11-10 05:00 | PROVIDERS: Admitting Provider Student in an Organized Health Care Education/Training Program; Emergency Provider Emergency Medicine; Visit Provider Radiology Diagnostic Radiology | DX: J96.01 Acute respiratory failure with hypoxia (principal) | CPT/HCPCS: 71045 ==

== ENCOUNTER 2024-11-04 23:47 | Outpatient (BNV) | payer OTHER, SELFPAY | END 2024-11-19 09:40 | PROVIDERS: Admitting Provider Student in an Organized Health Care Education/Training Program; Emergency Provider Emergency Medicine; Visit Provider Radiology Diagnostic Radiology | DX: J94.2 Hemothorax (principal) | CPT/HCPCS: 71045 ==

== ENCOUNTER 2024-11-04 23:47 | Outpatient (BNV) | payer OTHER, SELFPAY | END 2024-11-14 16:04 | PROVIDERS: Admitting Provider Student in an Organized Health Care Education/Training Program; Emergency Provider Emergency Medicine; Visit Provider Radiology Diagnostic Radiology | DX: R06.00 Dyspnea, unspecified (principal) | CPT/HCPCS: 71260 ==

== ENCOUNTER 2024-11-04 23:47 | Outpatient (BNV) | payer OTHER, SELFPAY | END 2024-11-11 18:06 | PROVIDERS: Admitting Provider Student in an Organized Health Care Education/Training Program; Emergency Provider Emergency Medicine; Visit Provider Internal Medicine | DX: R07.9 Chest pain, unspecified (principal) | CPT/HCPCS: 93010 ==

== ENCOUNTER → 2024-11-04 23:47 | Outpatient (BNV) | payer OTHER, SELFPAY | PROVIDERS: Admitting Provider Student in an Organized Health Care Education/Training Program; Emergency Provider Emergency Medicine; Visit Provider Surgery | DX: R91.8 Other nonspecific abnormal finding of lung field (principal); J18.9 Pneumonia, unspecified organism; J96.01 Acute respiratory failure with hypoxia | CPT/HCPCS: 99223 ==

== ENCOUNTER → 2024-11-04 23:47 | Outpatient (BNV) | payer OTHER, SELFPAY | PROVIDERS: Admitting Provider Student in an Organized Health Care Education/Training Program; Emergency Provider Emergency Medicine; Visit Provider Physician Assistant | DX: J96.01 Acute respiratory failure with hypoxia (principal); J18.9 Pneumonia, unspecified organism; R91.8 Other nonspecific abnormal finding of lung field | CPT/HCPCS: 99232; 99233; 99499 ==

== ENCOUNTER → 2024-11-04 23:47 | Outpatient (BNV) | payer OTHER, SELFPAY | PROVIDERS: Admitting Provider Student in an Organized Health Care Education/Training Program; Emergency Provider Emergency Medicine; Visit Provider Hospitalist | DX: R91.8 Other nonspecific abnormal finding of lung field (principal); J18.9 Pneumonia, unspecified organism; J96.01 Acute respiratory failure with hypoxia; J98.11 Atelectasis | CPT/HCPCS: 99223 ==

== ENCOUNTER → 2024-11-04 23:47 | Outpatient (BNV) | payer OTHER, SELFPAY | PROVIDERS: Admitting Provider Student in an Organized Health Care Education/Training Program; Emergency Provider Emergency Medicine; Visit Provider Internal Medicine Critical Care Medicine | DX: J96.01 Acute respiratory failure with hypoxia (principal); R91.8 Other nonspecific abnormal finding of lung field; G93.40 Encephalopathy, unspecified | CPT/HCPCS: 31500; 31615; 99291; 99292 ==